=== PATIENT | female | born 1930 | race Caucasian/White ===

== ENCOUNTER 2017-10-23 11:25 | Observation (INO) ==
[2017-10-23] MEDS ORDERED: Aspirin 81 MG TAB.CHEW PO ONE (11:34)
--- NOTE | 2017-10-23 11:48 | Emergency Department Note ---
Disposition Clinical Impression: SOB (shortness of breath) Chest pain Qualifiers: Chest pain type: unspecified Qualified Code(s): R07.9 - Chest pain, unspecified Disposition: Admitted As Inpatient Time of Disposition: 13:41 General Adult HPI - General Chief complaint: ED Chest Pain Stated complaint: chest pain Time Seen by Provider: 10/23/17 11:34 Source: patient, family, EMS Mode of arrival: EMS Limitations: no limitations Nursing Notes Reviewed: Yes Vital Signs Reviewed: Yes - History of Present Illness HPI Narrative: 87-year-old female presenting to the emergency department with chief complaint of left flank pain. According to daughter at bedside patient woke up this morning and had some increasing shortness of breath. She normally does not wear oxygen at home. She needs to wear oxygen to catch her breath. She started stating that her left side under her ribs hurt. The pain did not radiate anywhere. Patient took 3 nitroglycerin home. She stated the first 2 did not help but the third completely relieved her pain. Patient also has a significant past history of atrial fibrillation currently on Coumadin. She also has a history of CHF. Patient did have open-heart surgery in the late 80s. She does follow with cardiology here. They attended to complete a catheterization recently but stated they were unable to because of issues when they hold the Coumadin. Last catheterization she had a stroke. Patient denies any fever, cough or chest pain at this time. Patient is also currently being treated for a urinary tract infection with Bactrim. They started this on Monday. They believe it is a 10 day course. Pain Scale: 0 - Related Data Home Medications Medication Instructions Recorded Confirmed Calcium-Vit D3-Vit K Soft Chew 01/26/17 Citalopram 01/26/17 Coumadin 01/26/17 Ferrous Sulfate 01/26/17 Glimepiride 01/26/17 HYDROcodone/Acet 7.5/325 mg 01/26/17 Losartan Potassium 01/26/17 Metoprolol 01/26/17 Nitroglycerin 01/26/17 Omeprazole 01/26/17 Proair Hfa 01/26/17 Simvastatin 01/26/17 Sucralfate 01/26/17 Vitamin D3 01/26/17 Xanax 0.5 MG Tablet 01/26/17 Zetia 01/26/17 Previous Rx's Medication Instructions Recorded methylPREDNISolone [Medrol] 4 - 24 mg PO DAILY #21 tablet 01/26/17 Ondansetron ODT [Zofran ODT] 4 mg SL Q6HR #10 tab.rapdis 02/07/17 Allergies Allergy/AdvReac Type Severity Reaction Status Date / Time Penicillins AdvReac Anaphylaxis Verified 01/26/17 16:43 All systems ED: reviewed and negative except as stated. Constitutional: Denies: fever, chills Eyes: Reports: as per HPI ENT ED: Reports: as per HPI Cardiovascular: Reports: as per HPI Respiratory: Reports: dyspnea. Denies: cough, wheezes Gastrointestinal: Denies: abdominal pain, nausea, vomiting Past Medical History - Past Medical History Attestation: Yes The following information was validated with the patient. Medical history: Reports: arthritis, asthma, atrial fibrillation, CHF, coronary artery disease, CVA, diabetes, GERD, hyperlipidemia, hypertension, myocardial infarction, TIA, other Surgical history: Reports: coronary bypass (CABG), hysterectomy Psychiatric history: Reports: no psych history MANAGER UNDERWRITING history: Reports: non-contributory - Social History Smoking Status: Never smoker Smokeless Tobacco Status: No Alcohol use: Reports: none Drug use: Reports: none Physical Exam - General Limitations: no limitations General appearance: alert, in no apparent distress - Head Head exam: atraumatic, normocephalic, normal inspection - Eye Eye exam: Present: normal appearance. Absent: scleral icterus, conjunctival injection - Chest Chest inspection: Present: normal inspection, symmetric chest wall rise. Absent : tenderness, rash - Respiratory Respiratory exam: Present: other (Decreased breath sounds bilaterally) - Cardiovascular Cardiovascular exam: Present: regular rate, irregular rhythm - Abdominal Exam Abdominal exam: Present: soft, Non-Tender, normal bowel sounds. Absent: distention, guarding, rebound, rigidity, Song's sign, Rovsing's sign, tenderness at McBurney's Point - Extremities Exam Extremities exam: Present: normal inspection, full ROM - Back Exam Back exam: Present: normal inspection. Absent: CVA tenderness (R), CVA tenderness (L) - Neurological Exam Neurological exam: Present: alert, oriented X3 - Psychiatric Psychiatric exam: Present: normal affect, normal mood - Skin Skin exam: Present: warm, intact Course Course Narrative: 87-year-old female presenting to the emergency Department chief complaint of left flank pain and shortness of breath. Patient does have significant cardiac history and currently being treated for UTI. We will obtain a chest pain workup including a urinalysis. Patient has no CVA tenderness. She is pain- free at this time. Vital signs are stable. She is alert and oriented 3 in the room. Disposition most likely admission but pending results. - Reevaluation(s) Reevaluation #1: Patient had an episode of chest pain while in the emergency department. Any EKG was repeated and was unchanged. The pain went away before nitroglycerin was able to be given. Patient has not had no other symptoms during her stay. She is alert and oriented 3 with stable vital signs. Lab work shows an elevated troponin I 0.05 but this seems to be chronic for the patient. Radiographs of the chest shows increased venous congestion. We will provide the patient with 40 of IV Lasix. At this time we will admit the patient for further workup for her CHF exacerbation and chest pain. Dr. Umana was the accepting physician. He asked to add a BNP which has been completed. Time: 13:41 Vital Signs Temperature 98.2 F 10/23/17 11:27 Pulse Rate 86 10/23/17 11:27 Respiratory Rate 18 10/23/17 11:27 Blood Pressure 132/81 10/23/17 11:27 O2 Sat by Pulse Oximetry 96 10/23/17 11:27 Temperature 98.2 F 10/23/17 11:27 Pulse Rate 82 10/23/17 12:44 Respiratory Rate 18 10/23/17 12:44 Blood Pressure 132/98 10/23/17 12:44 O2 Sat by Pulse Oximetry 96 10/23/17 12:44 Oxygen Delivery Oxygen Delivery Nasal Cannula Medical Decision Making - Lab Data Result diagrams: 10/23/17 12:16 10/23/17 12:16 Lab Results 10/23/17 10/23/17 10/23/17 Range/Units 11:54 12:16 12:16 WBC 9.7 (4.3-11.1) K/mcL RBC 3.87 (3.82-4.97) M/mcL Hgb 11.7 (11.5-15.4) g/dL Hct 36.3 (35.3-44.9) % MCV 93.8 (83.0-100.0) fL MCH 30.2 (28.0-33.3) pg MCHC 32.2 (31.6-35.5) g/dL RDW 13.4 (11.5-14.5) % Plt Count 182 (140-400) K/mcL MPV 9.4 (9.4-12.4) fL Immature Gran % 0.5 (0-4) % Seg Neutrophils % 83.7 % Lymphocytes % 7.8 % Monocytes % 7.2 % Eosinophils % 0.4 % Basophils % 0.4 % Neutrophils # 8.2 (1.6-8.9) K/mcL Lymphocytes # 0.8 (0.6-4.6) K/mcL Monocytes # 0.7 (0.0-1.3) K/mcL Eosinophils # 0.0 (0.0-0.6) K/mcL Basophils # 0.0 (0.0-0.2) K/mcL PT 39.0 H (9.4-12.1) Seconds INR 3.5 APTT 41.0 H (26.0-36.0) Seconds Sodium (136-145) mEq/L Potassium (3.5-4.5) mEq/L Chloride (98-109) mEq/L Carbon Dioxide (19-29) mEq/L BUN (7-20) mg/dL Creatinine (0.57-1.11) mg/dL Est GFR ( Amer) (> 60) Est GFR (Non-Af Amer) (> 60) BUN/Creatinine Ratio (6-26) Glucose (70-99) mg/dL Calculated Osmolality (280-300) Calcium (8.6-10.8) mg/dL Troponin I (0-0.03) ng/mL Urine Color Yellow (Yellow) Urine Clarity Clear (Clear) Urine pH 7.0 (5.0-8.0) pH Units Ur Specific [place] 1.023 (1.010-1.025) Urine Protein Negative (Neg-Trace) mg/dL Urine Glucose (UA) Normal (Normal) mg/dL Urine Ketones Negative (Negative) mg/dL Urine Blood Negative (Negative) Urine Nitrite Negative (Negative) Urine Bilirubin Small H (Negative) Urine Urobilinogen Normal (Normal) mg/dL Ur Leukocyte Esterase Small H (Negative) Urine Microscopic RBC 5-15 H (0-3) per hpf Urine Microscopic WBC 3-5 H (0-3) per hpf Ur Squamous Epith Cells Many H (None-Few) per lpf Urine Bacteria None Seen (None-Few) per hpf Hyaline Casts None Seen (None-Few) per lpf Ur Culture Indicated? NO (NO) 10/23/17 10/23/17 Range/Units 12:16 12:16 WBC (4.3-11.1) K/mcL RBC (3.82-4.97) M/mcL Hgb (11.5-15.4) g/dL Hct (35.3-44.9) % MCV (83.0-100.0) fL MCH (28.0-33.3) pg MCHC (31.6-35.5) g/dL RDW (11.5-14.5) % Plt Count (140-400) K/mcL MPV (9.4-12.4) fL Immature Gran % (0-4) % Seg Neutrophils % % Lymphocytes % % Monocytes % % Eosinophils % % Basophils % % Neutrophils # (1.6-8.9) K/mcL Lymphocytes # (0.6-4.6) K/mcL Monocytes # (0.0-1.3) K/mcL Eosinophils # (0.0-0.6) K/mcL Basophils # (0.0-0.2) K/mcL PT (9.4-12.1) Seconds INR APTT (26.0-36.0) Seconds Sodium 140 (136-145) mEq/L Potassium 5.1 H (3.5-4.5) mEq/L Chloride 104 (98-109) mEq/L Carbon Dioxide 27 (19-29) mEq/L BUN 19 (7-20) mg/dL Creatinine 1.03 (0.57-1.11) mg/dL Est GFR ( Amer) > 60 (> 60) Est GFR (Non-Af Amer) 51 L (> 60) BUN/Creatinine Ratio 18 (6-26) Glucose 159 H (70-99) mg/dL Calculated Osmolality 296 (280-300) Calcium 8.8 (8.6-10.8) mg/dL Troponin I 0.05 H* (0-0.03) ng/mL Urine Color (Yellow) Urine Clarity (Clear) Urine pH (5.0-8.0) pH Units Ur Specific [place] (1.010-1.025) Urine Protein (Neg-Trace) mg/dL Urine Glucose (UA) (Normal) mg/dL Urine Ketones (Negative) mg/dL Urine Blood (Negative) Urine Nitrite (Negative) Urine Bilirubin (Negative) Urine Urobilinogen (Normal) mg/dL Ur Leukocyte Esterase (Negative) Urine Microscopic RBC (0-3) per hpf Urine Microscopic WBC (0-3) per hpf Ur Squamous Epith Cells (None-Few) per lpf Urine Bacteria (None-Few) per hpf Hyaline Casts (None-Few) per lpf Ur Culture Indicated? (NO) - EKG Data EKG #1 EKG attestation: Yes I reviewed and interpreted this EKG. EKG results narrative: Atrial fibrillation. Rate control a 73 minute. QRS 102, QTC 406. Poor R-wave progression. No signs of acute ST segment elevation or ischemia. When compared to previous EKG completed on 03/13/2017 no significant changes noted. EKG #2 EKG attestation: Yes I reviewed and interpreted this EKG. EKG results narrative: Atrial fibrillation. A 7 bpm. Poor R-wave progression. QRS 100, QTC 438. Compared to previous EKG completed earlier today at 11:31. No significant changes noted.
--- NOTE | 2017-10-23 12:06 | Emergency Department Note ---
START Narrative - START START: I examined this patient and my medical decision-making was reviewed with the PRESSURE SEALER AND TESTER/PA/Advanced Practice Nurse/Resident Physician. I agree with the documented findings, disposition and treatment plan as described except to the extent set forth below. ED attending: Patient's emergency medicine resident Dr. Sherley Draper. Please see copy of this note for H&P evaluation and management and ED disposition. We both had independent [id number] time in contact with this patient. Briefly: A 7-year-old female who presents with chest discomfort and shortness of breath history of CAD and bypass surgery years ago. Patient's daughter provides most the history. EKG shows nonspecific ST-T changes. Patient will get ED workup and admission. Provided 30 minutes critical care services to this patient. Disposition pending
[2017-10-23 12:12] LABS: Bilirubin,Urine Small (Negative); Blood,Urine Negative (Negative); Clarity,Urine Clear (Clear); Color,Urine Yellow (Yellow); Glucose,Urine (UA) Normal (Normal); Ketones,Urine Negative (Negative); Leukocyte Esterase,Urine Small (Negative); Nitrite,Urine Negative (Negative); Protein,Urine Negative (Neg-Trace); Specific Gravity,Urine 1.023 (1.010-1.025); Urobilinogen,Urine Normal (Normal)
[2017-10-23 12:14] LABS: Bacteria,Urine None Seen per hpf (None-Few); Hyaline Casts,Urine None Seen per lpf (None-Few); Squamous Epithelial Cell,Urine Many per lpf (None-Few)
[2017-10-23] MEDS ORDERED: Nitroglycerin 0.4 MG TAB.SUBL SL PRN ×2 (12:23→18:13)
[2017-10-23 12:25] LABS: Basophils % 0.4 %; Eosinophils % 0.4 %; Hematocrit 36.3 % (35.3-44.9); Hemoglobin 11.7 g/dL (11.5-15.4); Immature Granulocytes % 0.5 % (0-4); Lymphocytes # 0.8 K/mcL (0.6-4.6); Lymphocytes % 7.8 %; Mean Corpuscular HGB Conc 32.2 g/dL (31.6-35.5); Mean Corpuscular Hemoglobin 30.2 pg (28.0-33.3); Mean Corpuscular Volume 93.8 fL (83.0-100.0); Mean Platelet Volume 9.4 fL (9.4-12.4); Monocytes # 0.7 K/mcL (0.0-1.3); Monocytes % 7.2 %; Neutrophils # 8.2 K/mcL (1.6-8.9); Platelet Count 182 K/mcL (140-400); Red Blood Count 3.87 M/mcL (3.82-4.97); Red Cell Distribution Width 13.4 % (11.5-14.5); Segmented Neutrophils % 83.7 %
[2017-10-23 12:31] LABS: INR 3.5
[2017-10-23 12:40] LABS: BUN/Creatinine Ratio 18 (6-26); Blood Urea Nitrogen 19 mg/dL (7-20); Calcium 8.8 mg/dL (8.6-10.8); Carbon Dioxide 27 mEq/L (19-29); Chloride 104 mEq/L (98-109); Glucose 159 mg/dL (70-99); Osmolality,Calculated 296 (280-300); Potassium 5.1 mEq/L (3.5-4.5); Sodium 140 mEq/L (136-145); eGFR For African Americans > 60 (> 60); eGFR For Non-African Americans 51 (> 60)
[2017-10-23] MEDS ORDERED: Furosemide 40 MG/4 ML VIAL IVP ONE (13:29)
--- NOTE | 2017-10-23 16:00 | Electrocardiograph Report ---
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
[2017-10-23] MEDS ORDERED: Naloxone 0.4 MG/ML INJ IVP PRN (18:07)
[2017-10-23] MEDS ORDERED: Ondansetron 4 MG/2 ML VIAL IVP PRN (18:07)
[2017-10-23] MEDS ORDERED: Acetaminophen 325 MG TABLET PO PRN (18:07)
[2017-10-23] MEDS ORDERED: *HR* HYDROcodone/Acet 7.5/325 mg TABLET PO PRN (18:13)
[2017-10-23] MEDS ORDERED: Dextrose Gel 15 GM PO PRN ×2 (18:17)
[2017-10-23] MEDS ORDERED: *HR* Dextrose 50 % in Water (Syg) 50 ML SYRINGE IVP PRN (18:17)
[2017-10-23] MEDS ORDERED: D5% in Water 1,000 ML IVC PRN (18:17)
--- NOTE | 2017-10-23 20:34 | Internal Med History&Physical ---
<Portillo Harrell - Last Filed: 10/23/17 22:16> Date of Encounter: 10/23/17 Time of Encounter: 18:30 Assessment and Plan (1) Acute exacerbation of CHF (congestive heart failure) Current visit: Yes Status: Acute Acute exacerbation of CHF w/BNP of 148. Pt. reports she did not take her PO lasix for three days and her abdominal girth increased in same three days along w/SOB and dyspnea. Hx of CHF and COPD. Bilateral pedal edema. 1-View CXR today shows CHF with mild pulmonary edema. Lasix 40 mg IVP BID ordered. 1.5L daily fluid restriction. Monitor I&O and daily weight. Continuous cardiac telemetry. Supplemental O2 and SpO2 monitoring. Monitor pt. and f/u labs. Pt. discussed w/ Dr. Garvey who agrees w/plan of care. Pt. is high risk for respiratory failure and further morbidity d/t infection, current sx, hx, and risk factors. Observation. Qualifiers: Congestive heart failure type: unspecified congestive heart failure type Qualified Code(s): I50.9 - Heart failure, unspecified (2) SOB (shortness of breath) Current visit: Yes Status: Acute Acute SOB d/t acute exacerbation of CHF. Supplemental O2 and SpO2 monitoring. Falls/safety precautions. (3) Hyperkalemia Current visit: Yes Status: Acute Acute hyperkalemia with potassium level of 5.1 on admission. Monitor f/u labs for potassium status. Continuous cardiac telemetry. (4) Atypical chest pain Current visit: Yes Status: Acute Pt. reports acute chest pressure that began this morning and she describes as sharp, stabbing pain in the left chest w/radiation to her back which is most likely d/t demand ischemia r/t current acute exacerbation of CHF. Pt. also reports she did not take her PO lasix for 3 days and her abdominal girth increased substantially with SOB/dyspnea. Initial troponin 0.05. Second troponin 0.06. Will trend x1. Continuous cardiac telemetry. Echocardiogram on shows LVEF 50-55%, normal LV chamber size and function, mild concentric left ventricular hypertrophy, and atypical septal motion consistent with post- operative status. Pt. had previously elevated troponin in January and March 2017. Nitroglycerin PRN. Pt. to be monitored closely. (5) UTI (urinary tract infection) Current visit: Yes Status: Acute Pt. reports dx of UTI last Monday by PCP and was placed on PO Bactrim for infection coverage. Reports sx are improving. Hold pts. PO Bactrim d/t current hyperkalemia and administer Macrodantin 100 mg BID. Monitor f/u labs. Qualifiers: Urinary tract infection type: site unspecified Hematuria presence: without hematuria Qualified Code(s): N39.0 - Urinary tract infection, site not specified (6) Atrial fibrillation Current visit: Yes Status: Chronic Hx of chronic atrial fibrillation. Pt. reports she does not take medication for rate control. EKG today shows atrial fibrillation with low QRS voltage in the extremity leads and possible anterior myocardial infarction of indeterminate age. Continuous cardiac telemetry. Continue pts. Coumadin w/pharmacy dosing. Qualifiers: Atrial fibrillation type: chronic Qualified Code(s): I48.2 - Chronic atrial fibrillation (7) CAD (coronary artery disease) Current visit: Yes Status: Chronic Hx of chronic CAD and coronary bypass surgery. Continue pts. aspirin therapy, Cozaar, Lopressor, Zocor, and potassium. Continuous cardiac telemetry Qualifiers: Coronary Disease-Associated Artery/Lesion type: eek artery [place] vs. transplanted heart: eek heart Associated angina: angina presence unspecified Qualified Code(s): I25.10 - Atherosclerotic heart disease of eek coronary artery without angina pectoris (8) GERD (gastroesophageal reflux disease) Current visit: Yes Status: Chronic Hx of chronic GERD. IVP Zofran 4 mg Q6 PRN. Continue pts. Prilosec. Qualifiers: Esophagitis presence: esophagitis presence not specified Qualified Code(s) : K21.9 - Gastro-esophageal reflux disease without esophagitis (9) HTN (hypertension) Current visit: Yes Status: Chronic Hx of chronic HTN. Monitor pt. and VS. Continue pts. Cozaar and Lopressor. Qualifiers: Hypertension type: essential hypertension Qualified Code(s): I10 - Essential (primary) hypertension (10) HLD (hyperlipidemia) Current visit: Yes Status: Chronic Hx of chronic HLD. Lipid panel in a.m. labs. Continue patient's Zocor. Qualifiers: Hyperlipidemia type: pure hypercholesterolemia Qualified Code(s): E78.00 - Pure hypercholesterolemia, unspecified; E78.0 - Pure hypercholesterolemia (11) DVT prophylaxis Current visit: Yes Status: Acute Continue pts Coumadin w/pharmacy dosing for DVT prophylaxis. Monitor pt. for signs of bleeding. Internal Medicine - H&P: HPI Chief complaint: SOB/Dyspnea/Chest pressure Admitted From: Emergency Dept Plans for Post Hospital Care: Home History of present illness: Ms. 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 while she was laying in bed and she describes as sharp and stabbing pain in her left chest w/ radiation to her back. States it happened yesterday briefly and she took 1 SL nitro. Reports she took three SL nitro today which helped w/pain. Pt. also states she was dx w/UTI last week and placed on PO Bactrim. Daughter states pt. has not taken her lasix in three days. Pt. states her abdominal girth has increased in the past several days causing her SOB to become worse. Pt. denies nausea, vomiting, fever, chills, abdominal pain, diarrhea, constipation, changes in vision, headache, cough, unusual bleeding, numbness, tingling, palpitations, dizziness, lightheadedness, pre-syncope, or syncope. Past Med Surg Social Fam HX - Past Medical History Source: patient, old records reviewed, obtained from family Medical history: arthritis, asthma, atrial fibrillation, CHF, coronary artery disease, CVA, diabetes, GERD, hyperlipidemia, hypertension, myocardial infarction, TIA, other Psychiatric history: no psych history - Past Surgical History Surgical History: coronary bypass (CABG), hysterectomy (Partial) - Social History Smoking Status: Never smoker Smokeless Tobacco Status: No Alcohol use: none Drug use: none Current living situation: Home Activity Level: Uses cane/walker Recent Out of Country Travel Within the Last 8 Weeks: No Exposure or Possible Exposure to Illness During Travel: No - Family History Father Race: Family Member Ethnicity: Non- Living Status: Age at : 53 Cause of : Lung cancer Hx Family Cancer: Yes (Lung) Mother Race: Family Member Ethnicity: Non- Living Status: Age at : 75 Cause of : Stroke Hx Family Cardiac Disorders: Yes (Stroke, atherosclerosis) Brother Race: Family Member Ethnicity: Non- Living Status: Age at : 63 Cause of : Stroke Hx Family Cardiac Disorders: Yes (Stroke) Sister Race: Family Member Ethnicity: Non- Living Status: Age at : 86 Cause of : Alzheimer's disease Hx Family Neurologic Disorders: Yes (Alzheimer's disease) Internal Medicine - H&P: Meds Citalopram [CeleXA] 20 mg PO DAILY 10/23/17 [History] Ferrous Sulfate [Iron] 325 mg PO BID 10/23/17 [History] Furosemide [Lasix] 40 mg PO DAILY 10/23/17 [History] Gabapentin [Neurontin] 100 mg PO BID 10/23/17 [History] Glimepiride [Amaryl] 2 mg PO DAILY 10/23/17 [History] HYDROcodone/Acet 7.5/325 mg [[place] 7.5-325 mg] 1 tab PO TID PRN 10/23/17 [ History] Losartan [Cozaar] 25 mg PO DAILY 10/23/17 [History] Metoprolol [Lopressor] 25 mg PO DAILY 10/23/17 [History] Nitroglycerin [Nitrostat] 0.4 mg SL Q5M PRN 10/23/17 [History] Omeprazole [PriLOSEC] 40 mg PO DAILY 10/23/17 [History] Potassium Chloride [K-Tab ER] 20 meq PO DAILY 10/23/17 [History] Simvastatin [Zocor] 20 mg PO DAILY 10/23/17 [History] Sulfamethoxazole/Trimeth DS [Bactrim DS] 1 each PO BID 10/23/17 [History] Warfarin [Coumadin] 2.5 mg PO SUMOWETHFRSA 10/23/17 [History] Warfarin [Coumadin] 5 mg PO TU 10/23/17 [History] 3 Allergy/AdvReac Type Severity Reaction Status Date / Time Penicillins AdvReac Anaphylaxis Verified 01/26/17 16:43 All Systems PM: A 10-system review of systems was performed and is negative for pertinent findings except as documented above in the HPI. - Constitutional Constitutional: no chills, no fever(s), no night sweats - EENT Eyes: no change in vision, no discharge, no pain, no photophobia Ears: no ear discharge, no ear pain, no tinnitus Nose, mouth and throat: no dysphagia, no nasal discharge, no neck pain, no sore throat - Breasts Breasts: as per HPI - Cardiovascular Cardiovascular ROS IM: as per HPI, chest pain (Left-sided chest pressure w/ radiation to left shoulder blade), dyspnea, dyspnea on exertion, no diaphoresis , no lightheadedness, no palpitations, no syncope - Respiratory Respiratory: as per HPI, dyspnea, dyspnea on exertion, no cough, no wheezing, no excessive phlegm production - Gastrointestinal Gastrointestinal: no abdominal pain, no diarrhea, no hematemesis, no hematochezia, no melena, no nausea, no vomiting - Genitourinary Genitourinary: urinary frequency, urinary urgency, no change in urinary stream, no dysuria, no flank pain, no hematuria Menstruation: as per HPI - Musculoskeletal Musculoskeletal ROS IM: no numbness, no tingling - Integumentary Integumentary IM: no rash, no unusual bruising - Neurological Neurological ROS: no confusion, no convulsions, no focal weakness, no numbness, no tingling, no tremor(s) - Psychiatric Psychiatric: as per HPI - Endocrine Endocrine IM: as per HPI - Hematologic/Lymphatic Hematologic/Lymphatic: no easy bruising - Allergic/Immunologic Allergic/Immunologic: as per HPI - Constitutional Vitals: Temp Pulse Resp BP Pulse Ox 97.6 F 90 14 133/58 98 10/23/17 19:16 10/23/17 19:16 10/23/17 19:16 10/23/17 19:16 10/23/17 19:16 General appearance: Present: cooperative, A&O X 3, pleasant, no acute distress, obese, answers questions appropriately - Head Head exam: Present: atraumatic, normal inspection, normocephalic - Eye Eye exam: Present: PERRL, conjuntiva pink, sclera anicteric Pupils: Present: PERRL - ENT ENT exam: Present: normal exam, normal external ear exam - Neck Neck exam general surgery: Present: normal inspection, supple, trachea midline. Absent: lymphadenopathy - Respiratory Respiratory exam: Present: accessory muscle use, decreased breath sounds, wheezes - Cardiovascular Cardiovascular exam: Present: irregular rhythm - GI/Abdominal GI/Abdominal exam: Present: normal bowel sounds, soft, no peritoneal signs. Absent: distended, tenderness - Rectal Rectal exam: Present: deferred - Additional comments: exam deferred. - Extremities Exam Extremities exam: Present: pedal edema, warm, radial pulses palpable and symmetrical. Absent: calf tenderness, cyanotic - Back Exam Back exam: Present: normal inspection - Neurological Exam Neurological exam: Present: CN II-XII intact, oriented X3, no focal deficits. Absent: pronater drift, facial droop, speech deficit - Psychiatric Psychiatric exam: Present: normal affect, normal mood - Skin Skin exam: Present: dry, intact Internal Med - H&P Results - Labs CBC & Chem 7: 10/23/17 12:16 10/23/17 12:16 Labs: Cardiac Enzymes 10/23/17 Range/Units 18:40 Troponin I 0.06 H* (0-0.03) ng/mL - EKG Data Prior EKG available for review: yes When compared to previous EKG: there is no significant change Interpretation IM: suggestive of ischemia EKG comments: 10/23/17 21:03 EKG dated 10/23/17 11:31 shows atrial fibrillation, low QRS voltage in the extremity leads, possible anterior myocardial infarction of indeterminate age. EKG dated 10/23/17 12:29 shows atrial fibrillation, low QRS voltage in the extremity leads, possible anterior myocardial infarction of indeterminate age. - Diagnostic Studies Chest x-ray Additional comments: Impressions Chest X-Ray 10/23/17 11:34 IMPRESSION: CHF with mild pulmonary edema. D/ / Angel Srivastava MD / Angel Srivastava MD Interpreting Provider: Angel Srivastava MD <Rigoberto Garvey - Last Filed: 10/24/17 05:12> Date of Encounter: 10/23/17 Internal Medicine - H&P: HPI History of present illness: Ms. Diaz is a 87 year old female All Systems PM: A 10-system review of systems was performed and is negative for pertinent findings except as documented above in the HPI. - Constitutional Vitals: Temp Pulse Resp BP Pulse Ox 98.3 F 57 15 140/65 94 10/24/17 03:32 10/24/17 03:32 10/24/17 03:32 10/24/17 03:32 10/24/17 03:32 Internal Med - H&P Results - Labs CBC & Chem 7: 10/24/17 00:34 10/24/17 00:34 Labs: Short CBC 10/24/17 Range/Units 00:34 WBC 8.5 (4.3-11.1) K/mcL Hgb 11.9 (11.5-15.4) g/dL Hct 37.3 (35.3-44.9) % Plt Count 190 (140-400) K/mcL Neutrophils # 6.1 (1.6-8.9) K/mcL BMP 10/24/17 00:34 Sodium 138 Potassium 4.0 D Chloride 99 Carbon Dioxide 31 H BUN 18 Creatinine 1.35 H Glucose 139 H Calcium 9.3 Cardiac Enzymes 10/23/17 10/24/17 Range/Units 18:40 00:34 Troponin I 0.06 H* 0.07 H* (0-0.03) ng/mL Liver Function 10/24/17 Range/Units 00:34 Total Bilirubin 0.6 (0.2-1.2) mg/dL AST 22 (5-34) Units/L ALT 20 (0-55) Units/L Alkaline Phosphatase 86 (38-126) Units/L Albumin 3.2 L (3.5-5.0) g/dL - Attending Attestation I have personally seen and examined the patient and reviewed H&P and discuss treatment plan with advancepractitioner. Patient came in with shortness of breath as she missed a couple of doses of her Lasix. She has been given IV Lasix and feels better. Her troponin is slightly elevated but perhaps secondary to demand ischemia due to CHF. They will be watched closely. Family has refused aggressive targeted interventions in the past. Her chest is clear now heart S1 and S2 irregular rhythm abdomen soft nontender no organomegaly. 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 Apparently she has been treated as an outpatient for UTI but since her INR is 3.5 to switch her to Rocephin.
[2017-10-23] MEDS: Insulin LISPRO 300 UNITS/3 ML VIAL SQ SCH (20:57)
[2017-10-23] MEDS: Lactobacillus 1 EACH CAP.SPRINK PO SCH (20:57)
[2017-10-23] MEDS: Furosemide 40 MG/4 ML VIAL IVP SCH (20:57)
[2017-10-23] MEDS: Gabapentin 100 MG CAPSULE PO SCH (20:57)
[2017-10-23] MEDS ORDERED: Sulfamethoxazole/Trimeth DS 1 EACH TABLET PO SCH (21:00)
[2017-10-24 01:02] LABS: Basophils % 0.4 %; Eosinophils # 0.1 K/mcL (0.0-0.6); Eosinophils % 0.8 %; Hematocrit 37.3 % (35.3-44.9); Hemoglobin 11.9 g/dL (11.5-15.4); Immature Granulocytes % 0.4 % (0-4); Lymphocytes # 1.5 K/mcL (0.6-4.6); Lymphocytes % 17.8 %; Mean Corpuscular HGB Conc 31.9 g/dL (31.6-35.5); Mean Corpuscular Hemoglobin 29.7 pg (28.0-33.3); Mean Platelet Volume 9.4 fL (9.4-12.4); Monocytes # 0.7 K/mcL (0.0-1.3); Monocytes % 8.6 %; Neutrophils # 6.1 K/mcL (1.6-8.9); Platelet Count 190 K/mcL (140-400); Red Blood Count 4.01 M/mcL (3.82-4.97); Red Cell Distribution Width 13.5 % (11.5-14.5)
[2017-10-24 01:22] LABS: Albumin 3.2 g/dL (3.5-5.0); Bilirubin,Total 0.6 mg/dL (0.2-1.2); Calcium 9.3 mg/dL (8.6-10.8); Chol/HDL Ratio 2.9 (0-4.9); Globulin 3.3 g/dL (2.4-3.5); Magnesium 2.2 mg/dL (1.6-2.6); Total Protein 6.5 g/dL (6.0-8.3)
[2017-10-24] MEDS ORDERED: Sulfamethoxazole/Trimeth DS 1 EACH TABLET PO SCH ×2 (05:00→09:00)
[2017-10-24] MEDS: Gabapentin 100 MG CAPSULE PO SCH ×2 (08:04→21:37)
[2017-10-24] MEDS: Insulin LISPRO 300 UNITS/3 ML VIAL SQ SCH ×4 (08:04→21:37)
[2017-10-24] MEDS: Lactobacillus 1 EACH CAP.SPRINK PO SCH ×2 (08:05→21:36)
[2017-10-24] MEDS: Furosemide 40 MG/4 ML VIAL IVP SCH ×2 (08:06→17:20)
[2017-10-24] MEDS: Aspirin Enteric Coated 81 MG Tablet PO SCH (08:06)
[2017-10-24 09:39] LABS: INR 2.9; Prothrombin Time 31.9 Seconds (9.4-12.1)
--- NOTE | 2017-10-24 13:05 | Cardiology Consult Note ---
Date of Encounter: 10/24/17 Time of Encounter: 10:00 Assessment and Plan (1) Acute exacerbation of CHF (congestive heart failure) Current Visit: Yes Status: Acute Per cardiology: -Known history of CHF. -presented with increased shortness of breath. -Patient reports has noticed increased abdominal girth and increased weights. -Reports missed lasix doses. -CHest x-ray with CHF and mild pulmonary edema. -On lasix 40mg IV BID. -Net negative 2083ml. -CHF education reinforced with patient. Patient states she has not been weighing herself daily and has missed lasix. -Strict i/os, daily weights, fluid restriction. -Will continue to monitor. Qualifiers: Congestive heart failure type: unspecified congestive heart failure type Qualified Code(s): I50.9 - Heart failure, unspecified (2) Chest pain Current Visit: Yes Status: Acute Per cardiology: -Had one episode of chest pain a rest. -States pain was worse with deep inspiration. -Denies exertional symptoms. -Denies current chest pain. -Will check limited TTE. (3) Atrial fibrillation Current Visit: Yes Status: Chronic Per cardiology: -Known atrial fibrillation. 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 -Rate controlled on beta blcoker. -Will continue to monitor. Qualifiers: Atrial fibrillation type: chronic Qualified Code(s): I48.2 - Chronic atrial fibrillation (4) CAD (coronary artery disease) Current Visit: Yes Status: Chronic Per cardiology: -Know CAD with CABG 1992. -Denies current chest pain, had episode of chest pain prior to arrival. -Nuc stress 2012 with small sized reversible perfusion defect, moderate in severity in the mid-anterior segment wall. Also mixed perfusion defect in the anterolateral wall suggestive of ischemia in addition to probable breast attenuation artifact. -Nuc stress 11/2016 with medium sized, moderate intensity , predominately reversible perfusion defect in the mid-apical anterior wall and apex. -TTE 07/2017 with LVEF 50-55%. -On asa, statin, beta blokcer, ARB. -Will check limited TTE. Qualifiers: Coronary Disease-Associated Artery/Lesion type: unspecified vessel or lesion type [place] vs. transplanted heart: [place] heart Associated angina: angina presence unspecified Qualified Code(s): I25.10 - Atherosclerotic heart disease of [place] coronary artery without angina pectoris (5) TASH (acute kidney injury) Current Visit: Yes Status: Acute Per cardiology: -Creatinine today 1.35. -Baseline 0.7-0.8. -Management per primary service. (6) Elevated troponin Current Visit: Yes Status: Acute Per cardiology: -Troponin 0.5, 0.06, 0.07 in the setting of CHF, TASH. -Denies current chest pain, however had chest pain prior to arrival. -ECG with no acute ischemic changes. -TTE pending. -DO not suspect NSTEMI, suspect demand ischemia related to above. NO cardiac rehab warranted at this time. -Further recommendations pending TTE. Discussion w patient/family: The assessment and plan as outlined above was discussed with the patient and/or family members who expressed understanding and agreement. All questions were answered. Thank you for involving us in the care of your patient. Please call with any questions. Discussed and reviewed with . History of Present Illness Consult date: 10/24/17 Requesting physician: Fani Reyes Consult reason: elevated trop, chest pain Chief complaint: shortness of breath History of present illness: Ms. Diaz is a 87 year old female with a relevant past medical history of CAD s/ p CABG 1992, PAF, CVA, HTN, DM, anemia, VT, CHF. Patient presented to [facility] with complaints of increased shortness of breath, fatigue, and chest pain. Patient states that she had missed 2-3 doses of her lasix at home, on accident. Patient states she noticed increased abdominal girth and increased weight, however she attributed symptoms to eating [employer] cookies. Patient states for the past few days has also noticed increased shortness of breath with exertion. Pateint states yesterday, while at rest noticed some chest pressure. Denies exertional chest pain/pressure. Of note, daughter reports until this episode of chest pressure, has not had pain/pressure in a "long time." Past Med Surg Social Fam HX - Past Medical History Attestation: Yes The following information was validated with the patient. Source: patient, old records reviewed, obtained from family Medical history: arthritis, asthma, atrial fibrillation, CHF, coronary artery disease, CVA, diabetes, GERD, hyperlipidemia, hypertension, myocardial infarction, TIA, other Psychiatric history: no psych history - Past Surgical History Surgical History: coronary bypass (CABG), hysterectomy (Partial) - Social History Smoking Status: Never smoker Smokeless Tobacco Status: No Alcohol use: none Drug use: none - Family History Father Race: Family Member Ethnicity: Non- Living Status: Age at : 53 Cause of : Lung cancer Hx Family Cancer: Yes (Lung) Mother Race: Family Member Ethnicity: Non- Living Status: Age at : 75 Cause of : Stroke Hx Family Cardiac Disorders: Yes (Stroke, atherosclerosis) Brother Race: Family Member Ethnicity: Non- Living Status: Age at : 63 Cause of : Stroke Hx Family Cardiac Disorders: Yes (Stroke) Sister Race: Family Member Ethnicity: Non- Living Status: Age at : 86 Cause of : Alzheimer's disease Hx Family Neurologic Disorders: Yes (Alzheimer's disease) Medications and Allergies Citalopram [CeleXA] 20 mg PO DAILY 10/23/17 [History] Ferrous Sulfate [Iron] 325 mg PO BID 10/23/17 [History] Furosemide [Lasix] 40 mg PO DAILY 10/23/17 [History] Gabapentin [Neurontin] 100 mg PO BID 10/23/17 [History] Glimepiride [Amaryl] 2 mg PO DAILY 10/23/17 [History] HYDROcodone/Acet 7.5/325 mg [Leslie 7.5-325 mg] 1 tab PO TID PRN 10/23/17 [ History] Losartan [Cozaar] 25 mg PO DAILY 10/23/17 [History] Metoprolol [Lopressor] 25 mg PO DAILY 10/23/17 [History] Nitroglycerin [Nitrostat] 0.4 mg SL Q5M PRN 10/23/17 [History] Omeprazole [PriLOSEC] 40 mg PO DAILY 10/23/17 [History] Potassium Chloride [K-Tab ER] 20 meq PO DAILY 10/23/17 [History] Simvastatin [Zocor] 20 mg PO DAILY 10/23/17 [History] Sulfamethoxazole/Trimeth DS [Bactrim DS] 1 each PO BID 10/23/17 [History] Warfarin [Coumadin] 2.5 mg PO SUMOWETHFRSA 10/23/17 [History] Warfarin [Coumadin] 5 mg PO TU 10/23/17 [History] 3 Allergy/AdvReac Type Severity Reaction Status Date / Time Penicillins AdvReac Anaphylaxis Verified 01/26/17 16:43 All Systems Review: A 10-system review of systems was performed and is negative for pertinent findings except as documented above in the HPI. - Constitutional Constitutional: fatigue - Cardiovascular Cardiovascular: as per HPI, chest pain at rest, dyspnea on exertion Physical Examination Vital Signs Temperature 98.2 F 10/23/17 11:27 Pulse Rate 86 10/23/17 11:27 Respiratory Rate 18 10/23/17 11:27 Blood Pressure 132/81 10/23/17 11:27 O2 Sat by Pulse Oximetry 96 10/23/17 11:27 Temperature 97.9 F 10/24/17 07:26 Pulse Rate 80 10/24/17 07:26 Respiratory Rate 16 10/24/17 07:26 Blood Pressure 98/63 10/24/17 07:26 O2 Sat by Pulse Oximetry 99 10/24/17 07:26 Oxygen Delivery Oxygen Delivery Nasal Cannula General: Conversant, No Apparent Distress HEENT: Atraumatic, Normocephaly, Mucus Membranes Moist Neck: No JVD, Normal carotid pulses Cardiac: Normal S1 and S2, No Murmur, Other (Irregularly irregular) Lungs: Normal Breath Sounds, No Wheeze, Rales, Rhonchi Neuro: Alert and responsive, No focal deficits noted Abdomen: Soft, Non-Tender Skin: No rashes noted on visualized skin Musculoskeletal: No Chest Wall Tenderness Extremities: No Clubbing, No Cyanosis, No Edema, Normal Pulses Results 10/24/17 00:34 10/24/17 00:34 Lab Results Active Medications Acetaminophen (Tylenol) 650 mg PO Q6HR PRN PRN Reason: Mild Pain (1-3) Stop: 04/24/18 18:08 Hydrocodone Bitart/Acetaminophen (Leslie 7.5-325 Mg) 1 tab PO TID PRN PRN Reason: Moderate Pain Stop: 04/24/18 18:14 Aspirin (Aspirin Ec) 81 mg PO DAILY [facility] Stop: 04/25/18 09:01 Last Admin: 10/24/17 08:06 Dose: 81 mg Citalopram Hydrobromide (Celexa) 20 mg PO DAILY [facility] Stop: 04/25/18 09:01 Last Admin: 10/24/17 08:04 Dose: 20 mg Dextrose/Water (Dextrose 50% (Syg)) 25 ml IVP AD PRN PRN Reason: Hypoglycemia Stop: 04/24/18 18:18 Ferrous Sulfate (Ferrous Sulfate) 325 mg PO BIDWM RADHA Stop: 04/24/18 21:01 Last Admin: 10/24/17 08:05 Dose: 325 mg Furosemide (Lasix) 40 mg IVP BIDDIURETIC RADHA Stop: 04/24/18 21:01 Last Admin: 10/24/17 08:06 Dose: 40 mg Gabapentin (Neurontin) 100 mg PO BID [facility] Stop: 04/24/18 21:01 Last Admin: 10/24/17 08:04 Dose: 100 mg Glucagon (Glucagen) 1 mg IM ONCE PRN PRN Reason: Hypoglycemia Stop: 04/24/18 18:18 Glucose (Gluctose) 15 gm PO ONCE PRN PRN Reason: Hypoglycemia Stop: 04/24/18 18:18 Glucose (Gluctose) 30 gm PO ONCE PRN PRN Reason: Hypoglycemia Stop: 04/24/18 18:18 Dextrose (Dextrose 5%) 1,000 mls @ 100 mls/hr IVC .Q10H PRN PRN Reason: HYPOGLYCEMIA Stop: 04/24/18 18:18 Insulin Human Lispro (Humalog) 0 units SQ TIDAC RADHA PRN Reason: Protocol Stop: 04/25/18 07:31 Last Admin: 10/24/17 11:40 Dose: 300 units Insulin Human Lispro (Humalog) 0 units SQ HS RADHA PRN Reason: Protocol Stop: 04/24/18 21:01 Last Admin: 10/23/17 20:57 Dose: Not Given Lactobacillus Acidophilus/Rhamnosus (Culturelle) 1 each PO BID [facility] Stop: 04/24/18 21:01 Last Admin: 10/24/17 08:05 Dose: 1 each Losartan Potassium (Cozaar) 25 mg PO DAILY RADHA PRN Reason: Protocol Stop: 04/25/18 09:01 Last Admin: 10/24/17 08:05 Dose: 25 mg Metoprolol Tartrate (Lopressor) 25 mg PO DAILY [facility] Stop: 04/25/18 09:01 Last Admin: 10/24/17 08:05 Dose: 25 mg Naloxone HCl (Narcan) 0.4 mg IVP Q2MIN PRN PRN Reason: Opioid Reversal Stop: 04/24/18 18:08 Nitrofurantoin Macrocrystals (Macrodantin) 100 mg PO BID [facility] Stop: 04/24/18 22:16 Last Admin: 10/24/17 11:40 Dose: 100 mg Nitroglycerin (Nitroglycerin) 0.4 mg SL Q5MIN PRN PRN Reason: Chest Pain Stop: 04/24/18 12:24 Omeprazole (Prilosec) 40 mg PO DAILY [facility] Stop: 04/25/18 09:01 Last Admin: 10/24/17 08:05 Dose: 40 mg Ondansetron HCl (Zofran) 4 mg IVP Q8HR PRN PRN Reason: Nausea And Vomiting Stop: 04/24/18 18:08 Potassium Chloride (Potassium Chloride) 20 meq PO DAILY [facility] Stop: 04/25/18 09:01 Last Admin: 10/24/17 08:05 Dose: 20 meq Simvastatin (Zocor) 20 mg PO HS RADHA PRN Reason: Protocol Stop: 04/25/18 21:01 Trimethoprim/Sulfamethoxazole (Bactrim Ds) 1 each PO BID [facility] Stop: 04/25/18 09:01 Last Admin: 10/24/17 11:45 Dose: Not Given Warfarin Sodium (Coumadin Perpt) 1 each PO DAILY@1800 PRN PRN Reason: SEE COMMENTS Stop: 04/25/18 18:01 Warfarin Sodium (Coumadin) 2 mg PO 1800 ONE Stop: 10/24/17 18:01 Laboratory Tests 10/23/17 10/23/17 10/23/17 12:16 12:16 12:16 Hgb INR Creatinine 1.03 Troponin I 0.05 H* B-Natriuretic Peptide 148 H 10/23/17 10/24/17 10/24/17 18:40 00:34 00:34 Hgb 11.9 INR Creatinine Troponin I 0.06 H* 0.07 H* B-Natriuretic Peptide 10/24/17 10/24/17 00:34 09:07 Hgb INR 2.9 Creatinine 1.35 H Troponin I B-Natriuretic Peptide - Imaging and Cardiology Chest Xray: report reviewed Stress Test: report reviewed Echo: report reviewed - EKG Interpretation EKG results cardiology: personally reviewed (ECG with atrial fibrillation, HR 87.), other (Telemetry reviewed with average HR previous 12 hours noted to be 79 , atrial fibrillation. PVCs noted.) Consult Discharge Plan - Plan Referrals: Virginia Diaz, FLOORING INSTALLER [Primary Care Provider] -
--- NOTE | 2017-10-24 13:24 | Internal Med Progress Note ---
Date of Encounter: 10/24/17 Time of Encounter: 13:22 - Assessment and plan (1) Acute exacerbation of CHF (congestive heart failure) Current Visit: Yes Status: Acute Assessment and plan: Acute exacerbation of CHF w/BNP of 148. Pt. reports she did not take her PO lasix for three days and her abdominal girth increased in same three days along w/SOB and dyspnea. Bilateral pedal edema. 1-View CXR today shows CHF with mild pulmonary edema. 10/24/17 TTE EF 50%. Cont IV Lasix. 1.5L daily fluid restriction. Monitor I&O and daily weight. Continuous cardiac telemetry. Cardiology following Qualifiers: Congestive heart failure type: unspecified congestive heart failure type Qualified Code(s): I50.9 - Heart failure, unspecified (2) Atrial fibrillation Current Visit: Yes Status: Chronic Assessment and plan: per hx. Rate controlled. Cont home BB. Coumadin per pharmacy. INR 3.5 on 10/24 ( likley secondary to outpatient Bactrim). Qualifiers: Atrial fibrillation type: chronic Qualified Code(s): I48.2 - Chronic atrial fibrillation (3) UTI (urinary tract infection) Current Visit: Yes Status: Acute Assessment and plan: dx per PCP and was started on Bactrim. ATB changed to Cipro due to worsening function. Qualifiers: Urinary tract infection type: site unspecified Hematuria presence: without hematuria Qualified Code(s): N39.0 - Urinary tract infection, site not specified (4) CAD (coronary artery disease) Current Visit: Yes Status: Chronic Assessment and plan: per hx. With intermittent chest pain. Had positive 11/2016 outpatient stress test ; declined [facility] at that time. Serial troponin peaked at 0.07. TTE with EF 50%, no WMA. Cont home ASA, BB, statin. Cardiology following Qualifiers: Coronary Disease-Associated Artery/Lesion type: unspecified vessel or lesion type [place] vs. transplanted heart: [place] heart Associated angina: angina presence unspecified Qualified Code(s): I25.10 - Atherosclerotic heart disease of [place] coronary artery without angina pectoris (5) HTN (hypertension) Current Visit: Yes Status: Chronic Assessment and plan: per hx. BP controlled. Cont home BP medication regimen. Monitor BP and titrate PRN Qualifiers: Hypertension type: essential hypertension Qualified Code(s): I10 - Essential (primary) hypertension (6) Diabetes Current Visit: Yes Status: Acute Assessment and plan: per hx. Holding home oral hypoglycemics. SSI. Monitor blood sugar and titrate PRN Qualifiers: Diabetes mellitus type: type 2 Diabetes mellitus complication status: with unspecified complications Diabetes mellitus longterm insulin use: without manager long term care use Qualified Code(s): E11.8 - Type 2 diabetes mellitus with unspecified complications (7) TASH (acute kidney injury) Current Visit: Yes Status: Acute Assessment and plan: Cr peaked at 1.3; baseline normal. Secondary to IV lasix. Monitor repeat renal function (8) DVT prophylaxis Current Visit: Yes Status: Acute Assessment and plan: coumadin - Time Spent With Patient 25 - 35 minutes - Subjective Interval history: Seen and examined at bedside. Patient is new to me. Information obtained from chart review and patient report. Patient says she feels overall better, still with some shortness of breath that is worse with exertion. She is having intermittent chest pain as well. Discussed with daughter and patient at bedside and both are agreeable to cardiology consultation and left heart catheter as well as recommended. - Constitutional Vitals: Temp Pulse Resp BP Pulse Ox 97.9 F 80 16 98/63 99 10/24/17 07:26 10/24/17 07:26 10/24/17 07:26 10/24/17 07:26 10/24/17 07:26 General appearance: Present: cooperative, morbidly obese, pleasant, no acute distress, obese, answers questions appropriately - Head Head exam: Present: atraumatic, normocephalic - Eye Eye exam: Present: PERRL, conjuntiva pink, sclera anicteric Pupils: Present: PERRL - Neck Neck exam general surgery: Present: supple, trachea midline. Absent: lymphadenopathy - Respiratory Respiratory exam: Present: CTAB. Absent: accessory muscle use, rales, rhonchi, wheezes - Cardiovascular Cardiovascular exam: Present: RRR, +S1, +S2. Absent: diastolic murmur, gallop, rubs, systolic murmur - GI/Abdominal GI/Abdominal exam: Present: normal bowel sounds, soft, no peritoneal signs. Absent: distended, tenderness Additional comments: Obese - Extremities Exam Extremities exam: Present: warm, radial pulses palpable and symmetrical. Absent : calf tenderness, cyanotic, pedal edema - Neurological Exam Neurological exam: Present: CN II-XII intact, oriented X3, no focal deficits. Absent: pronater drift, facial droop, speech deficit Additional comments: Alert and oriented but forgetful. - Skin Skin exam: Present: dry, intact Internal Medicine: Result - Labs CBC & Chem 7: 10/24/17 00:34 10/24/17 00:34 - ABG Interpretation ABG results: PT/INR, D-dimer PT 31.9 Seconds (9.4-12.1) H 10/24/17 09:07 Consult Discharge Plan - Plan Referrals: Virginia Diaz, STEAM TABLE ATTENDANT [Primary Care Provider] -
--- NOTE | 2017-10-24 14:12 | Electrocardiograph Report ---
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
--- NOTE | 2017-10-24 14:15 | Electrocardiograph Report ---
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
[2017-10-24] MEDS ORDERED: Warfarin perPT PO PRN (18:00)
[2017-10-24] MEDS ORDERED: *HR* Warfarin 2 MG TABLET PO ONE (18:00)
[2017-10-25 05:06] LABS: Basophils % 0.5 %; Eosinophils # 0.1 K/mcL (0.0-0.6); Eosinophils % 1.6 %; Hematocrit 36.9 % (35.3-44.9); Hemoglobin 11.8 g/dL (11.5-15.4); Immature Granulocytes % 0.7 % (0-4); Lymphocytes % 25.9 %; Mean Corpuscular Hemoglobin 29.8 pg (28.0-33.3); Mean Corpuscular Volume 93.2 fL (83.0-100.0); Mean Platelet Volume 9.6 fL (9.4-12.4); Monocytes # 0.8 K/mcL (0.0-1.3); Monocytes % 9.9 %; Neutrophils # 4.7 K/mcL (1.6-8.9); Platelet Count 183 K/mcL (140-400); Red Blood Count 3.96 M/mcL (3.82-4.97); Red Cell Distribution Width 13.1 % (11.5-14.5); Segmented Neutrophils % 61.4 %
[2017-10-25 05:14] LABS: INR 2.3; Prothrombin Time 24.7 Seconds (9.4-12.1)
[2017-10-25 05:19] LABS: Albumin/Globulin Ratio 0.9 (1.1-2.2); Bilirubin,Total 0.8 mg/dL (0.2-1.2); Calcium 8.5 mg/dL (8.6-10.8); Globulin 3.2 g/dL (2.4-3.5); Potassium 3.8 mEq/L (3.5-4.5); Total Protein 6.2 g/dL (6.0-8.3)
[2017-10-25] MEDS: Aspirin Enteric Coated 81 MG Tablet PO SCH (08:32)
[2017-10-25] MEDS: Lactobacillus 1 EACH CAP.SPRINK PO SCH (08:33)
[2017-10-25] MEDS: Furosemide 40 MG/4 ML VIAL IVP SCH (08:33)
[2017-10-25] MEDS: Gabapentin 100 MG CAPSULE PO SCH (08:33)
[2017-10-25] MEDS: Insulin LISPRO 300 UNITS/3 ML VIAL SQ SCH (08:47)
--- NOTE | 2017-10-25 10:00 | Cardiology Progress Note ---
Date of Encounter: 10/25/17 Time of Encounter: 08:30 Assessment and Plan (1) Acute exacerbation of CHF (congestive heart failure) Current Visit: Yes Status: Acute Per cardiology: -Known history of CHF. -presented with increased shortness of breath. -Patient reports has noticed increased abdominal girth and increased weights. -Reports missed lasix doses. -CHest x-ray with CHF and mild pulmonary edema. -On lasix 40mg IV BID. -Net negative 3000ml. -States feels much better today. -CHF education reinforced with patient. Patient states she has not been weighing herself daily and has missed lasix. -Strict i/os, daily weights, fluid restriction. -will switch lasix back to po. -Anticipate cardiology sign off. Qualifiers: Congestive heart failure type: unspecified congestive heart failure type Qualified Code(s): I50.9 - Heart failure, unspecified (2) Chest pain Current Visit: Yes Status: Acute Per cardiology: -Had one episode of chest pain a rest. -States pain was worse with deep inspiration. -Denies exertional symptoms. -Denies current chest pain. -TTE with LEVF 50%, no segmental wall motion abnormalities. Previous TTE with LVEF 50-55%. (3) Atrial fibrillation Current Visit: Yes Status: Chronic Per cardiology: -Known atrial fibrillation. 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 -Rate controlled on beta blcoker. -Will continue to monitor in outpatient setting. Qualifiers: Atrial fibrillation type: chronic Qualified Code(s): I48.2 - Chronic atrial fibrillation (4) CAD (coronary artery disease) Current Visit: Yes Status: Chronic Per cardiology: -Know CAD with CABG 1992. -Denies current chest pain, had episode of chest pain prior to arrival. -Nuc stress 2012 with small sized reversible perfusion defect, moderate in severity in the mid-anterior segment wall. Also mixed perfusion defect in the anterolateral wall suggestive of ischemia in addition to probable breast attenuation artifact. -Nuc stress 11/2016 with medium sized, moderate intensity , predominately reversible perfusion defect in the mid-apical anterior wall and apex. -TTE 07/2017 with LVEF 50-55%. -TTE this admission with LVEF 50%, no segmental wall motion abnormalities. -On asa, statin, beta blokcer, ARB. -Of note, patient states she does not take ASA at home due to increased bruising with her coumadin. Will stop ASA. -Disucussed testing results with patient and family. At this time, patient and family wish to follow up with in outpatient setting to further discuss if she would like to proceed with [facility]. Qualifiers: Coronary Disease-Associated Artery/Lesion type: unspecified vessel or lesion type [place] vs. transplanted heart: [place] heart Associated angina: angina presence unspecified Qualified Code(s): I25.10 - Atherosclerotic heart disease of [place] coronary artery without angina pectoris (5) TASH (acute kidney injury) Current Visit: Yes Status: Acute Per cardiology: -Creatinine today 1.17, improved from 1.35. -Baseline 0.7-0.8. -Management per primary service. (6) Elevated troponin Current Visit: Yes Status: Acute Per cardiology: -Troponin 0.5, 0.06, 0.07 in the setting of CHF, TASH. -Denies current chest pain, however had chest pain prior to arrival. -ECG with no acute ischemic changes. -TTE with LVEF 50%, no segmental wall motion abnormalities. -DO not suspect NSTEMI, suspect demand ischemia related to above. NO cardiac rehab warranted at this time. Discussion w patient/family: The assessment and plan as outlined above was discussed with the patient and/or family members who expressed understanding and agreement. All questions were answered. Thank you for involving us in the care of your patient. Please call with any questions. Discussed and reviewed with . Subjective Principal diagnosis: CHF Interval history: Patient states she feels better today. Denies chest pain. States breathing improved. Daughter states patient walked to the bathroom without O2 and tolerated well. Objective Vital Signs, Last 4 Hours Temp Pulse Resp BP Pulse Ox 10/25/17 07:10 98.7 F 71 17 140/79 98 General: Conversant, No Apparent Distress HEENT: Atraumatic, Normocephaly, Mucus Membranes Moist Neck: No JVD, Normal carotid pulses Cardiac: Normal S1 and S2, No Murmur, Other (Irregularly irregular) Lungs: Normal Breath Sounds, No Wheeze, Rales, Rhonchi Neuro: Alert and responsive, No focal deficits noted Abdomen: Soft, Non-Tender Skin: No rashes noted on visualized skin Musculoskeletal: No Chest Wall Tenderness Extremities: No Clubbing, No Cyanosis, No Edema, Normal Pulses Results 10/25/17 04:17 10/25/17 04:17 Lab Results Impressions Echocardiogram Limited Views 10/24/17 10:25 Impressions: LVEF 50%. Mild concentric left ventricular hypertrophy. Normal right ventricular structure with low normal function. Left Ventricular Wall Motion: Rest Echo Findings All wall segments showed normal motion. Findings: Study Quality * Technically adequate exam. ECG Findings * Normal sinus rhythm. Left Ventricle * LVEF 50%. * Mild concentric left ventricular hypertrophy. Right Ventricle * Normal right ventricular structure with low normal function. Aorta * Not well visualized. IVC * The IVC is not dilated. Active Medications Acetaminophen (Tylenol) 650 mg PO Q6HR PRN PRN Reason: Mild Pain (1-3) Stop: 04/24/18 18:08 Hydrocodone Bitart/Acetaminophen ([place] 7.5-325 Mg) 1 tab PO TID PRN PRN Reason: Moderate Pain Stop: 04/24/18 18:14 Last Admin: 10/24/17 22:32 Dose: 1 tab Aspirin (Aspirin Ec) 81 mg PO DAILY RADHA Stop: 04/25/18 09:01 Last Admin: 10/25/17 08:32 Dose: Not Given Ciprofloxacin HCl (Cipro) 500 mg PO BID RADHA Stop: 04/25/18 21:01 Last Admin: 10/25/17 08:32 Dose: 500 mg Citalopram Hydrobromide (Celexa) 20 mg PO DAILY RADHA Stop: 04/25/18 09:01 Last Admin: 10/25/17 08:32 Dose: 20 mg Dextrose/Water (Dextrose 50% (Syg)) 25 ml IVP AD PRN PRN Reason: Hypoglycemia Stop: 04/24/18 18:18 Ferrous Sulfate (Ferrous Sulfate) 325 mg PO BIDWM RADHA Stop: 04/24/18 21:01 Last Admin: 10/25/17 08:32 Dose: 325 mg Furosemide (Lasix) 40 mg IVP BIDDIURETIC RADHA Stop: 04/24/18 21:01 Last Admin: 10/25/17 08:33 Dose: 40 mg Gabapentin (Neurontin) 100 mg PO BID RADHA Stop: 04/24/18 21:01 Last Admin: 10/25/17 08:33 Dose: 100 mg Glucagon (Glucagen) 1 mg IM ONCE PRN PRN Reason: Hypoglycemia Stop: 04/24/18 18:18 Glucose (Gluctose) 15 gm PO ONCE PRN PRN Reason: Hypoglycemia Stop: 04/24/18 18:18 Glucose (Gluctose) 30 gm PO ONCE PRN PRN Reason: Hypoglycemia Stop: 04/24/18 18:18 Dextrose (Dextrose 5%) 1,000 mls @ 100 mls/hr IVC .Q10H PRN PRN Reason: HYPOGLYCEMIA Stop: 04/24/18 18:18 Insulin Human Lispro (Humalog) 0 units SQ TIDAC RADHA PRN Reason: Protocol Stop: 04/25/18 07:31 Last Admin: 10/25/17 08:47 Dose: Not Given Insulin Human Lispro (Humalog) 0 units SQ HS [facility] PRN Reason: Protocol Stop: 04/24/18 21:01 Last Admin: 10/24/17 21:37 Dose: Not Given Lactobacillus Acidophilus/Rhamnosus (Culturelle) 1 each PO BID [facility] Stop: 04/24/18 21:01 Last Admin: 10/25/17 08:33 Dose: 1 each Losartan Potassium (Cozaar) 25 mg PO DAILY RADHA PRN Reason: Protocol Stop: 04/25/18 09:01 Last Admin: 10/24/17 08:05 Dose: 25 mg Metoprolol Tartrate (Lopressor) 25 mg PO DAILY [facility] Stop: 04/25/18 09:01 Last Admin: 10/25/17 08:33 Dose: 25 mg Naloxone HCl (Narcan) 0.4 mg IVP Q2MIN PRN PRN Reason: Opioid Reversal Stop: 04/24/18 18:08 Nitroglycerin (Nitroglycerin) 0.4 mg SL Q5MIN PRN PRN Reason: Chest Pain Stop: 04/24/18 12:24 Omeprazole (Prilosec) 40 mg PO DAILY [facility] Stop: 04/25/18 09:01 Last Admin: 10/25/17 08:32 Dose: 40 mg Ondansetron HCl (Zofran) 4 mg IVP Q8HR PRN PRN Reason: Nausea And Vomiting Stop: 04/24/18 18:08 Potassium Chloride (Potassium Chloride) 20 meq PO DAILY [facility] Stop: 04/25/18 09:01 Last Admin: 10/24/17 08:05 Dose: 20 meq Simvastatin (Zocor) 20 mg PO HS [facility] PRN Reason: Protocol Stop: 04/25/18 21:01 Last Admin: 10/24/17 21:36 Dose: 20 mg Warfarin Sodium (Coumadin Perpt) 1 each PO DAILY@1800 PRN PRN Reason: SEE COMMENTS Stop: 04/25/18 18:01 Warfarin Sodium (Coumadin) 2.5 mg PO 1800 ONE Stop: 10/25/17 18:01 Laboratory Tests 10/23/17 10/24/17 10/25/17 12:16 00:34 04:17 Hgb 11.8 INR Creatinine 1.03 1.35 H 10/25/17 10/25/17 04:17 04:17 Hgb INR 2.3 Creatinine 1.17 H - Imaging and Cardiology Chest Xray: report reviewed Stress Test: report reviewed Echo: report reviewed - EKG Interpretation EKG results cardiology: other (Telemetry reviewed with average HR previous 12 hours noted to be 70, atrial fibrillation. PVCs noted.) Consult Discharge Plan - Plan Referrals: Virginia Diaz, STRAIGHTENING PRESS OPERATOR [Primary Care Provider] - 11/02/17 11:00 am
[2017-10-25 11:15] VITALS: BP 131/83
--- NOTE | 2017-10-25 11:22 | Discharge Summary ---
Date of Encounter: 10/25/17 Time of Encounter: 11:13 - Discharge Diagnosis (1) Acute exacerbation of CHF (congestive heart failure) Priority: Primary Status: Acute Comments: Acute on chronic diastolic CHF exacerbation. Known hx CHF, on lasix at home. Symptomatic with crackles and lower extremity edema. BNP of 148. CXR with CHF and mild pulmonary edema. 10/24/17 TTE EF 50%, mild diastolic dysfunction. Likely secondary to medication compliance (patient missed 3 days lasix). Sx's improved with IV lasix; net negative 3000ml. Evaluated by Cardiology who recommended continuing home lasix. CHF education reinforced with patient. Follow -up with primary Solar Mechanical Engineer Qualifiers: Congestive heart failure type: diastolic Qualified Code(s): I50.33 - Acute on chronic diastolic (congestive) heart failure (2) Atrial fibrillation Priority: Primary Status: Chronic Comments: per hx. Rate controlled. INR 3.5 on arrival; likely secondary to outpatient Bactrim. INR 2.3 on day of discharge. Cont home coumadin, BB. Resume INR checks per [facility] as previously scheduled Qualifiers: Atrial fibrillation type: chronic Qualified Code(s): I48.2 - Chronic atrial fibrillation (3) UTI (urinary tract infection) Priority: Primary Status: Acute Comments: treated with bactrim for UTI per PCP. ATB switched to Cipro due to renal function and coumadin interaction. Completed 7 days of ATB Qualifiers: Urinary tract infection type: site unspecified Hematuria presence: without hematuria Qualified Code(s): N39.0 - Urinary tract infection, site not specified (4) CAD (coronary artery disease) Priority: Primary Status: Chronic Comments: per hx. 11/2016 outpatient stress test with medium size, moderate intensity reversible defect; declined LHC at that time. Now with intermittent chest pain. Serial troponin peaked at 0.07. TTE with EF 50%, no WMA. LHC versus medical management and patient/daughter would likle to cont medical management at this time, will address abnormal stress with primary Solar Mechanical Engineer outpatient. Cont home ASA, BB, statin. Qualifiers: Coronary Disease-Associated Artery/Lesion type: unspecified vessel or lesion type [place] vs. transplanted heart: [place] heart Associated angina: angina presence unspecified Qualified Code(s): I25.10 - Atherosclerotic heart disease of [place] coronary artery without angina pectoris (5) HTN (hypertension) Priority: Primary Status: Chronic Comments: per hx. BP controlled. Cont home BP medication regimen. Qualifiers: Hypertension type: essential hypertension Qualified Code(s): I10 - Essential (primary) hypertension (6) Diabetes Priority: Primary Status: Acute Comments: per hx. Cont home diabetes regimen. Qualifiers: Diabetes mellitus type: type 2 Diabetes mellitus complication status: with unspecified complications Diabetes mellitus technical solutions director insulin use: without technical solutions director use Qualified Code(s): E11.8 - Type 2 diabetes mellitus with unspecified complications (7) TASH (acute kidney injury) Priority: Primary Status: Acute Comments: Cr peaked at 1.3; baseline normal. Secondary to IV lasix. Repeat Cr 1.17. Recommend repeat CMP with PCP within 5-7 days - Discharge Medications Home Medications: Citalopram [CeleXA] 20 mg PO DAILY 10/23/17 [History] Ferrous Sulfate [Iron] 325 mg PO BID 10/23/17 [History] Furosemide [Lasix] 40 mg PO DAILY 10/23/17 [History] Gabapentin [Neurontin] 100 mg PO BID 10/23/17 [History] Glimepiride [Amaryl] 2 mg PO DAILY 10/23/17 [History] HYDROcodone/Acet 7.5/325 mg [[place] 7.5-325 mg] 1 tab PO TID PRN 10/23/17 [ History] Losartan [Cozaar] 25 mg PO DAILY 10/23/17 [History] Metoprolol [Lopressor] 25 mg PO DAILY 10/23/17 [History] Nitroglycerin [Nitrostat] 0.4 mg SL Q5M PRN 10/23/17 [History] Omeprazole [PriLOSEC] 40 mg PO DAILY 10/23/17 [History] Potassium Chloride [K-Tab ER] 20 meq PO DAILY 10/23/17 [History] Simvastatin [Zocor] 20 mg PO DAILY 10/23/17 [History] Warfarin [Coumadin] 2.5 mg PO DAILY #0 10/25/17 [Rx] Allergies/Adverse Reactions: 3 Allergy/AdvReac Type Severity Reaction Status Date / Time Penicillins AdvReac Anaphylaxis Verified 01/26/17 16:43 Procedures/tests Complete & Pending: Procedures Performed prior 72 hours Category Date Time Status EV limited echocardiogram Routine Y 12/12/17 10:25 Completed Date of admission: 10/24/17 05:12 Primary care physician: Virginia Diaz CNP Consults: 10/24/17 08:29 Consult to Cardiology [CONS] Routine Comment: Consulting Provider: Cardiology Jenna Reason for Consult: elevated troponin, chest pain Call Completed: Yes Discharging clinician: Fani Reyes Anticipated date of discharge: 10/25/17 - Patient Status Disposition: Home Health Service Condition: Good Functional capacity at discharge: uses cane/walker Overall status at discharge: patient is back to baseline - Discharge Instructions Instructions: Furosemide (By mouth), Heart Failure (DC), Coronary Artery Disease (DC) Follow Up With: Virginia Diaz CNP [Primary Care Provider] - 11/02/17 11:00 am - Diet and Activity Activity: ambulate only with your walker, increase activity as tolerated, resume usual activities as tolerated Diet: diabetic diet, low fat, low cholesterol Hospital course: See assessment and plan for hospital course - Time Spent with Patient Total time spent providing and/or coordinating discharge services: - Constitutional Vitals: Temp Pulse Resp BP Pulse Ox 98.7 F 71 17 140/79 98 10/25/17 07:10 10/25/17 07:10 10/25/17 07:10 10/25/17 07:10 10/25/17 07:10 General appearance: Present: cooperative, morbidly obese, pleasant, no acute distress, obese, answers questions appropriately
--- NOTE | 2017-10-25 15:14 | Physician Discharge Referral ---
Home Health/Hosp Referral Info Transfer to: Home Health Attending Provider: Fani Reyes CNP Provider in Charge Post Discharge: PCP - Diagnosis (1) Acute exacerbation of CHF (congestive heart failure) Status: Acute (2) Atrial fibrillation Status: Chronic (3) UTI (urinary tract infection) Status: Acute (4) CAD (coronary artery disease) Status: Chronic (5) HTN (hypertension) Status: Chronic (6) Diabetes Status: Acute (7) TASH (acute kidney injury) Status: Acute - Respiratory Orders Oxygen / L per min (2) Smoking Cessation: Smoking cessation has been advised. For more information, call the [place] Tobacco Quit Line at 9-214-TYFG-NOW. - Diet/Nutrition Diet/Nutrition Orders: Cardiac, No Concentrated Sweets - Activity Activity Orders: Walker - Services Needed Following services are medically necessary services: Nursing, Home Health Aide, Physical Therapy, Occupational Therapy - Transfer Medications Home Medications: Citalopram [CeleXA] 20 mg PO DAILY 10/23/17 [History] Ferrous Sulfate [Iron] 325 mg PO BID 10/23/17 [History] Furosemide [Lasix] 40 mg PO DAILY 10/23/17 [History] Gabapentin [Neurontin] 100 mg PO BID 10/23/17 [History] Glimepiride [Amaryl] 2 mg PO DAILY 10/23/17 [History] HYDROcodone/Acet 7.5/325 mg [[place] 7.5-325 mg] 1 tab PO TID PRN 10/23/17 [ History] Losartan [Cozaar] 25 mg PO DAILY 10/23/17 [History] Metoprolol [Lopressor] 25 mg PO DAILY 10/23/17 [History] Nitroglycerin [Nitrostat] 0.4 mg SL Q5M PRN 10/23/17 [History] Omeprazole [PriLOSEC] 40 mg PO DAILY 10/23/17 [History] Potassium Chloride [K-Tab ER] 20 meq PO DAILY 10/23/17 [History] Simvastatin [Zocor] 20 mg PO DAILY 10/23/17 [History] Warfarin [Coumadin] 2.5 mg PO DAILY #0 10/25/17 [Rx] Allergies/Adverse Reactions: 3 Allergy/AdvReac Type Severity Reaction Status Date / Time Penicillins AdvReac Anaphylaxis Verified 01/26/17 16:43 Certification: Further, I certify that my clinical findings support that this patient is homebound (i.e. absences from home require considerable and taxing effort and are for medical reasons or christian services or infrequently or short duration when for other reasons) because: Homebound Reason: Patient requires assistance of a person or device to safely leave home Attestation: My signature below is to certify that this patient is under my care and that I, or nurse practitioner, or a physician's lens assistant working with me, has a face-to -face encounter with this patient.
[2017-10-25] MEDS ORDERED: *HR* Warfarin 2.5 MG TABLET PO ONE (18:00)
[2017-10-26] MEDS ORDERED: Furosemide 40 MG TABLET PO SCH (09:00)
== END 2017-10-25 15:11 | disposition home health service (06) ==
LOC: 3BNU 11:25 → EMEROO 11:25 → 3BNU 15:33
PROVIDERS: ADMIT Hospitalist; ATTEND Registered Nurse

== ENCOUNTER 2018-01-29 13:38 | Observation (INO) ==
[2018-01-29] MEDS ORDERED: Furosemide 40 MG/4 ML VIAL IVP ONE (13:58)
--- NOTE | 2018-01-29 14:00 | Emergency Department Note ---
Disposition Clinical Impression: Acute exacerbation of CHF (congestive heart failure) Disposition: Admitted As Inpatient Condition: Fair General Adult HPI - General Chief complaint: ED Shortness of Breath/Dyspnea Stated complaint: JOHN/COPD weight gain Time Seen by Provider: 01/29/18 13:43 Source: EMS Limitations: no limitations - History of Present Illness Pain Scale: 0 - Related Data Home Medications Medication Instructions Recorded Confirmed Ferrous Sulfate [Iron] 325 mg PO BID 10/23/17 01/29/18 Furosemide [Lasix] 40 mg PO DAILY 10/23/17 01/29/18 Gabapentin [Neurontin] 100 mg PO BID 10/23/17 01/29/18 Glimepiride [Amaryl] 2 mg PO DAILY 10/23/17 01/29/18 HYDROcodone/Acet 7.5/325 mg [[place] 0.5 tab PO TID PRN 10/23/17 01/29/18 7.5-325 mg] Losartan [Cozaar] 25 mg PO DAILY 10/23/17 01/29/18 Metoprolol [Lopressor] 25 mg PO DAILY 10/23/17 01/29/18 Nitroglycerin [Nitrostat] 0.4 mg SL Q5M PRN 10/23/17 01/29/18 Omeprazole [PriLOSEC] 40 mg PO DAILY 10/23/17 01/29/18 Potassium Chloride [K-Tab ER] 20 meq PO DAILY 10/23/17 01/29/18 Simvastatin [Zocor] 20 mg PO HS 10/23/17 01/29/18 ALPRAZolam [Xanax 0.5 MG Tablet] 0.5 mg PO TID PRN 01/29/18 01/29/18 Albuterol Neb [Proventil Neb] 2.5 mg IH TID PRN 01/29/18 01/29/18 Albuterol Sulfate [Proair Hfa] 2 puff IH Q4H PRN 01/29/18 01/29/18 Calcium Carbonate [Calcium] 500 mg PO BID 01/29/18 01/29/18 Cholecalciferol (D-3) [Vitamin D] 2,000 unit PO DAILY 01/29/18 01/29/18 Citalopram Hydrobromide 40 mg PO DAILY 01/29/18 01/29/18 [Citalopram HBr] Multivitamin [One Daily 1 each PO DAILY 01/29/18 01/29/18 Multivitamin] Oxybutynin Chloride [Ditropan Xl] 10 mg PO DAILY 01/29/18 01/29/18 Oxygen 2 l NS HS 01/29/18 01/29/18 Warfarin [Coumadin] 2.5 mg PO [id number] 01/29/18 01/29/18 Warfarin [Coumadin] 5 mg PO MO 01/29/18 01/29/18 Allergies Allergy/AdvReac Type Severity Reaction Status Date / Time Penicillins AdvReac Anaphylaxis Verified 01/26/17 16:43 Past Medical History - Past Medical History Medical history: Reports: arthritis, asthma, atrial fibrillation, CHF, coronary artery disease, CVA, diabetes, GERD, hyperlipidemia, hypertension, myocardial infarction, TIA, other Surgical history: Reports: coronary bypass (CABG), hysterectomy (Partial) Psychiatric history: Reports: no psych history 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 - Social History Smoking Status: Never smoker Smokeless Tobacco Status: No Alcohol use: Reports: none Drug use: Reports: none Physical Exam - General Limitations: no limitations General appearance: alert Course Vital Signs Temperature 98.4 F 01/29/18 13:40 Pulse Rate 61 01/29/18 13:40 Respiratory Rate 14 01/29/18 13:40 Blood Pressure 107/49 01/29/18 13:40 O2 Sat by Pulse Oximetry 97 01/29/18 13:40 Temperature 98.6 F 01/31/18 11:29 Pulse Rate 70 01/31/18 11:29 Respiratory Rate 16 01/31/18 11:29 Blood Pressure 118/79 01/31/18 11:29 O2 Sat by Pulse Oximetry 98 01/31/18 11:29 Oxygen Delivery Oxygen Delivery Room Air Medical Decision Making - Lab Data Result diagrams: 01/31/18 04:26 01/31/18 04:26 Lab Results 01/29/18 01/29/18 01/29/18 Range/Units 14:27 14:27 14:27 WBC 7.4 (4.3-11.1) K/mcL RBC 4.06 (3.82-4.97) M/mcL Hgb 11.9 (11.5-15.4) g/dL Hct 37.4 (35.3-44.9) % MCV 92.1 (83.0-100.0) fL MCH 29.3 (28.0-33.3) pg MCHC 31.8 (31.6-35.5) g/dL RDW 13.2 (11.5-14.5) % Plt Count 175 (140-400) K/mcL MPV 9.7 (9.4-12.4) fL Immature Gran % 0.5 (0-4) % Seg Neutrophils % 74.1 % Lymphocytes % 16.0 % Monocytes % 8.1 % Eosinophils % 0.9 % Basophils % 0.4 % Neutrophils # 5.5 (1.6-8.9) K/mcL Lymphocytes # 1.2 (0.6-4.6) K/mcL Monocytes # 0.6 (0.0-1.3) K/mcL Eosinophils # 0.1 (0.0-0.6) K/mcL Basophils # 0.0 (0.0-0.2) K/mcL Nucleated RBCs/100 WBC 0.3 H (0) /100 WBC PT 23.7 H (9.4-12.1) Seconds INR 2.2 Sodium 138 (136-145) mEq/L Potassium 4.0 (3.5-5.1) mEq/L Chloride 103 (98-107) mEq/L Carbon Dioxide 29 (23-29) mEq/L BUN 14 (8-23) mg/dL Creatinine 0.75 (0.60-1.20) mg/dL Est GFR ( Amer) > 60 (> 60) Est GFR (Non-Af Amer) > 60 (> 60) BUN/Creatinine Ratio 19 (6-26) Glucose 194 H (70-105) mg/dL Calculated Osmolality 292 (280-300) Lactic Acid (0.5-2.2) mmol/L Calcium 8.8 (8.6-10.3) mg/dL Total Bilirubin 0.6 (0.3-1.0) mg/dL Direct Bilirubin 0.1 (0.0-0.2) mg/dL Indirect Bilirubin 0.5 (0.0-1.2) mg/dL AST 15 (13-39) Units/L ALT 15 (7-52) Units/L Alkaline Phosphatase 73 (34-104) Units/L Troponin I < 0.03 (< 0.04) ng/mL B-Natriuretic Peptide (Less than 100) pg/mL Serum Total Protein 5.8 L (6.4-8.9) g/dL Albumin 3.6 (3.5-5.7) g/dL Globulin 2.2 L (2.4-3.5) g/dL Albumin/Globulin Ratio 1.6 (1.1-2.2) 01/29/18 01/29/18 Range/Units 14:27 14:27 WBC (4.3-11.1) K/mcL RBC (3.82-4.97) M/mcL Hgb (11.5-15.4) g/dL Hct (35.3-44.9) % MCV (83.0-100.0) fL MCH (28.0-33.3) pg MCHC (31.6-35.5) g/dL RDW (11.5-14.5) % Plt Count (140-400) K/mcL MPV (9.4-12.4) fL Immature Gran % (0-4) % Seg Neutrophils % % Lymphocytes % % Monocytes % % Eosinophils % % Basophils % % Neutrophils # (1.6-8.9) K/mcL Lymphocytes # (0.6-4.6) K/mcL Monocytes # (0.0-1.3) K/mcL Eosinophils # (0.0-0.6) K/mcL Basophils # (0.0-0.2) K/mcL Nucleated RBCs/100 WBC (0) /100 WBC PT (9.4-12.1) Seconds INR Sodium (136-145) mEq/L Potassium (3.5-5.1) mEq/L Chloride (98-107) mEq/L Carbon Dioxide (23-29) mEq/L BUN (8-23) mg/dL Creatinine (0.60-1.20) mg/dL Est GFR ( Amer) (> 60) Est GFR (Non-Af Amer) (> 60) BUN/Creatinine Ratio (6-26) Glucose (70-105) mg/dL Calculated Osmolality (280-300) Lactic Acid 1.4 (0.5-2.2) mmol/L Calcium (8.6-10.3) mg/dL Total Bilirubin (0.3-1.0) mg/dL Direct Bilirubin (0.0-0.2) mg/dL Indirect Bilirubin (0.0-1.2) mg/dL AST (13-39) Units/L ALT (7-52) Units/L Alkaline Phosphatase (34-104) Units/L Troponin I (< 0.04) ng/mL B-Natriuretic Peptide 166 H (Less than 100) pg/mL Serum Total Protein (6.4-8.9) g/dL Albumin (3.5-5.7) g/dL Globulin (2.4-3.5) g/dL Albumin/Globulin Ratio (1.1-2.2) Attestation Statement - Attestation Attestation: I examined this patient and my medical decision-making was reviewed with the Resident Physician. I agree with the documented findings, disposition and treatment plan as described except to the extent set forth below. [id number] time provided Patient arrives complaining of dyspnea and water weight gain. She has a known history of CHF. She appears in no acute distress on exam. Patient seen in conjunction with resident physician
[2018-01-29 14:43] LABS: Basophils % 0.4 %; Eosinophils # 0.1 K/mcL (0.0-0.6); Eosinophils % 0.9 %; Hematocrit 37.4 % (35.3-44.9); Hemoglobin 11.9 g/dL (11.5-15.4); Immature Granulocytes % 0.5 % (0-4); Lymphocytes # 1.2 K/mcL (0.6-4.6); Mean Corpuscular HGB Conc 31.8 g/dL (31.6-35.5); Mean Corpuscular Hemoglobin 29.3 pg (28.0-33.3); Mean Corpuscular Volume 92.1 fL (83.0-100.0); Mean Platelet Volume 9.7 fL (9.4-12.4); Monocytes # 0.6 K/mcL (0.0-1.3); Monocytes % 8.1 %; Neutrophils # 5.5 K/mcL (1.6-8.9); Nucleated Red Blood Cells 0.3 /100 WBC (0); Platelet Count 175 K/mcL (140-400); Red Blood Count 4.06 M/mcL (3.82-4.97); Red Cell Distribution Width 13.2 % (11.5-14.5); Segmented Neutrophils % 74.1 %
[2018-01-29 14:48] LABS: INR 2.2; Prothrombin Time 23.7 Seconds (9.4-12.1)
[2018-01-29 15:06] LABS: Troponin I < 0.03 ng/mL (< 0.04)
[2018-01-29 15:07] LABS: Alanine Aminotransferase 15 Units/L (7-52); Albumin 3.6 g/dL (3.5-5.7); Albumin/Globulin Ratio 1.6 (1.1-2.2); Alkaline Phosphatase 73 Units/L (34-104); Aspartate Amino Transferase 15 Units/L (13-39); BUN/Creatinine Ratio 19 (6-26); Bilirubin,Direct 0.1 mg/dL (0.0-0.2); Bilirubin,Indirect 0.5 mg/dL (0.0-1.2); Bilirubin,Total 0.6 mg/dL (0.3-1.0); Blood Urea Nitrogen 14 mg/dL (8-23); Calcium 8.8 mg/dL (8.6-10.3); Carbon Dioxide 29 mEq/L (23-29); Chloride 103 mEq/L (98-107); Globulin 2.2 g/dL (2.4-3.5); Glucose 194 mg/dL (70-105); Osmolality,Calculated 292 (280-300); Sodium 138 mEq/L (136-145); Total Protein 5.8 g/dL (6.4-8.9); eGFR For African Americans > 60 (> 60); eGFR For Non-African Americans > 60 (> 60)
--- NOTE | 2018-01-29 15:13 | Emergency Department Note ---
Disposition Clinical Impression: Acute exacerbation of CHF (congestive heart failure) Qualifiers: Heart failure type: unspecified Qualified Code(s): I50.9 - Heart failure, unspecified Disposition: Admitted As Inpatient Condition: Fair Referrals: Virginia Diaz CNP [Primary Care Provider] - Forms: ED Satisfaction Letter Time of Disposition: 15:39 SOB HPI - General Chief Complaint: ED Shortness of Breath/Dyspnea Stated Complaint: JOHN/COPD weight gain Time Seen by Provider: 01/29/18 13:43 Source: EMS Limitations: no limitations Vital Signs Reviewed: Yes - History of Present Illness Leticia Diaz is an 87 year old female with history of CHF and COPD presenting with shortness of breath on minimal exertion. She has had a weight gain of approximately 15 lbs in the last 3 days, and she notes increased abdominal distention in that time as well. Home pulse ox has been approximately 90 at rest. She had an echo in October during her last exacerbation which showed an EF of 50% She is prescribed home O2 at night. She denies chest pain, palpitations, diaphoresis, nausea, vomiting, headache, fever, and chills. - Related Data Home Medications Medication Instructions Recorded Confirmed Ferrous Sulfate [Iron] 325 mg PO BID 10/23/17 10/23/17 Furosemide [Lasix] 40 mg PO DAILY 10/23/17 10/23/17 Gabapentin [Neurontin] 100 mg PO BID 10/23/17 10/23/17 Glimepiride [Amaryl] 2 mg PO DAILY 10/23/17 10/23/17 HYDROcodone/Acet 7.5/325 mg [[place] 1 tab PO TID PRN 10/23/17 10/23/17 7.5-325 mg] Losartan [Cozaar] 25 mg PO DAILY 10/23/17 10/23/17 Metoprolol [Lopressor] 25 mg PO DAILY 10/23/17 10/23/17 Nitroglycerin [Nitrostat] 0.4 mg SL Q5M PRN 10/23/17 10/23/17 Omeprazole [PriLOSEC] 40 mg PO DAILY 10/23/17 10/23/17 Potassium Chloride [K-Tab ER] 20 meq PO DAILY 10/23/17 10/23/17 Simvastatin [Zocor] 20 mg PO DAILY 10/23/17 10/23/17 ALPRAZolam [Xanax 0.5 MG Tablet] 0.5 mg PO TID PRN 01/29/18 01/29/18 Albuterol Neb [Proventil Neb] 2.5 mg IH TID PRN 01/29/18 01/29/18 Albuterol Sulfate [Proair Hfa] 2 puff IH Q4H PRN 01/29/18 01/29/18 Calcium Carbonate [Calcium] 500 mg PO BID 01/29/18 01/29/18 Cholecalciferol (D-3) [Vitamin D] 2,000 unit PO DAILY 01/29/18 01/29/18 Citalopram Hydrobromide 40 mg PO DAILY 01/29/18 01/29/18 [Citalopram HBr] Multivitamin [One Daily 1 each PO DAILY 01/29/18 01/29/18 Multivitamin] Oxybutynin Chloride [Ditropan Xl] 10 mg PO DAILY 01/29/18 01/29/18 Oxygen 2 l NS HS 01/29/18 01/29/18 Warfarin [Coumadin] 2.5 mg PO SUTUWETHFRSA 01/29/18 01/29/18 Allergies Allergy/AdvReac Type Severity Reaction Status Date / Time Penicillins AdvReac Anaphylaxis Verified 01/26/17 16:43 Constitutional: Reports: weight change (increase 15 lbs in 3 days). Denies: fever, chills, weakness Cardiovascular: Reports: dyspnea on exertion. Denies: chest pain, palpitations Respiratory: Reports: cough, dyspnea Gastrointestinal: Denies: abdominal pain, nausea, vomiting Neurological: Denies: headache Past Medical History - Past Medical History Medical history: Reports: arthritis, asthma, atrial fibrillation, CHF, coronary artery disease, CVA, diabetes, GERD, hyperlipidemia, hypertension, myocardial infarction, TIA, other Surgical history: Reports: coronary bypass (CABG), hysterectomy (Partial) Psychiatric history: Reports: no psych history FIELD OBSERVER history: Reports: non-contributory - Social History Smoking Status: Never smoker Smokeless Tobacco Status: No Alcohol use: Reports: none Drug use: Reports: none Physical Exam - General Limitations: no limitations General appearance: alert, in no apparent distress - Head Head exam: atraumatic, normocephalic - Respiratory Respiratory exam: Present: normal lung sounds bilaterally. Absent: respiratory distress, accessory muscle use - Cardiovascular Cardiovascular exam: Present: regular rate, normal rhythm, +S1, +S2 - Abdominal Exam Abdominal exam: Present: soft, Non-Tender, distention - Extremities Exam Extremities exam: Present: pedal edema (minimal) - Neurological Exam Neurological exam: Present: alert, oriented X3 - Psychiatric Psychiatric exam: Present: normal affect, normal mood - Skin Skin exam: Present: warm, dry Course Course Narrative: Patient is an 87 year old female presenting with shortness of breath and 15 lb weight gain over the last three days. Patient has history of CHF and lasix dose recently increased to 80 mg. Last echo in October showed EF of 50%. CBC, CMP, and PT/INR within normal limits. BNP mildly elevated at 166. CXR showed mild pulmonary vascular congestion and small pleural effusions. Administered 40 mg IV lasix. Patient's family did not feel comfortable managing this patient at home. Patient to be admitted. Case discussed with Dr. Maya who is admitting for the medicine service. Vital Signs Temperature 98.4 F 01/29/18 13:40 Pulse Rate 61 01/29/18 13:40 Respiratory Rate 14 01/29/18 13:40 Blood Pressure 107/49 01/29/18 13:40 O2 Sat by Pulse Oximetry 97 01/29/18 13:40 Temperature 98.4 F 01/29/18 13:40 Pulse Rate 64 01/29/18 15:25 Respiratory Rate 16 01/29/18 15:25 Blood Pressure 144/87 01/29/18 15:25 O2 Sat by Pulse Oximetry 95 01/29/18 15:25 Oxygen Delivery Oxygen Delivery Room Air Shortness of Breath/Dyspnea - Medical Records Medical records reviewed: Yes I reviewed the patient's medical records. - Lab Data Lab results reviewed: Yes I reviewed the patient's lab results. Result diagrams: 01/29/18 14:27 01/29/18 14:27 Lab Results 01/29/18 01/29/18 01/29/18 Range/Units 14:27 14:27 14:27 WBC 7.4 (4.3-11.1) K/mcL RBC 4.06 (3.82-4.97) M/mcL Hgb 11.9 (11.5-15.4) g/dL Hct 37.4 (35.3-44.9) % MCV 92.1 (83.0-100.0) fL MCH 29.3 (28.0-33.3) pg MCHC 31.8 (31.6-35.5) g/dL RDW 13.2 (11.5-14.5) % Plt Count 175 (140-400) K/mcL MPV 9.7 (9.4-12.4) fL Immature Gran % 0.5 (0-4) % Seg Neutrophils % 74.1 % Lymphocytes % 16.0 % Monocytes % 8.1 % Eosinophils % 0.9 % Basophils % 0.4 % Neutrophils # 5.5 (1.6-8.9) K/mcL Lymphocytes # 1.2 (0.6-4.6) K/mcL Monocytes # 0.6 (0.0-1.3) K/mcL Eosinophils # 0.1 (0.0-0.6) K/mcL Basophils # 0.0 (0.0-0.2) K/mcL Nucleated RBCs/100 WBC 0.3 H (0) /100 WBC PT 23.7 H (9.4-12.1) Seconds INR 2.2 Sodium 138 (136-145) mEq/L Potassium 4.0 (3.5-5.1) mEq/L Chloride 103 (98-107) mEq/L Carbon Dioxide 29 (23-29) mEq/L BUN 14 (8-23) mg/dL Creatinine 0.75 (0.60-1.20) mg/dL Est GFR ( Amer) > 60 (> 60) Est GFR (Non-Af Amer) > 60 (> 60) BUN/Creatinine Ratio 19 (6-26) Glucose 194 H (70-105) mg/dL Calculated Osmolality 292 (280-300) Lactic Acid (0.5-2.2) mmol/L Calcium 8.8 (8.6-10.3) mg/dL Total Bilirubin 0.6 (0.3-1.0) mg/dL Direct Bilirubin 0.1 (0.0-0.2) mg/dL Indirect Bilirubin 0.5 (0.0-1.2) mg/dL AST 15 (13-39) Units/L ALT 15 (7-52) Units/L Alkaline Phosphatase 73 (34-104) Units/L Troponin I < 0.03 (< 0.04) ng/mL B-Natriuretic Peptide (Less than 100) pg/mL Serum Total Protein 5.8 L (6.4-8.9) g/dL Albumin 3.6 (3.5-5.7) g/dL Globulin 2.2 L (2.4-3.5) g/dL Albumin/Globulin Ratio 1.6 (1.1-2.2) 01/29/18 01/29/18 Range/Units 14:27 14:27 WBC (4.3-11.1) K/mcL RBC (3.82-4.97) M/mcL Hgb (11.5-15.4) g/dL Hct (35.3-44.9) % MCV (83.0-100.0) fL MCH (28.0-33.3) pg MCHC (31.6-35.5) g/dL RDW (11.5-14.5) % Plt Count (140-400) K/mcL MPV (9.4-12.4) fL Immature Gran % (0-4) % Seg Neutrophils % % Lymphocytes % % Monocytes % % Eosinophils % % Basophils % % Neutrophils # (1.6-8.9) K/mcL Lymphocytes # (0.6-4.6) K/mcL Monocytes # (0.0-1.3) K/mcL Eosinophils # (0.0-0.6) K/mcL Basophils # (0.0-0.2) K/mcL Nucleated RBCs/100 WBC (0) /100 WBC PT (9.4-12.1) Seconds INR Sodium (136-145) mEq/L Potassium (3.5-5.1) mEq/L Chloride (98-107) mEq/L Carbon Dioxide (23-29) mEq/L BUN (8-23) mg/dL Creatinine (0.60-1.20) mg/dL Est GFR ( Amer) (> 60) Est GFR (Non-Af Amer) (> 60) BUN/Creatinine Ratio (6-26) Glucose (70-105) mg/dL Calculated Osmolality (280-300) Lactic Acid 1.4 (0.5-2.2) mmol/L Calcium (8.6-10.3) mg/dL Total Bilirubin (0.3-1.0) mg/dL Direct Bilirubin (0.0-0.2) mg/dL Indirect Bilirubin (0.0-1.2) mg/dL AST (13-39) Units/L ALT (7-52) Units/L Alkaline Phosphatase (34-104) Units/L Troponin I (< 0.04) ng/mL B-Natriuretic Peptide 166 H (Less than 100) pg/mL Serum Total Protein (6.4-8.9) g/dL Albumin (3.5-5.7) g/dL Globulin (2.4-3.5) g/dL Albumin/Globulin Ratio (1.1-2.2) - Radiology Data Radiology results reviewed: Yes I reviewed the patient's radiology results. Chest X-Ray 01/29/18 13:58 IMPRESSION: Mild pulmonary vascular congestion without overt pulmonary edema. Small bilateral pleural effusions along with mild likely bibasilar atelectasis. Stable cardiomegaly. D/ / 01/29/2018 14:14:09 Burak Calix MD / aurea Interpreting Provider: Burak Calix MD stela - Delfina Situation: Demographics Background: Presenting Complaint Assessment: Vital Signs, Course and respsone to treatment, Exam Concerns, Patient/Family Expectation, Pertinant Lab Results S.B.Shama Report Given to: Dr. Zulma Mathis Repor Time: 14:30
[2018-01-29] MEDS ORDERED: ALPRAZolam 0.5 MG TABLET PO PRN (16:20)
[2018-01-29] MEDS ORDERED: Nitroglycerin 0.4 MG TAB.SUBL SL PRN (16:20)
[2018-01-29] MEDS ORDERED: Albuterol 2.5 MG/3 ML NEBULIZER IH PRN (16:20)
--- NOTE | 2018-01-29 16:53 | Internal Med History&Physical ---
Date of Encounter: 01/29/18 Time of Encounter: 16:32 Assessment and Plan (1) Acute exacerbation of CHF (congestive heart failure) Current visit: Yes Status: Acute Admit to telemetry bed PO fluid restriction 1L /day Increase Lasix to 40 mgIVP BID Monitor fluid balance Echo ordered Trend Troponins First Troponin wnl No acute ischemic changes on ECG and no chest pain Recheck Mag and K+ Qualifiers: Heart failure type: unspecified Qualified Code(s): I50.9 - Heart failure, unspecified (2) CAD (coronary artery disease) Current visit: No Status: Chronic Telemetry No chest pain No new ECG changes Trend troponins Consider cardiology consult if troponins elevated Planned C within next few weeks per daughter Qualifiers: Coronary Disease-Associated Artery/Lesion type: unspecified vessel or lesion type [place] vs. 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 Qualifiers: Hypertension type: essential hypertension Qualified Code(s): I10 - Essential (primary) hypertension Internal Medicine - H&P: HPI Chief complaint: SOB and weight gain History of present illness: 87 yr old woman with history of CHF and CAD s/p prior [place] and CABG with upcoming cardiac cath planned in early February who has gained approximately 15 Lbs in 3 days and has become increasingly SOB with exertion. She has not had fever, chills, N/V and denies chest pain. Her daughter provides most of the history and states that she wears O2 at home primarily but has needed it more today and was found to be mildly hypoxic at home. Her initial troponin is wnl and her ECG showed A-Fib without new ST changes. Her additional comorbid conditions include A-Fib on Coumadin, HTN, DM-2, chronic hip and spine pain and obesity. Her CXR shoed stable cardiomegaly, mild pulmonary vascular congestion and small bilateral pleural effusions. She is currently afebrile with a normal WBC and no signs of infection. Past Med Surg Social Fam HX - Past Medical History Medical history: arthritis, asthma, atrial fibrillation, CHF, coronary artery disease, CVA, diabetes, GERD, hyperlipidemia, hypertension, myocardial infarction, TIA, other Psychiatric history: no psych history - Past Surgical History Surgical History: coronary bypass (CABG), hysterectomy (Partial) - Social History Smoking Status: Never smoker Smokeless Tobacco Status: No Alcohol use: none Drug use: none - Family History Father Family Member Ethnicity: Non- Living Status: Hx Family Cancer: Yes (Lung) Mother Family Member Ethnicity: Non- Living Status: Hx Family Cardiac Disorders: Yes (Stroke, atherosclerosis) Brother Family Member Ethnicity: Non- Living Status: Hx Family Cardiac Disorders: Yes (Stroke) Sister Family Member Ethnicity: Non- Living Status: Hx Family Neurologic Disorders: Yes (Alzheimer's disease) Internal Medicine - H&P: Meds Ferrous Sulfate [Iron] 325 mg PO BID 10/23/17 [History] Furosemide [Lasix] 40 mg PO DAILY 10/23/17 [History] Gabapentin [Neurontin] 100 mg PO BID 10/23/17 [History] Glimepiride [Amaryl] 2 mg PO DAILY 10/23/17 [History] HYDROcodone/Acet 7.5/325 mg [[place] 7.5-325 mg] 0.5 tab PO TID PRN 10/23/17 [ History] Losartan [Cozaar] 25 mg PO DAILY 10/23/17 [History] Metoprolol [Lopressor] 25 mg PO DAILY 10/23/17 [History] Nitroglycerin [Nitrostat] 0.4 mg SL Q5M PRN 10/23/17 [History] Omeprazole [PriLOSEC] 40 mg PO DAILY 10/23/17 [History] Potassium Chloride [K-Tab ER] 20 meq PO DAILY 10/23/17 [History] Simvastatin [Zocor] 20 mg PO HS 10/23/17 [History] ALPRAZolam [Xanax 0.5 MG Tablet] 0.5 mg PO TID PRN 01/29/18 [History] Albuterol Neb [Proventil Neb] 2.5 mg IH TID PRN 01/29/18 [History] Albuterol Sulfate [Proair Hfa] 2 puff IH Q4H PRN 01/29/18 [History] Calcium Carbonate [Calcium] 500 mg PO BID 01/29/18 [History] Cholecalciferol (D-3) [Vitamin D] 2,000 unit PO DAILY 01/29/18 [History] Citalopram Hydrobromide [Citalopram HBr] 40 mg PO DAILY 01/29/18 [History] Multivitamin [One Daily Multivitamin] 1 each PO DAILY 01/29/18 [History] Oxybutynin Chloride [Ditropan Xl] 10 mg PO DAILY 01/29/18 [History] Oxygen 2 l NS HS 01/29/18 [History] Warfarin [Coumadin] 2.5 mg PO SUTUWETHFRSA 01/29/18 [History] Warfarin [Coumadin] 5 mg PO MO 01/29/18 [History] 3 Allergy/AdvReac Type Severity Reaction Status Date / Time Penicillins AdvReac Anaphylaxis Verified 01/26/17 16:43 All Systems PM: A 10-system review of systems was performed and is negative for pertinent findings except as documented above in the HPI. - Constitutional Constitutional: weight gain, no chills, no fever(s), no night sweats - EENT Eyes: no change in vision, no discharge, no pain, no photophobia Ears: no ear discharge, no ear pain, no tinnitus Nose, mouth and throat: no dysphagia, no nasal discharge, no neck pain, no sore throat - Cardiovascular Cardiovascular ROS IM: no chest pain, no diaphoresis, no dyspnea, no lightheadedness, no palpitations, no syncope - Respiratory Respiratory: dyspnea, dyspnea on exertion, wheezing, no cough, no hemoptysis, no stridor, no pain on inspiration, no excessive phlegm production, no pain with cough - Gastrointestinal Gastrointestinal: no abdominal pain, no diarrhea, no hematemesis, no hematochezia, no melena, no nausea, no vomiting - Genitourinary Genitourinary: no change in urinary stream, no dysuria, no flank pain, no hematuria - Musculoskeletal Musculoskeletal ROS IM: arthralgias, no numbness, no tingling - Integumentary Integumentary IM: no rash, no unusual bruising - Neurological Neurological ROS: no confusion, no convulsions, no disequilibrium, no dizziness , no focal weakness, no numbness, no tingling, no tremor(s) - Psychiatric Psychiatric: no anxiety, no auditory hallucinations, no behavioral changes - Hematologic/Lymphatic Hematologic/Lymphatic: no easy bruising - Allergic/Immunologic Allergic/Immunologic: no tongue swelling - Constitutional Vitals: Temp Pulse Resp BP Pulse Ox 98.4 F 62 16 129/97 97 01/29/18 13:40 01/29/18 16:22 01/29/18 16:22 01/29/18 16:22 01/29/18 16:22 General appearance: Present: mild distress, A&O X 3, obese, answers questions appropriately - Head Head exam: Present: atraumatic, normocephalic - Eye Eye exam: Present: PERRL, conjuntiva pink, sclera anicteric. Absent: conjunctival injection, scleral icterus Pupils: Present: PERRL - Neck Neck exam general surgery: Present: normal inspection, supple, trachea midline. Absent: tenderness, nuchal rigidity, thyromegaly - Respiratory Respiratory exam: Present: rales. Absent: chest wall tenderness, CTAB, respiratory distress, rhonchi, stridor, tachypnea - Cardiovascular Cardiovascular exam: Present: irregular rhythm. Absent: bradycardia, diastolic murmur, JVD - GI/Abdominal GI/Abdominal exam: Present: distended, normal bowel sounds. Absent: diminished bowel sounds, guarding, rebound, rigid, tenderness - Extremities Exam Extremities exam: Present: pedal edema, warm - Neurological Exam Neurological exam: Present: alert, CN II-XII intact, oriented X3, no focal deficits. Absent: altered, reflexes normal, facial droop, speech deficit Internal Med - H&P Results - Labs CBC & Chem 7: 01/29/18 14:27 01/29/18 14:27
[2018-01-29] MEDS ORDERED: Warfarin perPT PO PRN (18:00)
[2018-01-29] MEDS ORDERED: *HR* Warfarin 2.5 MG TABLET PO ONE (18:00)
[2018-01-29] MEDS: Furosemide 40 MG/4 ML VIAL IVP SCH (18:05)
[2018-01-29] MEDS: Gabapentin 100 MG CAPSULE PO SCH (20:12)
[2018-01-29] MEDS: *HR* HYDROcodone/Acet 7.5/325 mg TABLET PO PRN (20:21)
[2018-01-29] MEDS ORDERED: NON-FORMULARY MEDICATION 1 EACH EACH (Oxygen [Oxygen] 2 L) NS SCH (21:00)
[2018-01-30 05:02] LABS: Mean Corpuscular HGB Conc 32.4 g/dL (31.6-35.5); Mean Corpuscular Hemoglobin 29.6 pg (28.0-33.3); Mean Corpuscular Volume 91.4 fL (83.0-100.0); Mean Platelet Volume 9.8 fL (9.4-12.4); Platelet Count 175 K/mcL (140-400); Red Blood Count 4.05 M/mcL (3.82-4.97); Red Cell Distribution Width 13.2 % (11.5-14.5)
[2018-01-30 05:15] LABS: Prothrombin Time 22.4 Seconds (9.4-12.1)
[2018-01-30 05:23] LABS: Alanine Aminotransferase 13 Units/L (7-52); Albumin 3.4 g/dL (3.5-5.7); Albumin/Globulin Ratio 1.4 (1.1-2.2); Alkaline Phosphatase 73 Units/L (34-104); Aspartate Amino Transferase 14 Units/L (13-39); BUN/Creatinine Ratio 20 (6-26); Bilirubin,Total 0.5 mg/dL (0.3-1.0); Blood Urea Nitrogen 15 mg/dL (8-23); Calcium 9.2 mg/dL (8.6-10.3); Carbon Dioxide 32 mEq/L (23-29); Chloride 102 mEq/L (98-107); Globulin 2.5 g/dL (2.4-3.5); Glucose 109 mg/dL (70-105); Osmolality,Calculated 295 (280-300); Potassium 3.7 mEq/L (3.5-5.1); Sodium 142 mEq/L (136-145); Total Protein 5.9 g/dL (6.4-8.9); eGFR For African Americans > 60 (> 60); eGFR For Non-African Americans > 60 (> 60)
--- NOTE | 2018-01-30 08:04 | Electrocardiograph Report ---
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
[2018-01-30] MEDS ORDERED: Furosemide 40 MG TABLET PO SCH (09:00)
[2018-01-30] MEDS: Furosemide 40 MG/4 ML VIAL IVP SCH ×2 (09:03→16:45)
[2018-01-30] MEDS: Multivit/Ca/Min/Fe/FA 1 TAB TABLET PO SCH (09:05)
[2018-01-30] MEDS: Cholecalciferol (D-3) 1,000 UNIT TABLET PO SCH (09:05)
[2018-01-30] MEDS: Gabapentin 100 MG CAPSULE PO SCH ×2 (09:05→20:17)
[2018-01-30] MEDS: *HR* Glimepiride 2 MG TABLET PO SCH (09:05)
--- NOTE | 2018-01-30 15:52 | Internal Med Progress Note ---
Date of Encounter: 01/30/18 Time of Encounter: 15:52 - Assessment and plan (1) Acute exacerbation of CHF (congestive heart failure) Current Visit: Yes Status: Acute Qualifiers: Heart failure type: unspecified Qualified Code(s): I50.9 - Heart failure, unspecified (2) CAD (coronary artery disease) Current Visit: No Status: Chronic Qualifiers: Coronary Disease-Associated Artery/Lesion type: unspecified vessel or lesion type [place] vs. transplanted heart: [place] heart Associated angina: angina presence unspecified Qualified Code(s): I25.10 - Atherosclerotic heart disease of [place] coronary artery without angina pectoris (3) Diabetes Current Visit: No Status: Acute Qualifiers: Diabetes mellitus type: type 2 Diabetes mellitus half-way insulin use: without half-way use Diabetes mellitus complication status: with unspecified complications Qualified Code(s): E11.8 - Type 2 diabetes mellitus with unspecified complications (4) Atrial fibrillation Current Visit: No Status: Chronic Qualifiers: Atrial fibrillation type: chronic Qualified Code(s): I48.2 - Chronic atrial fibrillation (5) HTN (hypertension) Current Visit: No Status: Chronic Qualifiers: Hypertension type: essential hypertension Qualified Code(s): I10 - Essential (primary) hypertension - Subjective Interval history: History of present illness: 87 yr old woman with history of CHF and CAD s/p prior [place] and CABG with upcoming cardiac cath planned in early February who has gained approximately 15 Lbs in 3 days and has become increasingly SOB with exertion. She has not had fever, chills, N/V and denies chest pain. Her daughter provides most of the history and states that she wears O2 at home primarily but has needed it more today and was found to be mildly hypoxic at home. Her initial troponin is wnl and her ECG showed A-Fib without new ST changes. Her additional comorbid conditions include A-Fib on Coumadin, HTN, DM-2, chronic hip and spine pain and obesity. Her CXR shoed stable cardiomegaly, mild pulmonary vascular congestion and small bilateral pleural effusions. She is currently afebrile with a normal WBC and no signs of infection. Interval changes: Breathing more comfortably Less supplemental O2 required Excellent diuressis Very weak Assessment and Plan (1) Acute exacerbation of CHF (congestive heart failure) Current visit: Yes Status: Acute Breathing more comfortably Continue PO fluid restriction 1L /day Continue increase Lasix to 40 mgI TRANSPORT AIDE BID Negative luid balance Check Mag and K+ (2) CAD (coronary artery disease) Current visit: No Status: Chronic Troponins negative x 3 No acute ischemic changes on ECG and no chest pain Telemetry No chest pain Planned LHC within next few weeks per daughter (3) Diabetes Continue oral antihyperglycemic agents unless Troponins increase If troponins increase change to [facility] Humalog qACHS AccuChecks qACHS (4) Atrial fibrillation Rate controlled on home BB On Coumadin with therapeutic INR RPh to dose Coumadin (5) HTN (hypertension) Continue ARB and BB BP controlled at this time. (6) Weakness: PT/OT recomment rehab Placement needed Check with DORMITORY SUPERVISOR if facility available - Constitutional Vitals: Temp Pulse Resp BP Pulse Ox 98.5 F 73 16 126/70 97 01/30/18 11:39 01/30/18 11:39 01/30/18 11:39 01/30/18 11:39 01/30/18 11:39 General appearance: Present: A&O X 3, morbidly obese, answers questions appropriately - Head Head exam: Present: atraumatic, normocephalic - Eye Eye exam: Present: PERRL, conjuntiva pink, sclera anicteric Pupils: Present: PERRL - Neck Neck exam general surgery: Present: supple, trachea midline. Absent: lymphadenopathy, tenderness, thyromegaly - Respiratory Respiratory exam: Present: CTAB. Absent: accessory muscle use, rales, rhonchi, wheezes - Cardiovascular Cardiovascular exam: Present: irregular rhythm, +S1, +S2. Absent: diastolic murmur, gallop, rubs, systolic murmur - GI/Abdominal GI/Abdominal exam: Present: normal bowel sounds, soft, no peritoneal signs. Absent: distended, tenderness - Extremities Exam Extremities exam: Present: warm. Absent: calf tenderness, cyanotic, full ROM, joint swelling, pedal edema - Neurological Exam Neurological exam: Present: CN II-XII intact, oriented X3, no focal deficits. Absent: pronater drift, facial droop, speech deficit - Psychiatric Psychiatric exam: Present: normal affect, normal mood - Skin Skin exam: Present: dry, intact Internal Medicine: Result - Labs CBC & Chem 7: 01/30/18 03:29 01/30/18 03:29 Labs: Short CBC 01/30/18 Range/Units 03:29 WBC 7.0 (4.3-11.1) K/mcL Hgb 12.0 (11.5-15.4) g/dL Hct 37.0 (35.3-44.9) % Plt Count 175 (140-400) K/mcL BMP 01/30/18 03:29 Sodium 142 Potassium 3.7 Chloride 102 Carbon Dioxide 32 H BUN 15 Creatinine 0.76 Glucose 109 H Calcium 9.2 Cardiac Enzymes 01/29/18 01/30/18 01/30/18 Range/Units 17:44 00:21 03:29 Troponin I < 0.03 < 0.03 < 0.03 (< 0.04) ng/mL Liver Function 01/30/18 Range/Units 03:29 Total Bilirubin 0.5 (0.3-1.0) mg/dL AST 14 (13-39) Units/L ALT 13 (7-52) Units/L Alkaline Phosphatase 73 (34-104) Units/L Albumin 3.4 L (3.5-5.7) g/dL - ABG Interpretation ABG results: PT/INR, D-dimer PT 22.4 Seconds (9.4-12.1) H 01/30/18 03:29 Consult Discharge Plan - Plan Referrals: Virginia Diaz, [facility] MAN [Primary Care Provider] -
[2018-01-30] MEDS ORDERED: *HR* Warfarin 2.5 MG TABLET PO ONE (18:00)
[2018-01-30] MEDS: *HR* HYDROcodone/Acet 7.5/325 mg TABLET PO PRN (20:18)
[2018-01-31 05:25] LABS: Basophils % 0.6 %; Eosinophils # 0.1 K/mcL (0.0-0.6); Eosinophils % 1.9 %; Hematocrit 40.5 % (35.3-44.9); Hemoglobin 12.6 g/dL (11.5-15.4); Immature Granulocytes % 0.6 % (0-4); Lymphocytes # 1.7 K/mcL (0.6-4.6); Lymphocytes % 25.2 %; Mean Corpuscular HGB Conc 31.1 g/dL (31.6-35.5); Mean Corpuscular Hemoglobin 28.9 pg (28.0-33.3); Mean Corpuscular Volume 92.9 fL (83.0-100.0); Monocytes # 0.7 K/mcL (0.0-1.3); Monocytes % 10.1 %; Neutrophils # 4.3 K/mcL (1.6-8.9); Platelet Count 195 K/mcL (140-400); Red Blood Count 4.36 M/mcL (3.82-4.97); Red Cell Distribution Width 13.1 % (11.5-14.5); Segmented Neutrophils % 61.6 %
[2018-01-31 05:28] LABS: INR 2.3; Prothrombin Time 25.5 Seconds (9.4-12.1)
[2018-01-31 05:42] LABS: BUN/Creatinine Ratio 21 (6-26); Blood Urea Nitrogen 19 mg/dL (8-23); Calcium 8.7 mg/dL (8.6-10.3); Carbon Dioxide 30 mEq/L (23-29); Chloride 102 mEq/L (98-107); Glucose 110 mg/dL (70-105); Osmolality,Calculated 291 (280-300); Potassium 3.9 mEq/L (3.5-5.1); Sodium 139 mEq/L (136-145); eGFR For African Americans > 60 (> 60); eGFR For Non-African Americans 59 (> 60)
[2018-01-31] MEDS: Furosemide 40 MG/4 ML VIAL IVP SCH ×2 (08:50→17:30)
[2018-01-31] MEDS: Multivit/Ca/Min/Fe/FA 1 TAB TABLET PO SCH (08:50)
[2018-01-31] MEDS: Cholecalciferol (D-3) 1,000 UNIT TABLET PO SCH (08:51)
[2018-01-31] MEDS: *HR* Glimepiride 2 MG TABLET PO SCH (08:51)
[2018-01-31] MEDS: Gabapentin 100 MG CAPSULE PO SCH ×2 (08:51→19:44)
[2018-01-31] MEDS: *HR* HYDROcodone/Acet 7.5/325 mg TABLET PO PRN ×2 (15:46→19:44)
--- NOTE | 2018-01-31 17:04 | Internal Med Progress Note ---
Date of Encounter: 01/31/18 Time of Encounter: 17:04 - Assessment and plan (1) Acute exacerbation of CHF (congestive heart failure) Current Visit: Yes Status: Acute Qualifiers: Heart failure type: unspecified Qualified Code(s): I50.9 - Heart failure, unspecified (2) CAD (coronary artery disease) Current Visit: No Status: Chronic Qualifiers: Coronary Disease-Associated Artery/Lesion type: unspecified vessel or lesion type [place] vs. transplanted heart: [place] heart Associated angina: angina presence unspecified Qualified Code(s): I25.10 - Atherosclerotic heart disease of [place] coronary artery without angina pectoris (3) Diabetes Current Visit: No Status: Acute Qualifiers: Diabetes mellitus type: type 2 Diabetes mellitus usp insulin use: without usp use Diabetes mellitus complication status: with unspecified complications Qualified Code(s): E11.8 - Type 2 diabetes mellitus with unspecified complications (4) Atrial fibrillation Current Visit: No Status: Chronic Qualifiers: Atrial fibrillation type: chronic Qualified Code(s): I48.2 - Chronic atrial fibrillation (5) HTN (hypertension) Current Visit: No Status: Chronic Qualifiers: Hypertension type: essential hypertension Qualified Code(s): I10 - Essential (primary) hypertension - Subjective Interval history: History of present illness: 87 yr old woman with history of CHF and CAD s/p prior NE and CABG with upcoming cardiac cath planned in early February who has gained approximately 15 Lbs in 3 days and has become increasingly SOB with exertion. She has not had fever, chills, N/V and denies chest pain. Her daughter provides most of the history and states that she wears O2 at home primarily but has needed it more today and was found to be mildly hypoxic at home. Her initial troponin is wnl and her ECG showed A-Fib without new ST changes. Her additional comorbid conditions include A-Fib on Coumadin, HTN, DM-2, chronic hip and spine pain and obesity. Her CXR shoed stable cardiomegaly, mild pulmonary vascular congestion and small bilateral pleural effusions. She is currently afebrile with a normal WBC and no signs of infection. Interval changes: 01/30/2018: Breathing more comfortably Less supplemental O2 required Excellent diuresis Very weak 01/31/2018: Breathing comfortably on 2 L/NC No Cp or pressure Net neg fluid balance Still awaiting placement Assessment and Plan (1) Acute exacerbation of CHF (congestive heart failure) Breathing more comfortably Continue PO fluid restriction 1L /day Continue increase Lasix to 40 mgI MANAGER DAIRY BID Cr creeping upward. Watch renal function closely with increased diuresis Negative luid balance Check Mag and K+ (2) CAD (coronary artery disease) Troponins negative x 3 No acute ischemic changes on ECG and no chest pain Telemetry No chest pain Planned LHC within next few weeks per daughter (3) Diabetes Continue oral antihyperglycemic agents unless Troponins increase If troponins increase change to SSI Humalog qACHS AccuChecks qACHS (4) Atrial fibrillation Rate controlled on home BB On Coumadin with therapeutic INR RPh to dose Coumadin (5) HTN (hypertension) Continue ARB and BB BP controlled at this time. (6) Weakness: PT/OT recomment rehab Placement needed Check with [facility] PRINTER HELPER if facility available - Constitutional Vitals: Temp Pulse Resp BP Pulse Ox 97.7 F 70 16 131/71 98 01/31/18 15:40 01/31/18 15:40 01/31/18 15:40 01/31/18 15:40 01/31/18 15:40 General appearance: Present: A&O X 3, morbidly obese, answers questions appropriately - Head Head exam: Present: atraumatic, normocephalic - Eye Eye exam: Present: PERRL, conjuntiva pink, sclera anicteric Pupils: Present: PERRL - Neck Neck exam general surgery: Present: supple, trachea midline. Absent: lymphadenopathy - Respiratory Respiratory exam: Present: CTAB. Absent: accessory muscle use, rales, rhonchi, wheezes - Cardiovascular Cardiovascular exam: Present: RRR, +S1, +S2. Absent: diastolic murmur, gallop, rubs, systolic murmur - GI/Abdominal GI/Abdominal exam: Present: normal bowel sounds, soft, no peritoneal signs. Absent: distended, tenderness - Extremities Exam Extremities exam: Present: warm, radial pulses palpable and symmetrical. Absent : cyanotic, pedal edema - Neurological Exam Neurological exam: Present: CN II-XII intact, oriented X3, no focal deficits. Absent: pronater drift, facial droop, speech deficit - Psychiatric Psychiatric exam: Present: normal affect, normal mood - Skin Skin exam: Present: dry, intact Internal Medicine: Result - Labs CBC & Chem 7: 01/31/18 04:26 01/31/18 04:26 Labs: Short CBC 01/31/18 Range/Units 04:26 WBC 6.9 (4.3-11.1) K/mcL Hgb 12.6 (11.5-15.4) g/dL Hct 40.5 (35.3-44.9) % Plt Count 195 (140-400) K/mcL Neutrophils # 4.3 (1.6-8.9) K/mcL BMP 01/31/18 04:26 Sodium 139 Potassium 3.9 Chloride 102 Carbon Dioxide 30 H BUN 19 Creatinine 0.91 Glucose 110 H Calcium 8.7 - ABG Interpretation ABG results: PT/INR, D-dimer PT 25.5 Seconds (9.4-12.1) H 01/31/18 04:26 Consult Discharge Plan - Plan Referrals: Virginia Diaz, STILL PU[employer] OPERATOR [Primary Care Provider] -
[2018-01-31] MEDS ORDERED: *HR* Warfarin 2.5 MG TABLET PO ONE (18:00)
[2018-02-01 06:49] LABS: Basophils % 0.4 %; Eosinophils # 0.1 K/mcL (0.0-0.6); Eosinophils % 1.6 %; Hemoglobin 12.5 g/dL (11.5-15.4); Immature Granulocytes % 0.5 % (0-4); Lymphocytes # 1.7 K/mcL (0.6-4.6); Lymphocytes % 23.4 %; Mean Corpuscular HGB Conc 32.1 g/dL (31.6-35.5); Mean Corpuscular Hemoglobin 29.1 pg (28.0-33.3); Mean Corpuscular Volume 90.9 fL (83.0-100.0); Mean Platelet Volume 9.4 fL (9.4-12.4); Monocytes # 0.7 K/mcL (0.0-1.3); Monocytes % 9.9 %; Neutrophils # 4.7 K/mcL (1.6-8.9); Platelet Count 180 K/mcL (140-400); Red Blood Count 4.29 M/mcL (3.82-4.97); Segmented Neutrophils % 64.2 %
[2018-02-01 07:08] LABS: INR 2.2; Prothrombin Time 24.5 Seconds (9.4-12.1)
[2018-02-01 07:18] LABS: BUN/Creatinine Ratio 24 (6-26); Blood Urea Nitrogen 22 mg/dL (8-23); Calcium 8.8 mg/dL (8.6-10.3); Carbon Dioxide 34 mEq/L (23-29); Chloride 100 mEq/L (98-107); Glucose 127 mg/dL (70-105); Osmolality,Calculated 293 (280-300); Potassium 3.6 mEq/L (3.5-5.1); Sodium 139 mEq/L (136-145); eGFR For African Americans > 60 (> 60); eGFR For Non-African Americans 58 (> 60)
[2018-02-01] MEDS: Furosemide 40 MG/4 ML VIAL IVP SCH ×2 (09:03→17:45)
[2018-02-01] MEDS: Gabapentin 100 MG CAPSULE PO SCH (09:03)
[2018-02-01] MEDS: *HR* Glimepiride 2 MG TABLET PO SCH (09:03)
[2018-02-01] MEDS: Cholecalciferol (D-3) 1,000 UNIT TABLET PO SCH (09:03)
[2018-02-01] MEDS: Multivit/Ca/Min/Fe/FA 1 TAB TABLET PO SCH (09:04)
[2018-02-01 14:58] VITALS: BP 109/59
--- NOTE | 2018-02-01 17:15 | Discharge Summary ---
Date of Encounter: 02/01/18 Time of Encounter: 17:08 - Discharge Diagnosis (1) Acute exacerbation of CHF (congestive heart failure) Priority: Primary Status: Acute Qualifiers: Heart failure type: unspecified Qualified Code(s): I50.9 - Heart failure, unspecified (2) CAD (coronary artery disease) Priority: Secondary Status: Chronic Qualifiers: Coronary Disease-Associated Artery/Lesion type: unspecified vessel or lesion type [place] vs. transplanted heart: [place] heart Associated angina: angina presence unspecified Qualified Code(s): I25.10 - Atherosclerotic heart disease of [place] coronary artery without angina pectoris (3) Diabetes Priority: Secondary Status: Chronic Qualifiers: Diabetes mellitus type: type 2 Diabetes mellitus terminal worker insulin use: without terminal worker use Diabetes mellitus complication status: with unspecified complications Qualified Code(s): E11.8 - Type 2 diabetes mellitus with unspecified complications (4) Atrial fibrillation Priority: Secondary Status: Chronic Qualifiers: Atrial fibrillation type: chronic Qualified Code(s): I48.2 - Chronic atrial fibrillation (5) HTN (hypertension) Priority: Secondary Status: Chronic Qualifiers: Hypertension type: essential hypertension Qualified Code(s): I10 - Essential (primary) hypertension Hospital course: 87 yr old woman with history of CHF and CAD s/p prior [place] and CABG with upcoming cardiac cath planned in early February who has gained approximately 15 Lbs in 3 days and has become increasingly SOB with exertion. She has not had fever, chills, N/V and denies chest pain. Her daughter provides most of the history and states that she wears O2 at home primarily but has needed it more today and was found to be mildly hypoxic at home. Her initial troponin is wnl and her ECG showed A-Fib without new ST changes. Her additional comorbid conditions include A-Fib on Coumadin, HTN, DM-2, chronic hip and spine pain and obesity. Her CXR shoed stable cardiomegaly, mild pulmonary vascular congestion and small bilateral pleural effusions. She is currently afebrile with a normal WBC and no signs of infection. Her diuresis was increase and she immediately began breathing better. She was very week and unable to return home with rehab. She was evaluated by both PT and OT and they recommended in patient rehab. Her creatinine mildly increased with increased diuresis so at the time of discharge her initial dose Lasix was restarted. Her CHF exacerbation had resolved by the time she was discharged. Discharge discussed with: patient, family, nurse Time spent discussing smoking cessation with patient: more than 10 minutes - Time Spent with Patient Total time spent providing and/or coordinating discharge services: Greater than 30 minutes - Discharge Medications Prescriptions: HYDROcodone/Acet 7.5/325 mg [[place] 7.5-325 mg] 0.5 tab PO TID PRN 5 Days #15 tablet PRN Reason: Pain Home Medications: Ferrous Sulfate [Iron] 325 mg PO BID 10/23/17 [History] Furosemide [Lasix] 40 mg PO DAILY 10/23/17 [History] Gabapentin [Neurontin] 100 mg PO BID 10/23/17 [History] Glimepiride [Amaryl] 2 mg PO DAILY 10/23/17 [History] Losartan [Cozaar] 25 mg PO DAILY 10/23/17 [History] Metoprolol [Lopressor] 25 mg PO DAILY 10/23/17 [History] Nitroglycerin [Nitrostat] 0.4 mg SL Q5M PRN 10/23/17 [History] Omeprazole [PriLOSEC] 40 mg PO DAILY 10/23/17 [History] Potassium Chloride [K-Tab ER] 20 meq PO DAILY 10/23/17 [History] Simvastatin [Zocor] 20 mg PO HS 10/23/17 [History] ALPRAZolam [Xanax 0.5 MG Tablet] 0.5 mg PO TID PRN 01/29/18 [History] Albuterol Neb [Proventil Neb] 2.5 mg IH TID PRN 01/29/18 [History] Albuterol Sulfate [Proair Hfa] 2 puff IH Q4H PRN 01/29/18 [History] Calcium Carbonate [Calcium] 500 mg PO BID 01/29/18 [History] Cholecalciferol (D-3) [Vitamin D] 2,000 unit PO DAILY 01/29/18 [History] Citalopram Hydrobromide [Citalopram HBr] 40 mg PO DAILY 01/29/18 [History] Multivitamin [One Daily Multivitamin] 1 each PO DAILY 01/29/18 [History] Oxybutynin Chloride [Ditropan Xl] 10 mg PO DAILY 01/29/18 [History] Oxygen 2 l NS HS 01/29/18 [History] Warfarin [Coumadin] 2.5 mg PO SUTUWETHFRSA 01/29/18 [History] Warfarin [Coumadin] 5 mg PO MO 01/29/18 [History] HYDROcodone/Acet 7.5/325 mg [[place] 7.5-325 mg] 0.5 tab PO TID PRN 5 Days #15 tablet 02/01/18 [Rx] Allergies/Adverse Reactions: 3 Allergy/AdvReac Type Severity Reaction Status Date / Time Penicillins AdvReac Anaphylaxis Verified 01/26/17 16:43 Date of admission: 01/29/18 17:19 Primary care physician: Virginia Diaz CNP Consults: 01/30/18 15:46 Consult to Physical Therapy [CONS] Routine Comment: Evaluate, develop and implement POC Reason for Consult: weakness Does patient have active BEDREST order?: No Is patient medically & hemodynamically stable?: Yes Patient assessed for mobility or mobilized this visit?: No 01/30/18 15:48 Consult to Occupational Therapy [CONS] Routine Comment: Evaluate, develop and implement POC Reason for Consult: weakness eval for placement Does patient have active BEDREST order?: No Is patient medically & hemodynamically stable?: Yes Patient assessed for mobility or mobilized this visit?: No - Constitutional Vitals: Temp Pulse Resp BP Pulse Ox 97.4 F L 71 18 109/59 97 02/01/18 14:56 02/01/18 14:56 02/01/18 14:56 02/01/18 14:56 02/01/18 14:56 General appearance: Present: A&O X 3, morbidly obese, answers questions appropriately - Head Head exam: Present: atraumatic, normocephalic - Eye Eye exam: Present: PERRL, conjuntiva pink, sclera anicteric Pupils: Present: PERRL - Neck Neck exam general surgery: Present: supple, trachea midline. Absent: lymphadenopathy - Respiratory Respiratory exam: Present: CTAB. Absent: accessory muscle use, rales, rhonchi, wheezes - Cardiovascular Cardiovascular exam: Present: RRR, +S1, +S2. Absent: diastolic murmur, gallop, rubs, systolic murmur - GI/Abdominal GI/Abdominal exam: Present: normal bowel sounds, soft, no peritoneal signs. Absent: distended, tenderness - Extremities Exam Extremities exam: Present: warm, radial pulses palpable and symmetrical. Absent : calf tenderness, cyanotic, pedal edema - Neurological Exam Neurological exam: Present: CN II-XII intact, oriented X3, no focal deficits. Absent: pronater drift, facial droop, speech deficit - Skin Skin exam: Present: dry, intact - Patient Status Disposition: Transfer SNF Condition: Fair - Discharge Instructions Follow Up With: Virginia Diaz DIRECTOR OF INTEGRATED MARKETING [Primary Care Provider] -
--- NOTE | 2018-02-01 17:17 | Physician Discharge Referral ---
ExtendedCare Referral Info Transfer To: On License Of [facility] Provider in Charge: Anoop Provider in Charge after Transfer: PCP Institutional Level of Care: Skilled - Diagnosis (1) Acute exacerbation of CHF (congestive heart failure) Priority: Primary Status: Acute (2) CAD (coronary artery disease) Priority: Secondary Status: Chronic (3) Diabetes Priority: Secondary Status: Chronic (4) Atrial fibrillation Priority: Secondary Status: Chronic (5) HTN (hypertension) Priority: Secondary Status: Chronic - Transfer Medications Prescriptions: HYDROcodone/Acet 7.5/325 mg [[place] 7.5-325 mg] 0.5 tab PO TID PRN 5 Days #15 tablet PRN Reason: Pain Home Medications: Ferrous Sulfate [Iron] 325 mg PO BID 10/23/17 [History] Furosemide [Lasix] 40 mg PO DAILY 10/23/17 [History] Gabapentin [Neurontin] 100 mg PO BID 10/23/17 [History] Glimepiride [Amaryl] 2 mg PO DAILY 10/23/17 [History] Losartan [Cozaar] 25 mg PO DAILY 10/23/17 [History] Metoprolol [Lopressor] 25 mg PO DAILY 10/23/17 [History] Nitroglycerin [Nitrostat] 0.4 mg SL Q5M PRN 10/23/17 [History] Omeprazole [PriLOSEC] 40 mg PO DAILY 10/23/17 [History] Potassium Chloride [K-Tab ER] 20 meq PO DAILY 10/23/17 [History] Simvastatin [Zocor] 20 mg PO HS 10/23/17 [History] ALPRAZolam [Xanax 0.5 MG Tablet] 0.5 mg PO TID PRN 01/29/18 [History] Albuterol Neb [Proventil Neb] 2.5 mg IH TID PRN 01/29/18 [History] Albuterol Sulfate [Proair Hfa] 2 puff IH Q4H PRN 01/29/18 [History] Calcium Carbonate [Calcium] 500 mg PO BID 01/29/18 [History] Cholecalciferol (D-3) [Vitamin D] 2,000 unit PO DAILY 01/29/18 [History] Citalopram Hydrobromide [Citalopram HBr] 40 mg PO DAILY 01/29/18 [History] Multivitamin [One Daily Multivitamin] 1 each PO DAILY 01/29/18 [History] Oxybutynin Chloride [Ditropan Xl] 10 mg PO DAILY 01/29/18 [History] Oxygen 2 l NS HS 01/29/18 [History] Warfarin [Coumadin] 2.5 mg PO SUTUWETHFRSA 01/29/18 [History] Warfarin [Coumadin] 5 mg PO MO 01/29/18 [History] HYDROcodone/Acet 7.5/325 mg [[place] 7.5-325 mg] 0.5 tab PO TID PRN 5 Days #15 tablet 02/01/18 [Rx] Allergies/Adverse Reactions: 3 Allergy/AdvReac Type Severity Reaction Status Date / Time Penicillins AdvReac Anaphylaxis Verified 01/26/17 16:43 - Respiratory Orders Smoking Cessation: Smoking cessation has been advised. For more information, call the [place] Tobacco Quit Line at 8-223-VETXNOW. CERTIFICATION: I certify that the transfer of the above named patient to an Extended Care Facility is necessary for the continuing treatment of the diagnosis listed. The above information is true and accurate reflection of patient's current condition. Confidential - Redisclosure prohibited without a patient's written consent.
[2018-02-01] MEDS ORDERED: *HR* Warfarin 2.5 MG TABLET PO ONE (18:00)
== END 2018-02-01 18:55 | DRG 293 ==
LOC: 3BNU 13:38 → EMEROO 13:38 → 3BNU 17:17
PROVIDERS: ADMIT Internal Medicine; ATTEND Registered Nurse

== ENCOUNTER 2019-05-07 07:42 | Inpatient (IN) ==
[2019-05-07 08:25] LABS: Basophils # 0.1 K/mcL (0.0-0.2); Basophils % 0.6 %; Eosinophils # 0.1 K/mcL (0.0-0.6); Eosinophils % 1.1 %; Hematocrit 38.9 % (35.3-44.9); Hemoglobin 12.3 g/dL (11.5-15.4); Immature Granulocytes % 0.4 % (0-4); Lymphocytes # 1.4 K/mcL (0.6-4.6); Mean Corpuscular HGB Conc 31.6 g/dL (31.6-35.5); Mean Corpuscular Hemoglobin 29.1 pg (28.0-33.3); Mean Corpuscular Volume 92.2 fL (83.0-100.0); Mean Platelet Volume 9.6 fL (9.4-12.4); Monocytes # 0.9 K/mcL (0.0-1.3); Platelet Count 219 K/mcL (140-400); Red Blood Count 4.22 M/mcL (3.82-4.97); Red Cell Distribution Width 13.1 % (11.5-14.5); Segmented Neutrophils % 70.9 %; White Blood Count 8.5 K/mcL (4.3-11.1)
[2019-05-07 08:36] LABS: INR 3.7; Prothrombin Time 42.5 Seconds (9.4-12.1)
[2019-05-07 08:52] LABS: Alanine Aminotransferase 10 Units/L (7-52); Albumin 3.8 g/dL (3.5-5.7); Albumin/Globulin Ratio 1.5 (1.1-2.2); Alkaline Phosphatase 84 Units/L (34-104); Aspartate Amino Transferase 16 Units/L (13-39); BUN/Creatinine Ratio 21 (6-26); Bilirubin,Direct 0.1 mg/dL (0.0-0.2); Bilirubin,Indirect 0.6 mg/dL (0.0-1.2); Bilirubin,Total 0.7 mg/dL (0.3-1.0); Blood Urea Nitrogen 14 mg/dL (8-23); Calcium 9.4 mg/dL (8.6-10.3); Carbon Dioxide 30 mEq/L (23-29); Chloride 101 mEq/L (98-107); Globulin 2.6 g/dL (2.4-3.5); Glucose 172 mg/dL (70-105); Lipase < 3 Units/L (11-82); Osmolality,Calculated 301 (280-300); Potassium 3.4 mEq/L (3.5-5.1); Sodium 143 mEq/L (136-145); Total Protein 6.4 g/dL (6.4-8.9); Troponin I < 0.03 ng/mL (< 0.04); eGFR For African Americans > 60 (> 60); eGFR For Non-African Americans > 60 (> 60)
[2019-05-07 09:00] LABS: Bilirubin,Urine Negative (Negative); Blood,Urine Moderate (Negative); Clarity,Urine Turbid (Clear); Glucose,Urine (UA) Normal (Normal); Ketones,Urine Negative (Negative); Leukocyte Esterase,Urine Large (Negative); Nitrite,Urine Positive (Negative); Protein,Urine Trace mg/dL (Neg-Trace); Urobilinogen,Urine Normal (Normal)
[2019-05-07 09:01] LABS: Color,Urine Yellow (Yellow)
[2019-05-07 09:08] LABS: Bacteria,Urine Many per hpf (None-Few); Hyaline Casts,Urine None Seen per lpf (None-Few); Squamous Epithelial Cell,Urine Many per lpf (None-Few); WBC,Urine TNTC per hpf (0-3)
--- NOTE | 2019-05-07 09:30 | Emergency Department Note ---
Disposition Clinical Impression: Chest pain Qualifiers: Chest pain type: unspecified Qualified Code(s): R07.9 - Chest pain, unspecified UTI (urinary tract infection) Qualifiers: Urinary tract infection type: site unspecified Hematuria presence: with hematuria Qualified Code(s): N39.0 - Urinary tract infection, site not specified Disposition: Admitted As Inpatient Condition: Fair Time of Disposition: 10:00 Chest Pain HPI - General Chief Complaint: ED Chest Pain Stated Complaint: chest pain Time Seen by Provider: 05/07/19 07:44 Source: patient, EMS Mode of arrival: EMS Limitations: no limitations Vital Signs Reviewed: Yes Nursing Notes Reviewed: Yes - History of Present Illness Pt complaint: chest pain Onset (ago): hour(s) Duration: constant, now resolved Onset: during rest, awoke with symptoms Pain Location: left chest Severity: moderate, severe, now resolved Severity scale (1-10): 0 Quality: aching, dull Pain Radiation: other (left flank) Improves with: nitroglycerin (took 3 at home prior to EMS arrival) Worsens with: nothing Context: other (Hx of CAD) Associated symptoms: Denies: nausea, vomiting, diaphoresis, dyspnea, sense of impending doom, syncope, palpitations, fever, cough, leg swelling Treatments prior to arrival chest pain: nitroglycerin (x3) - Related Data On Oral Contraceptives: No Home Medications Medication Instructions Recorded Confirmed Ferrous Sulfate [Iron] 325 mg PO DAILY 10/23/17 05/07/19 Furosemide [Lasix] 40 mg PO BID 10/23/17 05/07/19 Glimepiride [Amaryl] 2 mg PO DAILY 10/23/17 05/07/19 Metoprolol [Lopressor] 25 mg PO DAILY 10/23/17 05/07/19 Nitroglycerin [Nitrostat] 0.4 mg SL Q5M PRN 10/23/17 05/07/19 Omeprazole [PriLOSEC] 40 mg PO DAILY 10/23/17 05/07/19 Potassium Chloride [K-Tab ER] 20 meq PO DAILY 10/23/17 05/07/19 Simvastatin [Zocor] 20 mg PO HS 10/23/17 05/07/19 ALPRAZolam [Xanax 0.5 MG Tablet] 0.5 mg PO TID PRN 01/29/18 05/07/19 Albuterol Neb [Proventil Neb] 2.5 mg IH TID PRN 01/29/18 05/07/19 Albuterol Sulfate [Proair Hfa] 2 puff IH Q4H PRN 01/29/18 05/07/19 Citalopram Hydrobromide 40 mg PO DAILY 01/29/18 05/07/19 [Citalopram HBr] Multivitamin [One Daily 1 each PO DAILY 01/29/18 05/07/19 Multivitamin] Oxybutynin Chloride [Ditropan Xl] 10 mg PO DAILY 01/29/18 05/07/19 Oxygen 2 l NS HS 01/29/18 05/07/19 Fluticasone Propionate Nasal 1 spray IN PRN PRN 05/07/19 05/07/19 [Flonase] Ranitidine HCl mg PO BID 05/07/19 Warfarin [Coumadin] 2 mg PO DAILY 05/07/19 05/07/19 Previous Rx's Medication Instructions Recorded HYDROcodone/Acet 7.5/325 mg [[place] 0.5 tab PO TID PRN 5 Days #15 02/01/18 7.5-325 mg] tablet Allergies Allergy/AdvReac Type Severity Reaction Status Date / Time Penicillins AdvReac Anaphylaxis Verified 05/07/19 07:50 All systems ED: reviewed and negative except as stated. Review of Systems: As Per HPI Constitutional: Denies: fever, chills, weakness Eyes: Denies: vision change ENT ED: Denies: throat pain, dental pain, congestion, dysphagia Cardiovascular: Reports: as per HPI, chest pain. Denies: palpitations, dyspnea on exertion, orthopnea, edema, syncope Respiratory: Denies: cough, dyspnea, wheezes Gastrointestinal: Denies: abdominal pain, nausea, vomiting, diarrhea Genitourinary: Denies: urgency, dysuria, frequency, hematuria Musculoskeletal: Reports: as per HPI, back pain (left flank). 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 Absent: scleral icterus, conjunctival injection, periorbital swelling - ENT ENT exam: mucous membranes dry - Neck Neck exam: Present: normal inspection, full ROM, trachea midline. Absent: meningismus - Chest Chest inspection: Present: normal inspection. Absent: tenderness - Respiratory Respiratory exam: Present: normal lung sounds bilaterally. Absent: respiratory distress, wheezes, stridor - Cardiovascular Cardiovascular exam: Present: regular rate, irregular rhythm. Absent: systolic murmur, diastolic murmur - Abdominal Exam Abdominal exam: Present: soft, Non-Tender. Absent: distention, guarding, rebound, rigidity, ascites, mass, pulsatile mass - Extremities Exam Extremities exam: Present: normal inspection, normal capillary refill. Absent: pedal edema - Back Exam Back exam: Present: normal inspection. Absent: tenderness, CVA tenderness (R), CVA tenderness (L), muscle spasm, paraspinal tenderness, vertebral tenderness, rashes, sciatic notch tenderness (R), sciatic notch tenderness (L) - Neurological Exam Neurological exam: Present: alert, oriented X3, CN II-XII intact - Psychiatric Psychiatric exam: Present: normal affect, normal mood - Skin Skin exam: Present: warm, dry, intact, normal color Course Course Narrative: Patient with history of dementia, A. fib on Coumadin, CHF, coronary artery disease and TIAs presents from home by squad for evaluation of chest pain. It. It woke her up. She took three nitroglycerin and the pain in the chest is gone. She mentions pain in the left flank as well. This is still present and is dull, not reproducible with movement or palpation. Vitals are normal. We will check labs, chest x-ray. Case discussed with Dr.N Prescott. She has had [id number] time with patient and agrees with the assessment, plan. Patient's labs show a UTI. Troponin is normal. Her EKG shows A. fib rate of 97, no ST elevation or depression noted, anterior infarct which is old. Chest Xray read by rad as small bilat pleural effusions and cardiomegally. The Short impression states CHF. Patient has no peripheral edema, rales, cough, dyspnea/JOHN and appears dry. Do not suspect acute CHF exacerbation. HEART score is 5 and she has a significant UTI. Will admit. - Consultations Consultation #1: Discussed ABX options with Pharmacist as patient has a reported allergy to PCN. She is also on Coumadin and citalopram which makes fluoroquinolones an unsafe option. Will monitor patient closely Time: 09:33 Vital Signs Temperature 98.3 F 05/07/19 07:46 Pulse Rate 99 05/07/19 07:46 Respiratory Rate 18 05/07/19 07:46 Blood Pressure 125/63 05/07/19 07:46 O2 Sat by Pulse Oximetry 96 05/07/19 07:46 Temperature 98.0 F 05/07/19 16:43 Pulse Rate 94 05/07/19 16:43 Respiratory Rate 18 05/07/19 16:43 Blood Pressure 126/65 05/07/19 16:43 O2 Sat by Pulse Oximetry 94 05/07/19 16:43 Oxygen Delivery Oxygen Delivery Room Air Chest Pain - Lab Data Result diagrams: 05/07/19 07:55 05/07/19 07:55 Lab Results 05/07/19 05/07/19 05/07/19 Range/Units 07:55 07:55 07:55 WBC 8.5 (4.3-11.1) K/mcL RBC 4.22 (3.82-4.97) M/mcL Hgb 12.3 (11.5-15.4) g/dL Hct 38.9 (35.3-44.9) % MCV 92.2 (83.0-100.0) fL MCH 29.1 (28.0-33.3) pg MCHC 31.6 (31.6-35.5) g/dL RDW 13.1 (11.5-14.5) % Plt Count 219 (140-400) K/mcL MPV 9.6 (9.4-12.4) fL Immature Gran % 0.4 (0-4) % Seg Neutrophils % 70.9 % Lymphocytes % 17.0 % Monocytes % 10.0 % Eosinophils % 1.1 % Basophils % 0.6 % Neutrophils # 6.0 (1.6-8.9) K/mcL Lymphocytes # 1.4 (0.6-4.6) K/mcL Monocytes # 0.9 (0.0-1.3) K/mcL Eosinophils # 0.1 (0.0-0.6) K/mcL Basophils # 0.1 (0.0-0.2) K/mcL PT 42.5 H (9.4-12.1) Seconds INR 3.7 APTT 48.0 H (26.0-36.0) Seconds Sodium (136-145) mEq/L Potassium (3.5-5.1) mEq/L Chloride (98-107) mEq/L Carbon Dioxide (23-29) mEq/L BUN (8-23) mg/dL Creatinine (0.60-1.20) mg/dL Est GFR ( Amer) (> 60) Est GFR (Non-Af Amer) (> 60) BUN/Creatinine Ratio (6-26) Glucose (70-105) mg/dL Calculated Osmolality (280-300) Lactic Acid (0.5-2.2) mmol/L Calcium (8.6-10.3) mg/dL Total Bilirubin (0.3-1.0) mg/dL Direct Bilirubin (0.0-0.2) mg/dL Indirect Bilirubin (0.0-1.2) mg/dL AST (13-39) Units/L ALT (7-52) Units/L Alkaline Phosphatase (34-104) Units/L Troponin I (< 0.04) ng/mL B-Natriuretic Peptide 146 H (Less than 100) pg/mL Serum Total Protein (6.4-8.9) g/dL Albumin (3.5-5.7) g/dL Globulin (2.4-3.5) g/dL Albumin/Globulin Ratio (1.1-2.2) Lipase (11-82) Units/L Ur Specimen Adequacy Urine Color (Yellow) Urine Clarity (Clear) Urine pH (5.0-8.0) pH Units Ur Specific [place] (1.010-1.025) Urine Protein (Neg-Trace) mg/dL Urine Glucose (UA) (Normal) mg/dL Urine Ketones (Negative) mg/dL Urine Blood (Negative) Urine Nitrite (Negative) Urine Bilirubin (Negative) Urine Urobilinogen (Normal) mg/dL Ur Leukocyte Esterase (Negative) Urine Microscopic RBC (0-3) per hpf Urine Microscopic WBC (0-3) per hpf Ur Squamous Epith Cells (None-Few) per lpf Urine Bacteria (None-Few) per hpf Hyaline Casts (None-Few) per lpf Ur Culture Indicated? (NO) 05/07/19 05/07/19 05/07/19 Range/Units 07:55 07:55 08:38 WBC (4.3-11.1) K/mcL RBC (3.82-4.97) M/mcL Hgb (11.5-15.4) g/dL Hct (35.3-44.9) % MCV (83.0-100.0) fL MCH (28.0-33.3) pg MCHC (31.6-35.5) g/dL RDW (11.5-14.5) % Plt Count (140-400) K/mcL MPV (9.4-12.4) fL Immature Gran % (0-4) % Seg Neutrophils % % Lymphocytes % % Monocytes % % Eosinophils % % Basophils % % Neutrophils # (1.6-8.9) K/mcL Lymphocytes # (0.6-4.6) K/mcL Monocytes # (0.0-1.3) K/mcL Eosinophils # (0.0-0.6) K/mcL Basophils # (0.0-0.2) K/mcL PT (9.4-12.1) Seconds INR APTT (26.0-36.0) Seconds Sodium 143 (136-145) mEq/L Potassium 3.4 L (3.5-5.1) mEq/L Chloride 101 (98-107) mEq/L Carbon Dioxide 30 H (23-29) mEq/L BUN 14 (8-23) mg/dL Creatinine 0.66 (0.60-1.20) mg/dL Est GFR ( Amer) > 60 (> 60) Est GFR (Non-Af Amer) > 60 (> 60) BUN/Creatinine Ratio 21 (6-26) Glucose 172 H (70-105) mg/dL Calculated Osmolality 301 H (280-300) Lactic Acid 1.1 (0.5-2.2) mmol/L Calcium 9.4 (8.6-10.3) mg/dL Total Bilirubin 0.7 (0.3-1.0) mg/dL Direct Bilirubin 0.1 (0.0-0.2) mg/dL Indirect Bilirubin 0.6 (0.0-1.2) mg/dL AST 16 (13-39) Units/L ALT 10 (7-52) Units/L Alkaline Phosphatase 84 (34-104) Units/L Troponin I < 0.03 (< 0.04) ng/mL B-Natriuretic Peptide (Less than 100) pg/mL Serum Total Protein 6.4 (6.4-8.9) g/dL Albumin 3.8 (3.5-5.7) g/dL Globulin 2.6 (2.4-3.5) g/dL Albumin/Globulin Ratio 1.5 (1.1-2.2) Lipase < 3 L (11-82) Units/L Ur Specimen Adequacy See below A Urine Color Yellow (Yellow) Urine Clarity Turbid A (Clear) Urine pH 6.0 (5.0-8.0) pH Units Ur Specific [place] 1.020 (1.010-1.025) Urine Protein Trace (Neg-Trace) mg/dL Urine Glucose (UA) Normal (Normal) mg/dL Urine Ketones Negative (Negative) mg/dL Urine Blood Moderate H (Negative) Urine Nitrite Positive A (Negative) Urine Bilirubin Negative (Negative) Urine Urobilinogen Normal (Normal) mg/dL Ur Leukocyte Esterase Large H (Negative) Urine Microscopic RBC 5-15 H (0-3) per hpf Urine Microscopic WBC TNTC H (0-3) per hpf Ur Squamous Epith Cells Many H (None-Few) per lpf Urine Bacteria Many H (None-Few) per hpf Hyaline Casts None Seen (None-Few) per lpf Ur Culture Indicated? YES A (NO) Heart Score - Score History: Highly Suspicious EKG: Normal Age: Greater than 65 Risk Factors: Equal/Greater than 3 risk factor or history of atherosclerotic disease Troponin: Less than normal limit HEART Score Total: 6
--- NOTE | 2019-05-07 09:44 | Emergency Department Note ---
Disposition Clinical Impression: Chest pain Qualifiers: Chest pain type: unspecified Qualified Code(s): R07.9 - Chest pain, unspecified UTI (urinary tract infection) Qualifiers: Urinary tract infection type: site unspecified Hematuria presence: with hematuria Qualified Code(s): N39.0 - Urinary tract infection, site not specified; R31.9 - Hematuria, unspecified Disposition: Admitted As Inpatient Condition: Good Forms: ED Satisfaction Letter Time of Disposition: 09:44 General Adult HPI - General Chief complaint: ED Chest Pain Stated complaint: chest pain Time Seen by Provider: 05/07/19 07:44 Source: patient, EMS Mode of arrival: EMS Limitations: no limitations - History of Present Illness Pain Scale: 0 - Related Data Home Medications Medication Instructions Recorded Confirmed Ferrous Sulfate [Iron] 325 mg PO DAILY 10/23/17 05/07/19 Furosemide [Lasix] 40 mg PO BID 10/23/17 05/07/19 Glimepiride [Amaryl] 2 mg PO DAILY 10/23/17 05/07/19 Metoprolol [Lopressor] 25 mg PO DAILY 10/23/17 05/07/19 Nitroglycerin [Nitrostat] 0.4 mg SL Q5M PRN 10/23/17 05/07/19 Omeprazole [PriLOSEC] 40 mg PO DAILY 10/23/17 05/07/19 Potassium Chloride [K-Tab ER] 20 meq PO DAILY 10/23/17 05/07/19 Simvastatin [Zocor] 20 mg PO HS 10/23/17 05/07/19 ALPRAZolam [Xanax 0.5 MG Tablet] 0.5 mg PO TID PRN 01/29/18 05/07/19 Albuterol Neb [Proventil Neb] 2.5 mg IH TID PRN 01/29/18 05/07/19 Albuterol Sulfate [Proair Hfa] 2 puff IH Q4H PRN 01/29/18 05/07/19 Citalopram Hydrobromide 40 mg PO DAILY 01/29/18 05/07/19 [Citalopram HBr] Multivitamin [One Daily 1 each PO DAILY 01/29/18 05/07/19 Multivitamin] Oxybutynin Chloride [Ditropan Xl] 10 mg PO DAILY 01/29/18 05/07/19 Oxygen 2 l NS HS 01/29/18 05/07/19 Fluticasone Propionate Nasal 1 spray IN PRN PRN 05/07/19 05/07/19 [Flonase] Ranitidine HCl mg PO BID 05/07/19 Warfarin [Coumadin] 2 mg PO DAILY 05/07/19 05/07/19 Previous Rx's Medication Instructions Recorded HYDROcodone/Acet 7.5/325 mg [[place] 0.5 tab PO TID PRN 5 Days #15 02/01/18 7.5-325 mg] tablet Allergies Allergy/AdvReac Type Severity Reaction Status Date / Time Penicillins AdvReac Anaphylaxis Verified 05/07/19 07:50 Constitutional: Denies: fever, chills, weakness Eyes: Denies: vision change ENT ED: Denies: throat pain, dental pain, congestion, dysphagia Cardiovascular: Reports: as per HPI, chest pain. Denies: palpitations, dyspnea on exertion, orthopnea, edema, syncope Respiratory: Denies: cough, dyspnea, wheezes Gastrointestinal: Denies: abdominal pain, nausea, vomiting, diarrhea Genitourinary: Denies: urgency, dysuria, frequency, hematuria Musculoskeletal: Reports: as per HPI, back pain (left flank). 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 - Social History Smoking Status: Never smoker Smokeless Tobacco Status: No Alcohol use: Reports: none Drug use: Reports: none Physical Exam - General Limitations: no limitations General appearance: alert, in no apparent distress Course Vital Signs Temperature 98.3 F 05/07/19 07:46 Pulse Rate 99 05/07/19 07:46 Respiratory Rate 18 05/07/19 07:46 Blood Pressure 125/63 05/07/19 07:46 O2 Sat by Pulse Oximetry 96 05/07/19 07:46 Temperature 98.3 F 05/07/19 07:46 Pulse Rate 89 05/07/19 08:43 Respiratory Rate 18 05/07/19 08:43 Blood Pressure 168/88 05/07/19 08:43 O2 Sat by Pulse Oximetry 96 05/07/19 08:43 Oxygen Delivery Oxygen Delivery Room Air Medical Decision Making - Lab Data Result diagrams: 05/07/19 07:55 05/07/19 07:55 Lab Results 05/07/19 05/07/19 05/07/19 Range/Units 07:55 07:55 07:55 WBC 8.5 (4.3-11.1) K/mcL RBC 4.22 (3.82-4.97) M/mcL Hgb 12.3 (11.5-15.4) g/dL Hct 38.9 (35.3-44.9) % MCV 92.2 (83.0-100.0) fL MCH 29.1 (28.0-33.3) pg MCHC 31.6 (31.6-35.5) g/dL RDW 13.1 (11.5-14.5) % Plt Count 219 (140-400) K/mcL MPV 9.6 (9.4-12.4) fL Immature Gran % 0.4 (0-4) % Seg Neutrophils % 70.9 % Lymphocytes % 17.0 % Monocytes % 10.0 % Eosinophils % 1.1 % Basophils % 0.6 % Neutrophils # 6.0 (1.6-8.9) K/mcL Lymphocytes # 1.4 (0.6-4.6) K/mcL Monocytes # 0.9 (0.0-1.3) K/mcL Eosinophils # 0.1 (0.0-0.6) K/mcL Basophils # 0.1 (0.0-0.2) K/mcL PT 42.5 H (9.4-12.1) Seconds INR 3.7 APTT 48.0 H (26.0-36.0) Seconds Sodium (136-145) mEq/L Potassium (3.5-5.1) mEq/L Chloride (98-107) mEq/L Carbon Dioxide (23-29) mEq/L BUN (8-23) mg/dL Creatinine (0.60-1.20) mg/dL Est GFR ( Amer) (> 60) Est GFR (Non-Af Amer) (> 60) BUN/Creatinine Ratio (6-26) Glucose (70-105) mg/dL Calculated Osmolality (280-300) Lactic Acid (0.5-2.2) mmol/L Calcium (8.6-10.3) mg/dL Total Bilirubin (0.3-1.0) mg/dL Direct Bilirubin (0.0-0.2) mg/dL Indirect Bilirubin (0.0-1.2) mg/dL AST (13-39) Units/L ALT (7-52) Units/L Alkaline Phosphatase (34-104) Units/L Troponin I (< 0.04) ng/mL B-Natriuretic Peptide 146 H (Less than 100) pg/mL Serum Total Protein (6.4-8.9) g/dL Albumin (3.5-5.7) g/dL Globulin (2.4-3.5) g/dL Albumin/Globulin Ratio (1.1-2.2) Lipase (11-82) Units/L Ur Specimen Adequacy Urine Color (Yellow) Urine Clarity (Clear) Urine pH (5.0-8.0) pH Units Ur Specific [place] (1.010-1.025) Urine Protein (Neg-Trace) mg/dL Urine Glucose (UA) (Normal) mg/dL Urine Ketones (Negative) mg/dL Urine Blood (Negative) Urine Nitrite (Negative) Urine Bilirubin (Negative) Urine Urobilinogen (Normal) mg/dL Ur Leukocyte Esterase (Negative) Urine Microscopic RBC (0-3) per hpf Urine Microscopic WBC (0-3) per hpf Ur Squamous Epith Cells (None-Few) per lpf Urine Bacteria (None-Few) per hpf Hyaline Casts (None-Few) per lpf Ur Culture Indicated? (NO) 05/07/19 05/07/19 05/07/19 Range/Units 07:55 07:55 08:38 WBC (4.3-11.1) K/mcL RBC (3.82-4.97) M/mcL Hgb (11.5-15.4) g/dL Hct (35.3-44.9) % MCV (83.0-100.0) fL MCH (28.0-33.3) pg MCHC (31.6-35.5) g/dL RDW (11.5-14.5) % Plt Count (140-400) K/mcL MPV (9.4-12.4) fL Immature Gran % (0-4) % Seg Neutrophils % % Lymphocytes % % Monocytes % % Eosinophils % % Basophils % % Neutrophils # (1.6-8.9) K/mcL Lymphocytes # (0.6-4.6) K/mcL Monocytes # (0.0-1.3) K/mcL Eosinophils # (0.0-0.6) K/mcL Basophils # (0.0-0.2) K/mcL PT (9.4-12.1) Seconds INR APTT (26.0-36.0) Seconds Sodium 143 (136-145) mEq/L Potassium 3.4 L (3.5-5.1) mEq/L Chloride 101 (98-107) mEq/L Carbon Dioxide 30 H (23-29) mEq/L BUN 14 (8-23) mg/dL Creatinine 0.66 (0.60-1.20) mg/dL Est GFR ( Amer) > 60 (> 60) Est GFR (Non-Af Amer) > 60 (> 60) BUN/Creatinine Ratio 21 (6-26) Glucose 172 H (70-105) mg/dL Calculated Osmolality 301 H (280-300) Lactic Acid 1.1 (0.5-2.2) mmol/L Calcium 9.4 (8.6-10.3) mg/dL Total Bilirubin 0.7 (0.3-1.0) mg/dL Direct Bilirubin 0.1 (0.0-0.2) mg/dL Indirect Bilirubin 0.6 (0.0-1.2) mg/dL AST 16 (13-39) Units/L ALT 10 (7-52) Units/L Alkaline Phosphatase 84 (34-104) Units/L Troponin I < 0.03 (< 0.04) ng/mL B-Natriuretic Peptide (Less than 100) pg/mL Serum Total Protein 6.4 (6.4-8.9) g/dL Albumin 3.8 (3.5-5.7) g/dL Globulin 2.6 (2.4-3.5) g/dL Albumin/Globulin Ratio 1.5 (1.1-2.2) Lipase < 3 L (11-82) Units/L Ur Specimen Adequacy See below A Urine Color Yellow (Yellow) Urine Clarity Turbid A (Clear) Urine pH 6.0 (5.0-8.0) pH Units Ur Specific [place] 1.020 (1.010-1.025) Urine Protein Trace (Neg-Trace) mg/dL Urine Glucose (UA) Normal (Normal) mg/dL Urine Ketones Negative (Negative) mg/dL Urine Blood Moderate H (Negative) Urine Nitrite Positive A (Negative) Urine Bilirubin Negative (Negative) Urine Urobilinogen Normal (Normal) mg/dL Ur Leukocyte Esterase Large H (Negative) Urine Microscopic RBC 5-15 H (0-3) per hpf Urine Microscopic WBC TNTC H (0-3) per hpf Ur Squamous Epith Cells Many H (None-Few) per lpf Urine Bacteria Many H (None-Few) per hpf Hyaline Casts None Seen (None-Few) per lpf Ur Culture Indicated? YES A (NO) Attestation Statement - Attestation Attestation: For this encounter, I have reviewed the DESIGN ASSISTANT or PA documentation, treatment plan, and medical decision making; and I have had face to face time with this patient. 61 year old female with history of dementia and CHF presnts to the eD with chest pain and chills. It appears that she has a UTI and the nitro had helped ith her chest pain and it is currently a 2. 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 Paitnet will be treated for UTI and admitted for CP r/o ACS.
[2019-05-07] MEDS ORDERED: Cefepime HCl 1,000 MG in Water for inj. (sterile) 10 ML IVP SCH (10:00)
--- NOTE | 2019-05-07 14:38 | Electrocardiograph Report ---
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
[2019-05-07] MEDS ORDERED: Acetaminophen 325 MG TABLET PO PRN (14:54)
[2019-05-07] MEDS ORDERED: *HR* HYDROcodone/Acet 5/325 mg TABLET PO PRN (14:54)
[2019-05-07] MEDS ORDERED: Naloxone 0.4 MG/ML INJ IVP PRN (14:54)
[2019-05-07] MEDS ORDERED: *HR* HYDROcodone/Acet 7.5/325 mg TABLET PO PRN (15:46)
[2019-05-07] MEDS ORDERED: Nitroglycerin 0.4 MG TAB.SUBL SL PRN (15:46)
[2019-05-07] MEDS ORDERED: ALPRAZolam 0.5 MG TABLET PO PRN (15:46)
--- NOTE | 2019-05-07 15:48 | Internal Med History&Physical ---
Date of Encounter: 05/07/19 Time of Encounter: 15:49 Internal Medicine - H&P: HPI Chief complaint: chest pain and weakness Admitted From: Emergency Dept Plans for Post Hospital Care: Home History of present illness: Ms. Diaz is a 88 year old female with known past medical history of Dementia, diastolic CHF chronic hypoxic respiratory failure on 2 lit oxygen at home, hypertension, hyperlipidemia, CAD status post PCI and CABG, DM2 and Chronic a fib on Coumadin for anti coag pt presented to ER with intermittent CP located sub sternally and radiating to her left side chest wall region. Her CP is sharp pain and relived with SL Nitro. She also c/o feeling weak and lethargic. She denied any SOB. She also mentioned some left flank pain. Past Med Surg Social Fam HX - Past Medical History Medical history: arthritis, asthma, atrial fibrillation, CHF, coronary artery disease, CVA, diabetes, GERD, hyperlipidemia, hypertension, myocardial infarction, TIA, other Additional medical history: bilat knee replacement, basal and squamous cell carcinoma, right shouler shoulder replacement Psychiatric history: no psych history - Past Surgical History Surgical History: coronary bypass (CABG), hysterectomy - Social History Smoking Status: Never smoker Smokeless Tobacco Status: No Alcohol use: none Drug use: none - Family History Father Family Member Ethnicity: Non- Living Status: Age at : 53 Cause of : lung cancer Hx Family Cancer: Yes (Lung) Mother Family Member Ethnicity: Non- Living Status: Age at : 75 Hx Family Cardiac Disorders: Yes Brother Family Member Ethnicity: Non- Living Status: Age at : 60 Cause of : stroke Hx Family Cardiac Disorders: Yes Sister Adopted: No Family Member Ethnicity: Non- Living Status: Age at : 86 Cause of : alzheimers Hx Family Endocrine Disorder: Yes (DM) Hx Family Neurologic Disorders: Yes (Alzheimer's disease) Internal Medicine - H&P: Meds Ferrous Sulfate [Iron] 325 mg PO DAILY 10/23/17 [History] Furosemide [Lasix] 40 mg PO BID 10/23/17 [History] Glimepiride [Amaryl] 2 mg PO DAILY 10/23/17 [History] Metoprolol [Lopressor] 25 mg PO DAILY 10/23/17 [History] Nitroglycerin [Nitrostat] 0.4 mg SL Q5M PRN 12/11/17 [History] Omeprazole [PriLOSEC] 40 mg PO DAILY 10/23/17 [History] Potassium Chloride [K-Tab ER] 20 meq PO DAILY 10/23/17 [History] Simvastatin [Zocor] 20 mg PO HS 10/23/17 [History] ALPRAZolam [Xanax 0.5 MG Tablet] 0.5 mg PO TID PRN 01/29/18 [History] Albuterol Neb [Proventil Neb] 2.5 mg IH TID PRN 01/29/18 [History] Albuterol Sulfate [Proair Hfa] 2 puff IH Q4H PRN 01/29/18 [History] Citalopram Hydrobromide [Citalopram HBr] 40 mg PO DAILY 01/29/18 [History] Multivitamin [One Daily Multivitamin] 1 each PO DAILY 01/29/18 [History] Oxybutynin Chloride [Ditropan Xl] 10 mg PO DAILY 01/29/18 [History] Oxygen 2 l NS HS 01/29/18 [History] HYDROcodone/Acet 7.5/325 mg [[place] 7.5-325 mg] 0.5 tab PO TID PRN 5 Days #15 tablet 02/01/18 [Rx] Fluticasone Propionate Nasal [Flonase] 1 spray IN PRN PRN 05/07/19 [History] Ranitidine HCl mg PO BID 05/07/19 [History] Warfarin [Coumadin] 2 mg PO DAILY 05/07/19 [History] Allergy/AdvReac Type Severity Reaction Status Date / Time Penicillins AdvReac Anaphylaxis Verified 05/07/19 07:50 All Systems PM: A 10-system review of systems was performed and is negative for pertinent fi ndings except as documented above in the HPI. Review of systems: All the systems are reviewed everything is benign except the systems and symptoms I mentioned in the history of present illness - Constitutional Vitals: Temp Pulse Resp BP Pulse Ox 98.1 F 83 18 131/84 93 05/07/19 13:08 05/07/19 13:08 05/07/19 13:08 05/07/19 13:08 05/07/19 13:08 General appearance: Present: A&O X 3, no acute distress, answers questions appropriately Exam: a - Head Head exam: Present: atraumatic, normal inspection - Neck Neck exam general surgery: Present: supple - Respiratory Respiratory exam: Present: decreased breath sounds. Absent: rales, respiratory distress, rhonchi, wheezes - Cardiovascular Cardiovascular exam: Present: RRR, +S1, +S2. Absent: tachycardia - GI/Abdominal GI/Abdominal exam: Present: normal bowel sounds, soft. Absent: rebound, rigid, tenderness - Extremities Exam Extremities exam: Present: normal inspection. Absent: calf tenderness, pedal edema, tenderness - Back Exam Back exam: Absent: CVA tenderness (L), CVA tenderness (R) - Neurological Exam Neurological exam: Present: alert, oriented X3, strengths equal and symetr thr oughout. Absent: facial droop, speech deficit - Psychiatric Psychiatric exam: Present: normal affect, normal mood Internal Med - H&P Results - Labs CBC & Chem 7: 05/07/19 07:55 05/07/19 07:55 Labs: Short CBC 05/07/19 Range/Units 07:55 WBC 8.5 (4.3-11.1) K/mcL Hgb 12.3 (11.5-15.4) g/dL Hct 38.9 (35.3-44.9) % Plt Count 219 (140-400) K/mcL Neutrophils # 6.0 (1.6-8.9) K/mcL BMP 05/07/19 07:55 Sodium 143 Potassium 3.4 L Chloride 101 Carbon Dioxide 30 H BUN 14 Creatinine 0.66 Glucose 172 H Calcium 9.4 Cardiac Enzymes 05/07/19 Range/Units 07:55 Troponin I < 0.03 (< 0.04) ng/mL Liver Function 05/07/19 Range/Units 07:55 Total Bilirubin 0.7 (0.3-1.0) mg/dL Direct Bilirubin 0.1 (0.0-0.2) mg/dL AST 16 (13-39) Units/L ALT 10 (7-52) Units/L Alkaline Phosphatase 84 (34-104) Units/L Albumin 3.8 (3.5-5.7) g/dL Urine 05/07/19 Range/Units 08:38 Urine Color Yellow (Yellow) Urine Clarity Turbid A (Clear) Urine pH 6.0 (5.0-8.0) pH Units Ur Specific [place] 1.020 (1.010-1.025) Urine Protein Trace (Neg-Trace) mg/dL Urine Glucose (UA) Normal (Normal) mg/dL - Impressions ITS Impressions Chest X-Ray 05/07/19 07:44 IMPRESSION: Congestive heart failure. D/ / Nancy Cosby MD / Nancy Cosby MD Interpreting Provider: Nancy Cosby MD - Assessment and Plan (1) Chest pain Current Visit: Yes Status: Acute Assessment and plan: Will admit the pt into Tele for observation Will place pt on diagnostic cardiac sonographer check serial troponin so far negative troponin EKG reviewed- Afib, HR @ 97, No acute ST , T changes noticed Started on ASA, Nitro PRN for pain Resumed home med Metoprolol and Statin Will check FLP in AM Will get stress test in AM since pt is high risk for ACS Pt requested for DNR / DNI code status Qualifiers: Chest pain type: unspecified Qualified Code(s): R07.9 - Chest pain, unspecified (2) UTI (urinary tract infection) Current Visit: Yes Status: Acute Assessment and plan: Her UA is abnormal concerning for UTI started on IV Rocephin Qualifiers: Urinary tract infection type: site unspecified Hematuria presence: with hematuria Qualified Code(s): N39.0 - Urinary tract infection, site not specified; R31.9 - Hematuria, unspecified (3) CAD (coronary artery disease) Current Visit: No Status: Chronic Assessment and plan: CAD s/p CABG resumed all home meds Will f/u on stress test Qualifiers: Coronary Disease-Associated Artery/Lesion type: unspecified vessel or lesion type [place] vs. transplanted heart: [place] heart Associated angina: angina presence unspecified Qualified Code(s): I25.10 - Atherosclerotic heart disease of [place] coronary artery without angina pectoris (4) Atrial fibrillation Current Visit: No Status: Chronic Assessment and plan: Chronic Afib rate controlled cont home med Metoprolol on Coumadin for anti coag Qualifiers: Atrial fibrillation type: chronic Qualified Code(s): I48.2 - Chronic atrial fibrillation (5) Diabetes Current Visit: No Status: Chronic Assessment and plan: ADA diet on ISS Qualifiers: Diabetes mellitus type: type 2 Diabetes mellitus nursing home insulin use: without termite control technician use Diabetes mellitus complication status: without complication Qualified Code(s): E11.9 - Type 2 diabetes mellitus without complications (6) GERD (gastroesophageal reflux disease) Current Visit: No Status: Chronic Assessment and plan: on PPI Qualifiers: Esophagitis presence: esophagitis presence not specified Qualified Code(s): K21.9 - Gastro-esophageal reflux disease without esophagitis (7) HLD (hyperlipidemia) Current Visit: No Status: Chronic Qualifiers: Hyperlipidemia type: pure hypercholesterolemia Qualified Code(s): E78.00 - Pure hypercholesterolemia, unspecified; E78.0 - Pure hypercholesterolemia (8) HTN (hypertension) Current Visit: No Status: Chronic Assessment and plan: Resumed all home meds stable BP for now Qualifiers: Hypertension type: essential hypertension Qualified Code(s): I10 - Essential (primary) hypertension - Time Spent With Patient Total time spent is greater than 50% in coordination of care (as documented) at patient's floor/unit and/or counseling patient:
[2019-05-07] MEDS ORDERED: Warfarin perPT PO PRN (18:00)
[2019-05-07] MEDS ORDERED: NON-FORMULARY MEDICATION 1 EACH EACH (Oxygen 2 L) NS SCH (21:00)
[2019-05-07] MEDS: Insulin LISPRO 300 UNITS/3 ML VIAL SQ SCH (21:01)
[2019-05-08 06:14] LABS: Hematocrit 38.5 % (35.3-44.9); Hemoglobin 12.3 g/dL (11.5-15.4); Mean Corpuscular HGB Conc 31.9 g/dL (31.6-35.5); Mean Corpuscular Hemoglobin 29.2 pg (28.0-33.3); Mean Corpuscular Volume 91.4 fL (83.0-100.0); Mean Platelet Volume 9.8 fL (9.4-12.4); Platelet Count 220 K/mcL (140-400); Red Blood Count 4.21 M/mcL (3.82-4.97); Red Cell Distribution Width 13.2 % (11.5-14.5); White Blood Count 7.5 K/mcL (4.3-11.1)
[2019-05-08] MEDS ORDERED: Regadenoson 0.4 MG/5 ML SYRINGE IVP ONE (06:22)
[2019-05-08 06:25] LABS: INR 2.6; Prothrombin Time 29.6 Seconds (9.4-12.1)
[2019-05-08 06:32] LABS: BUN/Creatinine Ratio 21 (6-26); Blood Urea Nitrogen 14 mg/dL (8-23); Calcium 9.2 mg/dL (8.6-10.3); Carbon Dioxide 28 mEq/L (23-29); Chloride 103 mEq/L (98-107); Chol/HDL Ratio 3.4 (0-4.9); Cholesterol 148 mg/dL (< 200); Glucose 158 mg/dL (70-105); HDL Cholesterol 44 mg/dL (40-59); LDL Cholesterol,Calculated 82 mg/dL (0-99); Osmolality,Calculated 298 (280-300); Potassium 3.5 mEq/L (3.5-5.1); Sodium 142 mEq/L (136-145); Triglycerides 112 mg/dL (< 150); eGFR For African Americans > 60 (> 60); eGFR For Non-African Americans > 60 (> 60)
[2019-05-08] MEDS ORDERED: *HR* Warfarin 2 MG TABLET PO SCH (09:00)
[2019-05-08] MEDS: Multivit/Ca/Min/Fe/FA 1 TAB TABLET PO SCH (09:20)
[2019-05-08] MEDS: Insulin LISPRO 300 UNITS/3 ML VIAL SQ SCH ×4 (09:20→20:06)
[2019-05-08] MEDS: cefTRIAXone 1,000 MG in Water for inj. (sterile) 10 ML IVP SCH (09:21)
[2019-05-08] MEDS: Ondansetron 4 MG/2 ML VIAL IVP PRN (13:59)
--- NOTE | 2019-05-08 15:04 | Internal Med Progress Note ---
Hospitalist Progress Note - Encounter Date of Encounter: 05/08/19 Time of Encounter: 14:56 - Subjective Interval History: Pt's daughter at bedside. She states she is on the hospital board. Pt states she is SOB but pulse oximetry reading 97% on room air. Daughter state when she does this at home she puts her on oxygen and she is fine after that. Daughter states pt is on home oxygen at 2L [place] night time only. Daughter initially hesitant about pt getting medication for anxiety but then states okay to give small dose of ativan if pt gets anxious. Daughter states pt has xanax at home but they avoid giving it to her so she does not become drowsy. - Exam Vitals: Temp Pulse Resp BP Pulse Ox 97.5 F L 94 16 124/81 98 05/08/19 10:18 05/08/19 10:18 05/08/19 10:18 05/08/19 10:18 05/08/19 10:18 Exam: General appearance: Present: A&O X 3, no acute distress, answers questions appropriately Exam: Head exam: Present: atraumatic, normal inspection Neck exam general surgery: Present: supple Respiratory exam: Present: decreased breath sounds. Absent: rales, respiratory distress, rhonchi, wheezes Cardiovascular exam: Present: RRR, +S1, +S2. Absent: tachycardia GI/Abdominal exam: Present: normal bowel sounds, soft. Absent: rebound, rigid, tenderness Extremities exam: Present: normal inspection. Absent: calf tenderness, pedal edema, tenderness Back exam: Absent: CVA tenderness (L), CVA tenderness (R) Neurological exam: Present: alert, oriented X3, strengths equal and symmetrical throughout. Absent: facial droop, speech deficit Psychiatric exam: Present: normal affect, normal mood - Assessment and Plan (1) Chest pain Current Visit: Yes Status: Acute Assessment and Plan: Will continue to monitor on telemetry. Troponin <0.03 x 3 EKG reviewed- Afib, HR @ 97, No acute ST , T changes noticed On ASA, Nitro PRN for pain. Resumed home med Metoprolol and Statin FLP reviewed and wnl pt had 1st part of her stress test this AM and second part in am. Pt requested for DNR / DNI code status (2) Atrial fibrillation Current Visit: No Status: Chronic Assessment and Plan: Chronic Afib rate controlled cont home med Metoprolol on Coumadin for anti coag (3) CAD (coronary artery disease) Current Visit: No Status: Chronic Assessment and Plan: CAD s/p CABG resumed all home meds Will f/u on stress test (4) GERD (gastroesophageal reflux disease) Current Visit: No Status: Chronic Assessment and Plan: on PPI (5) HTN (hypertension) Current Visit: No Status: Chronic Assessment and Plan: Stable BP on Metoprolol (6) HLD (hyperlipidemia) Current Visit: No Status: Chronic Assessment and Plan: Zocor (7) UTI (urinary tract infection) Current Visit: Yes Status: Acute Assessment and Plan: Her UA is abnormal concerning for UTI started on IV Rocephin. Urine culture showing gram neg katharine (8) Diabetes Current Visit: No Status: Chronic Assessment and Plan: ADA diet. On ISS. Will add Levemir 5 units QHS DVT Prophylaxis: Warfarin - Summary of Assessment and Plan Summary of Assessment and Plan: History of present illness: Ms. Diaz is a 88 year old female with known past medical history of Dementia, diastolic CHF chronic hypoxic respiratory failure on 2 lit oxygen at home, hypertension, hyperlipidemia, CAD status post PCI and CABG, DM2 and Chronic a fib on Coumadin for anti coag pt presented to ER with intermittent CP located sub sternally and radiating to her left side chest wall region. Her CP is sharp pain and relived with SL Nitro. She also c/o feeling weak and lethargic. She denied any SOB. She also mentioned some left flank pain. - Time Spent with Patient Total time spent is greater than 50% in coordination of care (as documented) at patient's floor/unit and/or counseling patient: less than 15 minutes Plan of Care Discussed with: patient Internal Medicine: Result - Labs CBC & Chem 7: 05/08/19 05:35 05/08/19 05:35 Labs: Short CBC 05/08/19 Range/Units 05:35 WBC 7.5 (4.3-11.1) K/mcL Hgb 12.3 (11.5-15.4) g/dL Hct 38.5 (35.3-44.9) % Plt Count 220 (140-400) K/mcL BMP 05/08/19 05:35 Sodium 142 Potassium 3.5 Chloride 103 Carbon Dioxide 28 BUN 14 Creatinine 0.67 Glucose 158 H Calcium 9.2 Cardiac Enzymes 05/07/19 05/07/19 Range/Units 17:00 22:36 Troponin I < 0.03 < 0.03 (< 0.04) ng/mL - ABG Interpretation ABG results: PT/INR, D-dimer PT 29.6 Seconds (9.4-12.1) H 05/08/19 05:35 Consult Discharge Plan - Plan Referrals: Virginia Diaz, COMPLIANCE CONSULTANT [Primary Care Provider] - (1) Chest pain Qualifiers: Chest pain type: unspecified Qualified Code(s): R07.9 - Chest pain, unspecified (2) Atrial fibrillation Qualifiers: Atrial fibrillation type: chronic Qualified Code(s): I48.2 - Chronic atrial fibrillation (3) CAD (coronary artery disease) Qualifiers: Coronary Disease-Associated Artery/Lesion type: unspecified vessel or lesion type [place] vs. transplanted heart: [place] heart Associated angina: angina presence unspecified Qualified Code(s): I25.10 - Atherosclerotic heart disease of [place] coronary artery without angina pectoris (4) GERD (gastroesophageal reflux disease) Qualifiers: Esophagitis presence: esophagitis presence not specified Qualified Code(s): K21.9 - Gastro-esophageal reflux disease without esophagitis (5) HTN (hypertension) Qualifiers: Hypertension type: essential hypertension Qualified Code(s): I10 - Essential (primary) hypertension (6) HLD (hyperlipidemia) Qualifiers: Hyperlipidemia type: pure hypercholesterolemia Qualified Code(s): E78.00 - Pure hypercholesterolemia, unspecified; E78.0 - Pure hypercholesterolemia (7) UTI (urinary tract infection) Qualifiers: Urinary tract infection type: site unspecified Hematuria presence: with hematuria Qualified Code(s): N39.0 - Urinary tract infection, site not specified; R31.9 - Hematuria, unspecified (8) Diabetes Qualifiers: Diabetes mellitus type: type 2 Diabetes mellitus technician terminal and repeater insulin use: without technician terminal and repeater use Diabetes mellitus complication status: without complication Qualified Code(s): E11.9 - Type 2 diabetes mellitus without complications
[2019-05-08] MEDS ORDERED: *HR* Warfarin 2 MG TABLET PO ONE (18:00)
[2019-05-08] MEDS: Insulin DETEMIR 100 UNIT/ML X5UNITS SQ SCH (20:09)
[2019-05-09 03:25] LABS: INR 2.1; Prothrombin Time 24.4 Seconds (9.4-12.1)
[2019-05-09] MEDS: Multivit/Ca/Min/Fe/FA 1 TAB TABLET PO SCH (08:33)
[2019-05-09] MEDS: cefTRIAXone 1,000 MG in Water for inj. (sterile) 10 ML IVP SCH (08:34)
[2019-05-09] MEDS: Insulin LISPRO 300 UNITS/3 ML VIAL SQ SCH ×4 (11:33→21:22)
--- NOTE | 2019-05-09 13:15 | Internal Med Progress Note ---
Hospitalist Progress Note - Encounter Date of Encounter: 05/09/19 Time of Encounter: 13:24 - Subjective Interval History: Pt's daughter requested she get ativan this am. She states she was concerned pt may have been a bit anxious this morning. Pt is prescribed ativan 0.5 mg TID PRN. Pt states she feels drowsy this am. She is alert and verbal. She does have underlying dementia so responses to questions are not always appropriate. She denies chest pain, or SOB. Has been afebrile. - Exam Vitals: Temp Pulse Resp BP Pulse Ox 98.3 F 95 18 133/78 99 05/09/19 10:59 05/09/19 10:59 05/09/19 10:59 05/09/19 10:59 05/09/19 10:59 Exam: General appearance: Present: A&O X 3, no acute distress, answers questions appropriately Exam: Head exam: Present: atraumatic, normal inspection Neck exam general surgery: Present: supple Respiratory exam: Present: decreased breath sounds. Absent: rales, respiratory distress, rhonchi, wheezes Cardiovascular exam: Present: RRR, +S1, +S2. Absent: tachycardia GI/Abdominal exam: Present: normal bowel sounds, soft. Absent: rebound, rigid, tenderness Extremities exam: Present: normal inspection. Absent: calf tenderness, pedal edema, tenderness Back exam: Absent: CVA tenderness (L), CVA tenderness (R) Neurological exam: Present: alert, oriented X3, strengths equal and symmetrical throughout. Absent: facial droop, speech deficit Psychiatric exam: Present: normal affect, normal mood - Assessment and Plan (1) Acute cystitis with hematuria Current Visit: Yes Status: Acute Assessment and Plan: Her UA was abnormal on admission Concerning for UTI Started on IV Rocephin due to urine culture showing gram neg katharine. Culture results showing ESBL. Pt started on Ertapenem 05/09/19 and Rocephin discontinued. Isolation precaution (2) Chest pain Current Visit: Yes Status: Acute Assessment and Plan: Will continue to monitor on telemetry. Troponin <0.03 x 3 EKG reviewed- Afib, HR @ 97, No acute ST , T changes noticed On ASA, Nitro PRN for pain. Resumed home med Metoprolol and Statin FLP reviewed and wnl pt's stress test was unremarkable. Pt requested for DNR CCA/ DNI code status (3) Atrial fibrillation Current Visit: No Status: Chronic Assessment and Plan: Chronic Afib rate controlled cont home med Metoprolol On Coumadin for anti coag (4) CAD (coronary artery disease) Current Visit: No Status: Chronic Assessment and Plan: CAD s/p CABG resumed all home meds Stress test reviewed and negative (5) GERD (gastroesophageal reflux disease) Current Visit: No Status: Chronic Assessment and Plan: on Omeprazole (6) HTN (hypertension) Current Visit: No Status: Chronic Assessment and Plan: Stable BP on Metoprolol (7) HLD (hyperlipidemia) Current Visit: No Status: Chronic Assessment and Plan: Zocor (8) Diabetes Current Visit: No Status: Chronic Assessment and Plan: ADA diet. On ISS. Will add Levemir 5 units QHS DVT Prophylaxis: Coumadin - Summary of Assessment and Plan Summary of Assessment and Plan: History of present illness: Dr. Groves Ms. Diaz is a 88 year old female with known past medical history of Dementia, diastolic CHF chronic hypoxic respiratory failure on 2 lit oxygen at home, hypertension, hyperlipidemia, CAD status post PCI and CABG, DM2 and Chronic a fib on Coumadin for anti coag pt presented to ER with intermittent CP located sub sternally and radiating to her left side chest wall region. Her CP is sharp pain and relived with SL Nitro. She also c/o feeling weak and lethargic. She denied any SOB. She also mentioned some left flank pain. - Time Spent with Patient Total time spent is greater than 50% in coordination of care (as documented) at patient's floor/unit and/or counseling patient: less than 15 minutes Plan of Care Discussed with: family Internal Medicine: Result - Labs CBC & Chem 7: 05/08/19 05:35 05/08/19 05:35 - ABG Interpretation ABG results: PT/INR, D-dimer PT 24.4 Seconds (9.4-12.1) H 05/09/19 02:38 - Impressions Impressions Echocardiogram 05/08/19 16:44 Impressions: LVEF 50-55%. Atypical septal motion consistent with post-operative status. Indeterminate diastolic function. Right ventricular size is not optimally visualized. Systolic function is low normal by Doppler. Bi-atrial enlargement. Mild-moderate mitral regurgitation. Mild tricuspid regurgitation. Mild pulmonary hypertension. Left Ventricular Wall Motion: Rest Echo Findings All wall segments showed normal motion. Findings: Study Quality * Technically adequate exam. ECG Findings * Atrial fibrillation/flutter. Left Ventricle * LVEF 50-55%. * Atypical septal motion consistent with post-operative status. * Indeterminate diastolic function. Right Ventricle * Right ventricular size is not optimally visualized. Systolic function is low normal by Doppler. Left Atrium * Moderately dilated left atrium. Right Atrium * Moderately dilated right atrium. Aortic Valve * No aortic regurgitation. * No aortic stenosis. * Trileaflet aortic valve. Mitral Valve * Normal mitral valve structure. * No mitral stenosis. * Mild-moderate mitral regurgitation. Tricuspid Valve * Tricuspid valve not well visualized. * Mild tricuspid regurgitation. * Estimated RA pressure is 8 mmHg. * Estimated RVSP is 39 mmHg. * Mild pulmonary hypertension. Pulmonic Valve * Pulmonic valve is not well visualized. * No pulmonic stenosis. * No pulmonic regurgitation. Pulmonary Artery * Pulmonary artery not well visualized. Aorta * Normally sized aortic root. Pericardium * There is no pericardial effusion present. Interatrial Septum * No evidence of PFO by color Doppler. IVC * The IVC is not dilated. * < 50% respiratory change. Consult Discharge Plan - Plan Referrals: Virginia Diaz, VIRTUAL ASSISTANT [Primary Care Provider] - (2) Chest pain Qualifiers: Chest pain type: unspecified Qualified Code(s): R07.9 - Chest pain, unspecified (3) Atrial fibrillation Qualifiers: Atrial fibrillation type: chronic Qualified Code(s): I48.2 - Chronic atrial fibrillation (4) CAD (coronary artery disease) Qualifiers: Coronary Disease-Associated Artery/Lesion type: unspecified vessel or lesion type [place] vs. transplanted heart: [place] heart Associated angina: angina presence unspecified Qualified Code(s): I25.10 - Atherosclerotic heart disease of [place] coronary artery without angina pectoris (5) GERD (gastroesophageal reflux disease) Qualifiers: Esophagitis presence: esophagitis presence not specified Qualified Code(s): K21.9 - Gastro-esophageal reflux disease without esophagitis (6) HTN (hypertension) Qualifiers: Hypertension type: essential hypertension Qualified Code(s): I10 - Essential (primary) hypertension (7) HLD (hyperlipidemia) Qualifiers: Hyperlipidemia type: pure hypercholesterolemia Qualified Code(s): E78.00 - Pure hypercholesterolemia, unspecified; E78.0 - Pure hypercholesterolemia (8) Diabetes Qualifiers: Diabetes mellitus type: type 2 Diabetes mellitus instant printer operator insulin use: without instant printer operator use Diabetes mellitus complication status: without complication Qualified Code(s): E11.9 - Type 2 diabetes mellitus without complications
[2019-05-09] MEDS: Ertapenem 1,000 MG in 0.9 % Sodium Chloride Mini Bag 100 ML IVPB SCH (15:03)
[2019-05-09 15:07] LABS: Basophils # 0.1 K/mcL (0.0-0.2); Basophils % 0.6 %; Eosinophils # 0.1 K/mcL (0.0-0.6); Eosinophils % 0.9 %; Hematocrit 38.2 % (35.3-44.9); Hemoglobin 12.4 g/dL (11.5-15.4); Immature Granulocytes % 0.8 % (0-4); Lymphocytes # 1.3 K/mcL (0.6-4.6); Lymphocytes % 12.8 %; Mean Corpuscular HGB Conc 32.5 g/dL (31.6-35.5); Mean Corpuscular Hemoglobin 29.9 pg (28.0-33.3); Mean Platelet Volume 9.8 fL (9.4-12.4); Monocytes % 9.2 %; Neutrophils # 7.9 K/mcL (1.6-8.9); Platelet Count 238 K/mcL (140-400); Red Blood Count 4.15 M/mcL (3.82-4.97); Red Cell Distribution Width 13.2 % (11.5-14.5); Segmented Neutrophils % 75.7 %; White Blood Count 10.4 K/mcL (4.3-11.1)
[2019-05-09 15:18] LABS: BUN/Creatinine Ratio 20 (6-26); Blood Urea Nitrogen 16 mg/dL (8-23); Calcium 9.5 mg/dL (8.6-10.3); Carbon Dioxide 28 mEq/L (23-29); Chloride 104 mEq/L (98-107); Glucose 154 mg/dL (70-105); Osmolality,Calculated 294 (280-300); Phosphorous 3.7 mg/dL (2.7-4.5); Potassium 4.3 mEq/L (3.5-5.1); Sodium 140 mEq/L (136-145); eGFR For African Americans > 60 (> 60); eGFR For Non-African Americans > 60 (> 60)
[2019-05-09] MEDS ORDERED: *HR* Warfarin 2 MG TABLET PO ONE (18:00)
[2019-05-09] MEDS: Insulin DETEMIR 100 UNIT/ML X5UNITS SQ SCH (21:23)
[2019-05-10 06:32] LABS: INR 2.1
--- NOTE | 2019-05-10 08:15 | Internal Med Progress Note ---
Hospitalist Progress Note - Encounter Date of Encounter: 05/10/19 Time of Encounter: 08:14 - Subjective Interval History: Pt denies fever, chills, N/V or diarrhea. She denies chest pain or SOB. She denies constipation. She is up in bed eating her breakfast. - Exam Vitals: Temp Pulse Resp BP Pulse Ox 97.8 F 108 17 117/70 92 05/10/19 03:47 05/10/19 03:47 05/10/19 03:47 05/10/19 03:47 05/10/19 03:47 Exam: General appearance: Present: A&O X 3, no acute distress, answers questions appropriately Exam: Head exam: Present: atraumatic, normal inspection Neck exam general surgery: Present: supple Respiratory exam: Present: decreased breath sounds. Absent: rales, respiratory distress, rhonchi, wheezes Cardiovascular exam: Present: RRR, +S1, +S2. Absent: tachycardia GI/Abdominal exam: Present: normal bowel sounds, soft. Absent: rebound, rigid, tenderness Extremities exam: Present: normal inspection. Absent: calf tenderness, pedal edema, tenderness Back exam: Absent: CVA tenderness (L), CVA tenderness (R) Neurological exam: Present: alert, oriented X3, strengths equal and symmetrical throughout. Absent: facial droop, speech deficit Psychiatric exam: Present: normal affect, normal mood - Assessment and Plan (1) Acute cystitis with hematuria Current Visit: Yes Status: Acute Assessment and Plan: Her UA was abnormal on admission Concerning for UTI Started on IV Rocephin due to urine culture showing gram neg katharine. Culture results showing ESBL. Pt started on Ertapenem 05/09/19 and Rocephin discontinued. Isolation precaution. Plan is to continue Ertapenem till Monday and give one time dose Fos on Monday. Orders in the computer (2) Chest pain Current Visit: Yes Status: Acute Assessment and Plan: Will continue to monitor on telemetry. Troponin <0.03 x 3 Echo unremarkable EKG reviewed- Afib, HR @ 97, No acute ST , T changes noticed On ASA, Nitro PRN for pain. Resumed home med Metoprolol and statin FLP reviewed and wnl. Pt's stress test was unremarkable. Pt requested for DNR CCA/ DNI code status (3) Atrial fibrillation Current Visit: No Status: Chronic Assessment and Plan: Chronic Afib rate controlled cont home med Metoprolol On Coumadin for anti coag (4) CAD (coronary artery disease) Current Visit: No Status: Chronic Assessment and Plan: CAD s/p CABG resumed all home meds Stress test reviewed and negative (5) GERD (gastroesophageal reflux disease) Current Visit: No Status: Chronic Assessment and Plan: on Omeprazole (6) HTN (hypertension) Current Visit: No Status: Chronic Assessment and Plan: Stable BP on Metoprolol (7) HLD (hyperlipidemia) Current Visit: No Status: Chronic Assessment and Plan: Zocor (8) Diabetes Current Visit: No Status: Chronic Assessment and Plan: ADA diet. On ISS. Will add Levemir 5 units QHS DVT Prophylaxis: Coumadin - Summary of Assessment and Plan Summary of Assessment and Plan: History of present illness: Dr. Groves Ms. Diaz is a 88 year old female with known past medical history of Dementia, diastolic CHF chronic hypoxic respiratory failure on 2 lit oxygen at home, hypertension, hyperlipidemia, CAD status post PCI and CABG, DM2 and Chronic a fib on Coumadin for anti coag pt presented to ER with intermittent CP located sub sternally and radiating to her left side chest wall region. Her CP is sharp pain and relived with SL Nitro. She also c/o feeling weak and lethargic. She denied any SOB. She also mentioned some left flank pain. - Time Spent with Patient Total time spent is greater than 50% in coordination of care (as documented) at patient's floor/unit and/or counseling patient: less than 15 minutes Plan of Care Discussed with: patient Internal Medicine: Result - Labs CBC & Chem 7: 05/09/19 13:28 05/09/19 14:45 Labs: Short CBC 05/09/19 Range/Units 13:28 WBC 10.4 (4.3-11.1) K/mcL Hgb 12.4 (11.5-15.4) g/dL Hct 38.2 (35.3-44.9) % Plt Count 238 (140-400) K/mcL Neutrophils # 7.9 (1.6-8.9) K/mcL BMP 05/09/19 14:45 Sodium 140 Potassium 4.3 Chloride 104 Carbon Dioxide 28 BUN 16 Creatinine 0.79 Glucose 154 H Calcium 9.5 Liver Function 05/09/19 Range/Units 14:45 Albumin 4.0 (3.5-5.7) g/dL - ABG Interpretation ABG results: PT/INR, D-dimer PT 24.0 Seconds (9.4-12.1) H 05/10/19 05:44 - Impressions Impressions Echocardiogram 05/08/19 16:44 Impressions: LVEF 50-55%. Atypical septal motion consistent with post-operative status. Indeterminate diastolic function. Right ventricular size is not optimally visualized. Systolic function is low normal by Doppler. Bi-atrial enlargement. Mild-moderate mitral regurgitation. Mild tricuspid regurgitation. Mild pulmonary hypertension. Left Ventricular Wall Motion: Rest Echo Findings All wall segments showed normal motion. Findings: Study Quality * Technically adequate exam. ECG Findings * Atrial fibrillation/flutter. Left Ventricle * LVEF 50-55%. * Atypical septal motion consistent with post-operative status. * Indeterminate diastolic function. Right Ventricle * Right ventricular size is not optimally visualized. Systolic function is low normal by Doppler. Left Atrium * Moderately dilated left atrium. Right Atrium * Moderately dilated right atrium. Aortic Valve * No aortic regurgitation. * No aortic stenosis. * Trileaflet aortic valve. Mitral Valve * Normal mitral valve structure. * No mitral stenosis. * Mild-moderate mitral regurgitation. Tricuspid Valve * Tricuspid valve not well visualized. * Mild tricuspid regurgitation. * Estimated RA pressure is 8 mmHg. * Estimated RVSP is 39 mmHg. * Mild pulmonary hypertension. Pulmonic Valve * Pulmonic valve is not well visualized. * No pulmonic stenosis. * No pulmonic regurgitation. Pulmonary Artery * Pulmonary artery not well visualized. Aorta * Normally sized aortic root. Pericardium * There is no pericardial effusion present. Interatrial Septum * No evidence of PFO by color Doppler. IVC * The IVC is not dilated. * < 50% respiratory change. Consult Discharge Plan - Plan Referrals: Virginia Diaz, BRICK TESTER [Primary Care Provider] - Prescriptions: Ertapenem [INVanz] 1,000 mg IVPB DAILY 5 Days #5 vial (2) Chest pain Qualifiers: Chest pain type: unspecified Qualified Code(s): R07.9 - Chest pain, u nspecified (3) Atrial fibrillation Qualifiers: Atrial fibrillation type: chronic Qualified Code(s): I48.2 - Chronic atrial fibrillation (4) CAD (coronary artery disease) Qualifiers: Coronary Disease-Associated Artery/Lesion type: unspecified vessel or lesion type [place] vs. transplanted heart: [place] heart Associated angina: angina presence unspecified Qualified Code(s): I25.10 - Atherosclerotic heart disease of [place] coronary artery without angina pectoris (5) GERD (gastroesophageal reflux disease) Qualifiers: Esophagitis presence: esophagitis presence not specified Qualified Code(s): K21.9 - Gastro-esophageal reflux disease without esophagitis (6) HTN (hypertension) Qualifiers: Hypertension type: essential hypertension Qualified Code(s): I10 - Essential (primary) hypertension (7) HLD (hyperlipidemia) Qualifiers: Hyperlipidemia type: pure hypercholesterolemia Qualified Code(s): E78.00 - Pure hypercholesterolemia, unspecified; E78.0 - Pure hypercholesterolemia (8) Diabetes Qualifiers: Diabetes mellitus type: type 2 Diabetes mellitus [facility] insulin use: without [facility] use Diabetes mellitus complication status: without complication Qualified Code(s): E11.9 - Type 2 diabetes mellitus without complications
[2019-05-10] MEDS: Insulin LISPRO 300 UNITS/3 ML VIAL SQ SCH ×4 (08:26→20:52)
[2019-05-10] MEDS: Ertapenem 1,000 MG in 0.9 % Sodium Chloride Mini Bag 100 ML IVPB SCH (08:27)
[2019-05-10] MEDS: Multivit/Ca/Min/Fe/FA 1 TAB TABLET PO SCH (08:27)
[2019-05-10] MEDS ORDERED: ALPRAZolam 0.25 MG TABLET PO PRN (10:54)
[2019-05-10] MEDS: *HR* Warfarin 2 MG TABLET PO SCH (18:45)
[2019-05-10] MEDS: Insulin DETEMIR 100 UNIT/ML X5UNITS SQ SCH (20:56)
[2019-05-11 07:30] LABS: Prothrombin Time 22.7 Seconds (9.4-12.1)
[2019-05-11 07:59] LABS: BUN/Creatinine Ratio 23 (6-26); Blood Urea Nitrogen 16 mg/dL (8-23); Calcium 9.1 mg/dL (8.6-10.3); Carbon Dioxide 27 mEq/L (23-29); Chloride 101 mEq/L (98-107); Glucose 125 mg/dL (70-105); Osmolality,Calculated 291 (280-300); Sodium 139 mEq/L (136-145); eGFR For African Americans > 60 (> 60); eGFR For Non-African Americans > 60 (> 60)
[2019-05-11 08:08] LABS: Basophils # 0.1 K/mcL (0.0-0.2); Basophils % 0.6 %; Eosinophils # 0.2 K/mcL (0.0-0.6); Eosinophils % 1.2 %; Hematocrit 38.7 % (35.3-44.9); Hemoglobin 12.2 g/dL (11.5-15.4); Immature Granulocytes % 0.5 % (0-4); Lymphocytes # 1.6 K/mcL (0.6-4.6); Lymphocytes % 12.4 %; Mean Corpuscular HGB Conc 31.5 g/dL (31.6-35.5); Mean Corpuscular Hemoglobin 29.6 pg (28.0-33.3); Mean Corpuscular Volume 93.9 fL (83.0-100.0); Mean Platelet Volume 9.9 fL (9.4-12.4); Monocytes # 1.2 K/mcL (0.0-1.3); Monocytes % 9.7 %; Neutrophils # 9.5 K/mcL (1.6-8.9); Platelet Count 214 K/mcL (140-400); Red Blood Count 4.12 M/mcL (3.82-4.97); Red Cell Distribution Width 13.2 % (11.5-14.5); Segmented Neutrophils % 75.6 %; White Blood Count 12.5 K/mcL (4.3-11.1)
[2019-05-11] MEDS: Insulin LISPRO 300 UNITS/3 ML VIAL SQ SCH ×4 (08:34→20:44)
[2019-05-11] MEDS: Multivit/Ca/Min/Fe/FA 1 TAB TABLET PO SCH (08:35)
[2019-05-11] MEDS: Ertapenem 1,000 MG in 0.9 % Sodium Chloride Mini Bag 100 ML IVPB SCH (08:35)
--- NOTE | 2019-05-11 12:44 | Internal Med Progress Note ---
Hospitalist Progress Note - Encounter Date of Encounter: 05/11/19 Time of Encounter: 12:41 - Subjective Interval History: Pt up in chair. She denies chest pain and SOB. She denies N/V or diarrhea. Denies abdominal pain. - Exam Vitals: Temp Pulse Resp BP Pulse Ox 98.2 F 93 16 140/82 94 05/11/19 12:31 05/11/19 12:31 05/11/19 12:31 05/11/19 12:31 05/11/19 12:31 Exam: General appearance: Present: A&O X 3, no acute distress, answers questions appropriately Exam: Head exam: Present: atraumatic, normal inspection Neck exam general surgery: Present: supple Respiratory exam: Present: CTABL. Absent: rales, respiratory distress, rhonchi, wheezes Cardiovascular exam: Present: RRR, +S1, +S2. Absent: tachycardia GI/Abdominal exam: Present: normal bowel sounds, soft. Absent: rebound, rigid, tenderness Extremities exam: Present: normal inspection. Absent: calf tenderness, pedal edema, tenderness Back exam: Absent: CVA tenderness (L), CVA tenderness (R) Neurological exam: Present: alert, oriented X3, strengths equal and symmetrical throughout. Absent: facial droop, speech deficit Psychiatric exam: Present: normal affect, normal mood - Assessment and Plan (1) Acute cystitis with hematuria Current Visit: Yes Status: Acute Assessment and Plan: Her UA was abnormal on admission Concerning for UTI Started on IV Rocephin due to urine culture showing gram neg katharine. Culture results showing ESBL. Pt started on Ertapenem 05/09/19 and Rocephin discontinued. Isolation precaution. Plan is to continue Ertapenem till Monday and give one time dose Fosfomycin on Monday. Orders in the computer. Possible DC in am (2) Chest pain Current Visit: Yes Status: Acute Assessment and Plan: Will continue to monitor on telemetry. Troponin <0.03 x 3 Echo unremarkable EKG reviewed- Afib, HR @ 97, No acute ST , T changes noticed On ASA, Nitro PRN for pain. Resumed home med Metoprolol and statin FLP reviewed and wnl. Pt's stress test was unremarkable. Pt requested for DNR CCA/ DNI code status (3) Atrial fibrillation Current Visit: No Status: Chronic Assessment and Plan: Chronic Afib, rate controlled continue home med Metoprolol On Coumadin for anti coagulation. (4) CAD (coronary artery disease) Current Visit: No Status: Chronic Assessment and Plan: CAD s/p CABG resumed all home meds Stress test reviewed and negative (5) GERD (gastroesophageal reflux disease) Current Visit: No Status: Chronic Assessment and Plan: on Omeprazole (6) HTN (hypertension) Current Visit: No Status: Chronic Assessment and Plan: Stable BP on Metoprolol (7) HLD (hyperlipidemia) Current Visit: No Status: Chronic Assessment and Plan: Zocor (8) Diabetes Current Visit: No Status: Chronic Assessment and Plan: ADA diet. On ISS. Will add Levemir 5 units QHS DVT Prophylaxis: Coumadin - Summary of Assessment and Plan Summary of Assessment and Plan: History of present illness: Dr. Groves Ms. Diaz is a 88 year old female with known past medical history of Dementia, diastolic CHF chronic hypoxic respiratory failure on 2 lit oxygen at home, hypertension, hyperlipidemia, CAD status post PCI and CABG, DM2 and Chronic a fib on Coumadin for anti coag pt presented to ER with intermittent CP located sub sternally and radiating to her left side chest wall region. Her CP is sharp pain and relived with SL Nitro. She also c/o feeling weak and lethargic. She denied any SOB. She also mentioned some left flank pain. - Time Spent with Patient Total time spent is greater than 50% in coordination of care (as documented) at patient's floor/unit and/or counseling patient: less than 15 minutes Plan of Care Discussed with: patient Internal Medicine: Result - Labs CBC & Chem 7: 05/11/19 06:23 05/11/19 06:23 Labs: Short CBC 05/11/19 Range/Units 06:23 WBC 12.5 H (4.3-11.1) K/mcL Hgb 12.2 (11.5-15.4) g/dL Hct 38.7 (35.3-44.9) % Plt Count 214 (140-400) K/mcL Neutrophils # 9.5 H (1.6-8.9) K/mcL BMP 05/11/19 06:23 Sodium 139 Potassium 4.0 Chloride 101 Carbon Dioxide 27 BUN 16 Creatinine 0.70 Glucose 125 H Calcium 9.1 - ABG Interpretation ABG results: PT/INR, D-dimer PT 22.7 Seconds (9.4-12.1) H 05/11/19 06:23 Consult Discharge Plan - Plan Referrals: Virginia Diaz, FIRE INFORMATION OFFICER [Primary Care Provider] - Prescriptions: Ertapenem [INVanz] 1,000 mg IVPB DAILY 5 Days #5 vial (2) Chest pain Qualifiers: Chest pain type: unspecified Qualified Code(s): R07.9 - Chest pain, unspecified (3) Atrial fibrillation Qualifiers: Atrial fibrillation type: chronic Qualified Code(s): I48.2 - Chronic atrial fibrillation (4) CAD (coronary artery disease) Qualifiers: Coronary Disease-Associated Artery/Lesion type: unspecified vessel or lesion type [place] vs. transplanted heart: [place] heart Associated angina: angina presence unspecified Qualified Code(s): I25.10 - Atherosclerotic heart disease of [place] coronary artery without angina pectoris (5) GERD (gastroesophageal reflux disease) Qualifiers: Esophagitis presence: esophagitis presence not specified Qualified Code(s): K21.9 - Gastro-esophageal reflux disease without esophagitis (6) HTN (hypertension) Qualifiers: Hypertension type: essential hypertension Qualified Code(s): I10 - Essential (primary) hypertension (7) HLD (hyperlipidemia) Qualifiers: Hyperlipidemia type: pure hypercholesterolemia Qualified Code(s): E78.00 - Pure hypercholesterolemia, unspecified; E78.0 - Pure hypercholesterolemia (8) Diabetes Qualifiers: Diabetes mellitus type: type 2 Diabetes mellitus half-way insulin use: wit hout half-way use Diabetes mellitus complication status: without complication Qualified Code(s): E11.9 - Type 2 diabetes mellitus without complications
[2019-05-11] MEDS: *HR* Warfarin 2 MG TABLET PO SCH (18:09)
[2019-05-11] MEDS: Insulin DETEMIR 100 UNIT/ML X5UNITS SQ SCH (20:44)
[2019-05-12 07:00] LABS: INR 2.1; Prothrombin Time 23.8 Seconds (9.4-12.1)
[2019-05-12] MEDS: Multivit/Ca/Min/Fe/FA 1 TAB TABLET PO SCH (08:18)
[2019-05-12] MEDS: Insulin LISPRO 300 UNITS/3 ML VIAL SQ SCH (08:19)
[2019-05-12] MEDS ORDERED: Fosfomycin Tromethamine 3 GM Packet PO ONE (09:00)
[2019-05-12 10:42] LABS: Basophils # 0.1 K/mcL (0.0-0.2); Basophils % 0.5 %; Eosinophils # 0.1 K/mcL (0.0-0.6); Eosinophils % 1.3 %; Hematocrit 37.2 % (35.3-44.9); Hemoglobin 12.1 g/dL (11.5-15.4); Immature Granulocytes % 0.4 % (0-4); Lymphocytes % 9.8 %; Mean Corpuscular HGB Conc 32.5 g/dL (31.6-35.5); Mean Corpuscular Hemoglobin 30.3 pg (28.0-33.3); Mean Corpuscular Volume 93.2 fL (83.0-100.0); Mean Platelet Volume 9.6 fL (9.4-12.4); Monocytes % 9.8 %; Neutrophils # 8.1 K/mcL (1.6-8.9); Platelet Count 210 K/mcL (140-400); Red Blood Count 3.99 M/mcL (3.82-4.97); Red Cell Distribution Width 13.2 % (11.5-14.5); Segmented Neutrophils % 78.2 %; White Blood Count 10.3 K/mcL (4.3-11.1)
[2019-05-12] MEDS: Ondansetron 4 MG/2 ML VIAL IVP PRN (10:42)
[2019-05-12 11:58] VITALS: BP 114/63
--- NOTE | 2019-05-12 12:10 | Discharge Summary ---
- NOTES TO OUTPATIENT PROVIDER Notes to Outpatient Provider: PCP in 5 to 7 days Orders not resulted at time of discharge: Pending orders 05/07/19 15:46 NM manju perf SPECT multi [NM] Routine 05/13/19 04:00 PT/INR [Prothrombin Time INR] [COAG] AM 0400 Date of Encounter: 05/12/19 Time of Encounter: 11:41 - Discharge Diagnosis (1) Acute cystitis with hematuria Priority: Primary Status: Acute Assessment and Plan: Due to ESBL Her UA was abnormal on admission Concerning for UTI. Started on IV Rocephin due to urine culture showing gram neg katharine. Culture results showing ESBL. Pt started on Ertapenem 05/09/19 and Rocephin discontinued. Isolation precaution ordered. Pt completed Ertapenem on 05/11/19, and was given one time dose Fosfomy handy on Monday05/12/19. Plan to DC today to follow up out pt with her PCP (2) Chest pain Priority: Secondary Status: Acute Assessment and Plan: Will continue to monitor on telemetry. Troponin <0.03 x 3 Echo unremarkable EKG reviewed- Afib, HR @ 97, No acute ST , T changes noticed On ASA, Nitro PRN for pain. Resumed home med Metoprolol and statin FLP reviewed and wnl. Pt's stress test was unremarkable. Pt requested for DNR CCA/ DNI code status Qualifiers: Chest pain type: unspecified Qualified Code(s): R07.9 - Chest pain, unspecified (3) Atrial fibrillation Priority: Secondary Status: Chronic Assessment and Plan: Chronic Afib, rate controlled continue home med Metoprolol On Coumadin for anti coagulation. Qualifiers: Atrial fibrillation type: chronic Qualified Code(s): I48.2 - Chronic atrial fibrillation (4) CAD (coronary artery disease) Priority: Secondary Status: Chronic Assessment and Plan: CAD s/p CABG Resumed all home meds Stress test reviewed and negative Qualifiers: Coronary Disease-Associated Artery/Lesion type: unspecified vessel or lesion type [place] vs. transplanted heart: [place] heart Associated angina: angina presence unspecified Qualified Code(s): I25.10 - Atherosclerotic heart disease of [place] coronary artery without angina pectoris (5) GERD (gastroesophageal reflux disease) Priority: Secondary Status: Chronic Assessment and Plan: On Omeprazole Qualifiers: Esophagitis presence: esophagitis presence not specified Qualified Code(s): K21.9 - Gastro-esophageal reflux disease without esophagitis (6) HTN (hypertension) Priority: Secondary Status: Chronic Assessment and Plan: Stable BP on Metoprolol Qualifiers: Hypertension type: essential hypertension Qualified Code(s): I10 - Essential (primary) hypertension (7) HLD (hyperlipidemia) Priority: Secondary Status: Chronic Assessment and Plan: Zocor Qualifiers: Hyperlipidemia type: pure hypercholesterolemia Qualified Code(s): E78.00 - Pure hypercholesterolemia, unspecified; E78.0 - Pure hypercholesterolemia (8) Diabetes Priority: Secondary Status: Chronic Assessment and Plan: ADA diet. Will Resume home medications Qualifiers: Diabetes mellitus type: type 2 Diabetes mellitus group home insulin use: without group home use Diabetes mellitus complication status: without complication Qualified Code(s): E11.9 - Type 2 diabetes mellitus without complications Hospital course: History of present illness: Dr. Groves Ms. Diaz is a 88 year old female with known past medical history of Dementia, diastolic CHF chronic hypoxic respiratory failure on 2 lit oxygen at home, hypertension, hyperlipidemia, CAD status post PCI and CABG, DM2 and Chronic a fib on Coumadin for anti coag pt presented to ER with intermittent CP located sub sternally and radiating to her left side chest wall region. Her CP is sharp pain and relived with SL Nitro. She also c/o feeling weak and lethargic. She denied any SOB. She also mentioned some left flank pain. Discharge discussed with: patient - Time Spent with Patient Total time spent providing and/or coordinating discharge services: Time spent: Greater than 30 minutes - Discharge Medications Prescriptions: Continued Simvastatin [Zocor] 20 mg PO HS Potassium Chloride [K-Tab ER] 20 meq PO DAILY Glimepiride [Amaryl] 2 mg PO DAILY Furosemide [Lasix] 40 mg PO BID Omeprazole [PriLOSEC] 40 mg PO DAILY Nitroglycerin [Nitrostat] 0.4 mg SL Q5M PRN PRN Reason: Chest Pain Ferrous Sulfate [Iron] 325 mg PO DAILY Oxygen 2 l NS HS Multivitamin [One Daily Multivitamin] 1 tab PO DAILY Albuterol Sulfate [Proair Hfa] 2 puff IH Q4H PRN PRN Reason: Shortness Of Breath HYDROcodone/Acet 7.5/325 mg [[place] 7.5-325 mg] 0.5 tab PO TID PRN 5 Days #15 tablet PRN Reason: Pain Fluticasone Propionate Nasal [Flonase] 1 spray IN BID PRN PRN Reason: Allergy Symptoms Warfarin [Coumadin] 2 mg PO DAILY Ranitidine HCl [Heartburn Relief] 150 mg PO BID DULoxetine [Cymbalta] 30 mg PO DAILY Metoprolol Succinate [Toprol Xl] 25 mg PO DAILY Mirabegron [Myrbetriq] 50 mg PO DAILY Acetaminophen [Tylenol Arthritis] 1,300 mg PO BID Home Medications: Ferrous Sulfate [Iron] 325 mg PO DAILY 10/23/17 [History] Furosemide [Lasix] 40 mg PO BID 10/23/17 [History] Glimepiride [Amaryl] 2 mg PO DAILY 10/23/17 [History] Nitroglycerin [Nitrostat] 0.4 mg SL Q5M PRN 10/23/17 [History] Omeprazole [PriLOSEC] 40 mg PO DAILY 10/23/17 [History] Potassium Chloride [K-Tab ER] 20 meq PO DAILY 10/23/17 [History] Simvastatin [Zocor] 20 mg PO HS 10/23/17 [History] Albuterol Sulfate [Proair Hfa] 2 puff IH Q4H PRN 01/29/18 [History] Multivitamin [One Daily Multivitamin] 1 tab PO DAILY 01/29/18 [History] Oxygen 2 l NS HS 01/29/18 [History] HYDROcodone/Acet 7.5/325 mg [[place] 7.5-325 mg] 0.5 tab PO TID PRN 5 Days #15 tablet 02/01/18 [Rx] Fluticasone Propionate Nasal [Flonase] 1 spray IN BID PRN 05/07/19 [History] Ranitidine HCl [Heartburn Relief] 150 mg PO BID 05/07/19 [History] Warfarin [Coumadin] 2 mg PO DAILY 05/07/19 [History] Acetaminophen [Tylenol Arthritis] 1,300 mg PO BID 05/08/19 [History] DULoxetine [Cymbalta] 30 mg PO DAILY 05/08/19 [History] Metoprolol Succinate [Toprol Xl] 25 mg PO DAILY 05/08/19 [History] Mirabegron [Myrbetriq] 50 mg PO DAILY 05/08/19 [History] Allergies/Adverse Reactions: Allergy/AdvReac Type Severity Reaction Status Date / Time Penicillins AdvReac Anaphylaxis Verified 05/08/19 08:37 Date of admission: 05/09/19 15:02 Primary care physician: Virginia Diaz CNP Consults: 05/07/19 14:28 Consult to Nutrition [CONS] Routine Comment: Consulting Provider: NUTRITION Reason for Dietary Consult: MST Score Consult to Pastoral Services [CONS] Routine Comment: Consult to Learning And Development Coordinator [CONS] Routine Reason for SW Consult: Patient lives at home alone. [facility] 05/09/19 11:26 Consult to Physical Therapy [CONS] Routine Comment: Evaluate, develop and implement POC Reason for Consult: weakness, deconditioning Does patient have active BEDREST order?: No Is patient medically & hemodynamically stable?: Yes Patient assessed for mobility or mobilized this visit?: No 05/09/19 11:27 Consult to Occupational Therapy [CONS] Routine Comment: Evaluate, develop and implement POC Reason for Consult: weakness, deconditioning Does patient have active BEDREST order?: No Is patient medically & hemodynamically stable?: Yes Patient assessed for mobility or mobilized this visit?: No 05/10/19 11:16 Consult to Invasive Line Access Team [CONS] Routine Reason for Consult: poor access Line Type: EPIV 05/10/19 12:20 Consult to Invasive Line Access Team [CONS] Routine Reason for Consult: group home IV atb use Line Type: EPIV Discharging clinician: Yue Boogie Anticipated date of discharge: 05/12/19 - Constitutional Vitals: Temp Pulse Resp BP Pulse Ox 97.9 F 101 18 139/65 97 05/12/19 07:56 05/12/19 07:56 05/12/19 07:56 05/12/19 07:56 05/12/19 08:04 General appearance: Present: A&O X 3, no acute distress, answers questions appro priately Exam: General appearance: Present: A&O X 3, no acute distress, answers questions appropriately Exam: Head exam: Present: atraumatic, normal inspection Neck exam general surgery: Present: supple Respiratory exam: Present: CTABL. Absent: rales, respiratory distress, rhonchi, wheezes Cardiovascular exam: Present: RRR, +S1, +S2. Absent: tachycardia GI/Abdominal exam: Present: normal bowel sounds, soft. Absent: rebound, rigid, tenderness Extremities exam: Present: normal inspection. Absent: calf tenderness, pedal edema, tenderness Back exam: Absent: CVA tenderness (L), CVA tenderness (R) Neurological exam: Present: alert, oriented X3, strengths equal and symmetrical throughout. Absent: facial droop, speech deficit Psychiatric exam: Present: normal affect, normal mood - Patient Status Disposition: Home, Self-Care Condition: Good Overall status at discharge: patient is back to baseline - Discharge Instructions Follow Up With: Virginia Diaz, ACCOUNTING/FINANCE TUTOR [Primary Care Provider] - - Diet and Activity Activity: increase activity as tolerated Diet: diabetic diet, low fat, low cholesterol, low salt diet
[2019-05-12] MEDS ORDERED: Furosemide 20 MG/2 ML VIAL IVP ONE (12:11)
== END 2019-05-12 14:08 | disposition home or self-care (01) | DRG 690 ==
LOC: 3ANU 07:42 → EMEROOARM 07:42 → 3ANU 12:56
PROVIDERS: ADMIT Internal Medicine Nephrology; ATTEND Internal Medicine Nephrology

== ENCOUNTER 2019-05-18 11:25 | Inpatient (IN) ==
[2019-05-18] MEDS ORDERED: 0.9 % Sodium Chloride 1,000 ML IVC ONE (11:30)
--- NOTE | 2019-05-18 11:32 | Emergency Department Note ---
Disposition Clinical Impression: C. difficile colitis, Elevated troponin Disposition: Admitted As Inpatient Condition: Fair Time of Disposition: 17:42 Weakness HPI - General Stated complaint: Dehydration Time Seen by Provider: 05/18/19 11:30 Nursing Notes Reviewed: Yes Vital Signs Reviewed: Yes - History of Present Illness HPI Narrative: 88-year-old female past medical history of CAD, CABG procedure, A. fib on Coumadin. Recent history of UTI as well as C. difficile identified on ou tpatient laboratories performed yesterday. Patient presenting for one week gradually progressive and worsening lower abdominal pain, diarrhea non-mucoid nonbloody. As well as generalized weakness. Patient has dementia at baseline has been living with her daughter for the past few months receiving 24-hour care. No other concerns or complaints at this time. Pt Subjective Complaint: generalized weakness/fatigue - Related Data Home Medications Medication Instructions Recorded Confirmed Ferrous Sulfate [Iron] 325 mg PO DAILY 10/23/17 05/18/19 Furosemide [Lasix] 40 mg PO BID 10/23/17 05/18/19 Glimepiride [Amaryl] 2 mg PO DAILY 10/23/17 05/18/19 Nitroglycerin [Nitrostat] 0.4 mg SL Q5M PRN 10/23/17 05/18/19 Potassium Chloride [K-Tab ER] 20 meq PO DAILY 10/23/17 05/18/19 Simvastatin [Zocor] 20 mg PO HS 10/23/17 05/18/19 Albuterol Sulfate [Proair Hfa] 2 puff IH Q4H PRN 01/29/18 05/18/19 Multivitamin [One Daily 1 tab PO DAILY 01/29/18 05/18/19 Multivitamin] Oxygen 2 l NS HS 01/29/18 05/18/19 Fluticasone Propionate Nasal 1 spray IN BID PRN 05/07/19 05/18/19 [Flonase] Ranitidine HCl [Heartburn Relief] 150 mg PO BID 05/07/19 05/18/19 Warfarin [Coumadin] 2 mg PO DAILY 05/07/19 05/18/19 Acetaminophen [Tylenol Arthritis] 1,300 mg PO BID 05/08/19 05/18/19 DULoxetine [Cymbalta] 30 mg PO DAILY 05/08/19 05/18/19 Metoprolol Succinate [Toprol Xl] 25 mg PO DAILY 05/08/19 05/18/19 Mirabegron [Myrbetriq] 50 mg PO DAILY 05/08/19 05/18/19 Omeprazole [PriLOSEC] 20 mg PO DAILY 05/18/19 05/18/19 Previous Rx's Medication Instructions Recorded HYDROcodone/Acet 7.5/325 mg [[place] 0.5 tab PO TID PRN 5 Days #15 02/01/18 7.5-325 mg] tablet Allergies Allergy/AdvReac Type Severity Reaction Status Date / Time Penicillins AdvReac Anaphylaxis Verified 05/08/19 08:37 Review of Systems: *See History of Present Illness for more detail Constitutional: Admits fever, chills Cardiovascular: Denies: chest pain Respiratory: Denies: dyspnea, cough, hemoptysis Gastrointestinal: Admits abdominal pain, nausea, vomiting, diarrhea, c denies: onstipation, hematemesis, melena, hematochezia Genitourinary: Denies: hematuria Musculoskeletal: Denies: back pain, neck pain Neurological: Admits to weakness. Denies: headache, lightheadedness/dizziness, numbness, paresthesias, difficulty with ambulation. Endocrine: Admits: fatigue All systems ED: reviewed and negative except as stated. Review of Systems: As Per HPI Past Medical History - Past Medical History Medical history: Reports: arthritis, asthma, atrial fibrillation, CHF, coronary artery disease, CVA, diabetes, GERD, hyperlipidemia, hypertension, myocardial infarction, TIA, other Surgical history: Reports: coronary bypass (CABG), hysterectomy Psychiatric history: Reports: no psych history PRESSER FIRST history: Reports: non-contributory - Social History Smoking Status: Never smoker Smokeless Tobacco Status: No Alcohol use: Reports: none Drug use: Reports: none Physical Exam Constitutional: No acute distress, alert, pleasantly demented, otherwise engaged to conversation, speech is fluid Neuro: GCS 15, no overt focal neurological deficits Head: Atraumatic, normocephalic Eyes: Pupils equal, round and reactive to light, no scleral icterus, no conjunctival injection Neck: Trachea midline without deviation. Anterior neck is supple without swelling. *Chest: Symmetric chest wall rise *Heart: Cardiac rhythm and rate are regular with S1 and S2 , no S3 or S4 appreciated, no murmurs, gallops, rubs, or clicks. *Lungs: Lungs are clear to auscultation bilaterally, without accessory muscle use or prolonged expiratory phase. No wheezes, rhonchi or stridor appreciated. Abdomen: Abdomen is flat, soft to palpation, normal bowel sounds. No abdominal bruit auscultated. Non-distended, non-rigid, no organomegaly, no ascites appreciated. No pulsatile mass, no tenderness or guarding to palpation in all four quadrants, no rebound Extremities: Normal capillary refill without evidence of pedal edema, joint swelling or erythema. Pulses/motor/sensory intact in all 4 extremities. Psychiatric exam: Patient displays a normal affect and mood for the environment. No overt signs of hallucination. Integumentary: warm, dry, intact, normal color. No rash, cyanosis, diaphoresis, erythema, or pallor - General Limitations: no limitations General appearance: alert, in no apparent distress Course Vital Signs Temperature 97.4 F L 05/18/19 11:38 Pulse Rate 92 05/18/19 11:38 Respiratory Rate 19 05/18/19 11:38 Blood Pressure 144/89 05/18/19 11:38 O2 Sat by Pulse Oximetry 97 05/18/19 11:38 Temperature 97.8 F 05/18/19 15:31 Pulse Rate 92 05/18/19 15:31 Respiratory Rate 16 05/18/19 15:31 Blood Pressure 126/82 05/18/19 15:31 O2 Sat by Pulse Oximetry 100 05/18/19 15:31 Oxygen Delivery Oxygen Delivery Nasal Cannula Weakness - MDM Narrative Medical decision making narrative: Patient with elevated troponin-likely demand ischemia given aspirin in the ED History of C. difficile given oral vancomycin in the ED. Patient admitted hospital medicine service for C. difficile and elevated troponin. Patient and daughter bedside verbalize understanding and agreement this plan. Dr. Barnes accepting admission to hospitalist medicine service. Chest X-Ray 05/18/19 11:30 IMPRESSION: 1. Stable small bilateral pleural effusions. 2. Stable findings suggesting COPD. D/ / Boogie Cristobal MD / Boogie Cristobal MD Interpreting Provider: Boogie Cristobal MD 1230 hrs.: Daughter states patient has C. difficile positive but they have not started on vancomycin yet so we will start that here. She went to see if she could eat something so we will order her a meal tray here also. Waiting on rest her labs and then reassess. Discussed chest x-ray with daughter. 1315 hrs. Her troponins elevated no chest pain here. We will start her on the vancomycin. We will bring her into the hospital for admission. Follow her troponins. She also has a leukocytosis which may be from elevation in her troponin could be from dehydration could be also from her C. difficile. She does not appear septic at this time. 1422 hrs.: Hospitalist as accepted patient for admission. - Lab Data Lab results reviewed: Yes I reviewed the patient's lab results. Result diagrams: 05/18/19 11:40 05/18/19 11:40 Lab Results 05/18/19 05/18/19 05/18/19 Range/Units 11:40 11:40 11:40 WBC 14.4 H (4.3-11.1) K/mcL RBC 4.44 (3.82-4.97) M/mcL Hgb 13.1 (11.5-15.4) g/dL Hct 40.4 (35.3-44.9) % MCV 91.0 (83.0-100.0) fL MCH 29.5 (28.0-33.3) pg MCHC 32.4 (31.6-35.5) g/dL RDW 13.2 (11.5-14.5) % Plt Count 240 (140-400) K/mcL MPV 9.6 (9.4-12.4) fL Immature Gran % 0.4 (0-4) % Seg Neutrophils % 81.7 % Lymphocytes % 8.1 % Monocytes % 8.4 % Eosinophils % 1.0 % Basophils % 0.4 % Neutrophils # 11.7 H (1.6-8.9) K/mcL Lymphocytes # 1.2 (0.6-4.6) K/mcL Monocytes # 1.2 (0.0-1.3) K/mcL Eosinophils # 0.1 (0.0-0.6) K/mcL Basophils # 0.1 (0.0-0.2) K/mcL PT 21.5 H (9.4-12.1) Seconds INR 1.9 Sodium 141 (136-145) mEq/L Potassium 3.3 L (3.5-5.1) mEq/L Chloride 99 (98-107) mEq/L Carbon Dioxide 28 (23-29) mEq/L BUN 7 L (8-23) mg/dL Creatinine 0.74 (0.60-1.20) mg/dL Est GFR ( Amer) > 60 (> 60) Est GFR (Non-Af Amer) > 60 (> 60) BUN/Creatinine Ratio 9 (6-26) Glucose 160 H (70-105) mg/dL Calculated Osmolality 293 (280-300) Lactic Acid (0.5-2.2) mmol/L Calcium 8.8 (8.6-10.3) mg/dL Total Bilirubin 0.8 (0.3-1.0) mg/dL Direct Bilirubin 0.2 (0.0-0.2) mg/dL Indirect Bilirubin 0.6 (0.0-1.2) mg/dL AST 16 (13-39) Units/L ALT 8 (7-52) Units/L Alkaline Phosphatase 81 (34-104) Units/L Troponin I 0.04 H* (< 0.04) ng/mL Serum Total Protein 6.2 L (6.4-8.9) g/dL Albumin 3.5 (3.5-5.7) g/dL Globulin 2.7 (2.4-3.5) g/dL Albumin/Globulin Ratio 1.3 (1.1-2.2) Lipase < 3 L (11-82) Units/L Urine Color (Yellow) Urine Clarity (Clear) Urine pH (5.0-8.0) pH Units Ur Specific [place] (1.010-1.025) Urine Protein (Neg-Trace) mg/dL Urine Glucose (UA) (Normal) mg/dL Urine Ketones (Negative) mg/dL Urine Blood (Negative) Urine Nitrite (Negative) Urine Bilirubin (Negative) Urine Urobilinogen (Normal) mg/dL Ur Leukocyte Esterase (Negative) Urine Microscopic RBC (0-3) per hpf Urine Microscopic WBC (0-3) per hpf Ur Squamous Epith Cells (None-Few) per lpf Urine Bacteria (None-Few) per hpf Ur Culture Indicated? (NO) 05/18/19 05/18/19 Range/Units 12:03 12:10 WBC (4.3-11.1) K/mcL RBC (3.82-4.97) M/mcL Hgb (11.5-15.4) g/dL Hct (35.3-44.9) % MCV (83.0-100.0) fL MCH (28.0-33.3) pg MCHC (31.6-35.5) g/dL RDW (11.5-14.5) % Plt Count (140-400) K/mcL MPV (9.4-12.4) fL Immature Gran % (0-4) % Seg Neutrophils % % Lymphocytes % % Monocytes % % Eosinophils % % Basophils % % Neutrophils # (1.6-8.9) K/mcL Lymphocytes # (0.6-4.6) K/mcL Monocytes # (0.0-1.3) K/mcL Eosinophils # (0.0-0.6) K/mcL Basophils # (0.0-0.2) K/mcL PT (9.4-12.1) Seconds INR Sodium (136-145) mEq/L Potassium (3.5-5.1) mEq/L Chloride (98-107) mEq/L Carbon Dioxide (23-29) mEq/L BUN (8-23) mg/dL Creatinine (0.60-1.20) mg/dL Est GFR ( Amer) (> 60) Est GFR (Non-Af Amer) (> 60) BUN/Creatinine Ratio (6-26) Glucose (70-105) mg/dL Calculated Osmolality (280-300) Lactic Acid 0.7 (0.5-2.2) mmol/L Calcium (8.6-10.3) mg/dL Total Bilirubin (0.3-1.0) mg/dL Direct Bilirubin (0.0-0.2) mg/dL Indirect Bilirubin (0.0-1.2) mg/dL AST (13-39) Units/L ALT (7-52) Units/L Alkaline Phosphatase (34-104) Units/L Troponin I (< 0.04) ng/mL Serum Total Protein (6.4-8.9) g/dL Albumin (3.5-5.7) g/dL Globulin (2.4-3.5) g/dL Albumin/Globulin Ratio (1.1-2.2) Lipase (11-82) Units/L Urine Color Yellow (Yellow) Urine Clarity Cloudy A (Clear) Urine pH 5.5 (5.0-8.0) pH Units Ur Specific [place] 1.017 (1.010-1.025) Urine Protein Negative (Neg-Trace) mg/dL Urine Glucose (UA) Normal (Normal) mg/dL Urine Ketones Negative (Negative) mg/dL Urine Blood Trace H (Negative) Urine Nitrite Negative (Negative) Urine Bilirubin Negative (Negative) Urine Urobilinogen Normal (Normal) mg/dL Ur Leukocyte Esterase Trace H (Negative) Urine Microscopic RBC 5-15 H (0-3) per hpf Urine Microscopic WBC 3-5 H (0-3) per hpf Ur Squamous Epith Cells Many H (None-Few) per lpf Urine Bacteria None Seen (None-Few) per hpf Ur Culture Indicated? YES A (NO) - Radiology Data Radiology results reviewed: Yes I reviewed the patient's radiology results. Chest X-Ray 05/18/19 11:30 IMPRESSION: 1. Stable small bilateral pleural effusions. 2. Stable findings suggesting COPD. D/ / Boogie Cristobal MD / Boogie Cristobal MD Interpreting Provider: Boogie Cristobal MD - EKG Data EKG attestation: Yes I reviewed and interpreted this EKG. EKG results narrative: Patient's EKG shows atrial fibrillation with a number incomplete left bundle branch block with a prolonged QT interval with a heart rate of 99 bpm, QRS duration of 110 ms, QT/QTc intervals 39/5 on 1 ms respectively. There are no significant ST segment elevations, depressions, pathologic Q waves, abnormal T- wave inversions, nor any other signs acute ischemic change. This EKG that was performed today is generally consistent with prior EKG was performed on 05/07/2019. Attestation Statement - Attestation Attestation: This documentation is done with the assistance of Dragon dictation. Despite efforts made to ensure accuracy, there may be inaccuracies in overedge sewer or spelling and typographical errors. I examined this patient and my medical decision-making was reviewed with the Resident Physician. I agree with the documented findings, disposition and treatment plan as described except to the extent set forth below. Patient was seen and evaluated by Dr. sims and myself, I agree with his evaluation and management plan, I supervised the care the patient throughout her stay. Patient presents from EMS from home. She has been dehydrated had some nausea vomiting diarrhea. Her primary care physician did labs either today or yesterday and called the family saying she needed to come in due to abnormal labs. I looked in our computer and I do not see anything that recent there some labs from the end of April but those look good. Sore repeat labs. Waiting on family to come and see if he gets more information from them. And then reassess. She does appear dry and may need admission. History of UTI and chest pain on previous admission. I reviewed the residents documentation and agree with the residents assessment and plan of care. I have personally had face to face time with the patient. (Brief History, Brief Exam, and MDM) I personally supervised and was present for the sherwood/critical portions of the following procedures completed by the resident: EKG was read and interpreted by the ER resident, under my supervision, I agree with her interpretation.
[2019-05-18 11:52] LABS: Basophils # 0.1 K/mcL (0.0-0.2); Basophils % 0.4 %; Eosinophils # 0.1 K/mcL (0.0-0.6); Hematocrit 40.4 % (35.3-44.9); Hemoglobin 13.1 g/dL (11.5-15.4); Immature Granulocytes % 0.4 % (0-4); Lymphocytes # 1.2 K/mcL (0.6-4.6); Lymphocytes % 8.1 %; Mean Corpuscular HGB Conc 32.4 g/dL (31.6-35.5); Mean Corpuscular Hemoglobin 29.5 pg (28.0-33.3); Mean Platelet Volume 9.6 fL (9.4-12.4); Monocytes # 1.2 K/mcL (0.0-1.3); Monocytes % 8.4 %; Neutrophils # 11.7 K/mcL (1.6-8.9); Platelet Count 240 K/mcL (140-400); Red Blood Count 4.44 M/mcL (3.82-4.97); Red Cell Distribution Width 13.2 % (11.5-14.5); Segmented Neutrophils % 81.7 %; White Blood Count 14.4 K/mcL (4.3-11.1)
[2019-05-18 12:29] LABS: Bilirubin,Urine Negative (Negative); Blood,Urine Trace (Negative); Clarity,Urine Cloudy (Clear); Color,Urine Yellow (Yellow); Glucose,Urine (UA) Normal (Normal); Ketones,Urine Negative (Negative); Leukocyte Esterase,Urine Trace (Negative); Nitrite,Urine Negative (Negative); PH,Urine 5.5 pH Units (5.0-8.0); Protein,Urine Negative (Neg-Trace); Specific Gravity,Urine 1.017 (1.010-1.025); Urobilinogen,Urine Normal (Normal)
[2019-05-18 12:30] LABS: Bacteria,Urine None Seen per hpf (None-Few); Squamous Epithelial Cell,Urine Many per lpf (None-Few)
[2019-05-18] MEDS ORDERED: Vancomycin Oral Soln 125 MG/2.5 ML UDC PO STA (12:32)
[2019-05-18 12:35] LABS: Alanine Aminotransferase 8 Units/L (7-52); Albumin 3.5 g/dL (3.5-5.7); Albumin/Globulin Ratio 1.3 (1.1-2.2); Alkaline Phosphatase 81 Units/L (34-104); Aspartate Amino Transferase 16 Units/L (13-39); Bilirubin,Direct 0.2 mg/dL (0.0-0.2); Bilirubin,Indirect 0.6 mg/dL (0.0-1.2); Bilirubin,Total 0.8 mg/dL (0.3-1.0); Globulin 2.7 g/dL (2.4-3.5); Lipase < 3 Units/L (11-82); Total Protein 6.2 g/dL (6.4-8.9); Troponin I 0.04 ng/mL (< 0.04)
[2019-05-18] MEDS ORDERED: Aspirin 81 MG TAB.CHEW PO ONE (13:15)
[2019-05-18 14:01] LABS: INR 1.9; Prothrombin Time 21.5 Seconds (9.4-12.1)
[2019-05-18 14:18] LABS: BUN/Creatinine Ratio 9 (6-26); Blood Urea Nitrogen 7 mg/dL (8-23); Calcium 8.8 mg/dL (8.6-10.3); Carbon Dioxide 28 mEq/L (23-29); Chloride 99 mEq/L (98-107); Glucose 160 mg/dL (70-105); Osmolality,Calculated 293 (280-300); Potassium 3.3 mEq/L (3.5-5.1); Sodium 141 mEq/L (136-145); eGFR For African Americans > 60 (> 60); eGFR For Non-African Americans > 60 (> 60)
[2019-05-18] MEDS ORDERED: traMADol 50 MG TABLET PO PRN (14:27)
[2019-05-18] MEDS ORDERED: *HR* OxyCODONE Immed Rel 5 MG TABLET PO PRN (14:27)
[2019-05-18] MEDS ORDERED: Naloxone 0.4 MG/ML INJ IVP PRN (14:27)
[2019-05-18] MEDS ORDERED: Ondansetron 4 MG/2 ML VIAL IVP PRN (14:27)
[2019-05-18] MEDS ORDERED: Nitroglycerin 0.4 MG TAB.SUBL SL PRN (16:31)
[2019-05-18] MEDS ORDERED: *HR* HYDROcodone/Acet 7.5/325 mg TABLET PO PRN ×2 (16:31→16:55)
--- NOTE | 2019-05-18 16:52 | Internal Med History&Physical ---
Date of Encounter: 05/18/19 Time of Encounter: 14:15 Internal Medicine - H&P: HPI Chief complaint: Generalized weakness, diarrhea Admitted From: Emergency Dept Plans for Post Hospital Care: Home History of present illness: Ms. Diaz is a 88 year old female with past medical history significant for Afib on chronic anticoagulation therapy with warfarin, prior myocardial infarction prior CVA, CHF and coronary artery disease status post CABG asthma GERD and hypertension. She presented to the ED to be evaluated for generalized weakness and malaise. She reports multiple loose bowel movement but denies any melena or hematochezia, nausea and vomiting. She stated that she has been unable to keep up with her oral intake. She does admit to some episode of chills but denies any fevers. According to the ED report was recently diagnosed with C. difficile associated diarrhea per outpatient lab work performed by her PCP. During her initial workup by the ED she was noted to have mildly elevated troponin, mild leukocytosis and mild hypokalemia. Other laboratory workup was a urinalysis which revealed trace blood and leukocytes esterase but negative nitrates but with many squamous epithelial cells. Her INR on presentation was 1.9 and a chest radiograph was unrevealing but suggestive of COPD Past Med Surg Social Fam HX - Past Medical History Medical history: arthritis, asthma, atrial fibrillation, CHF, coronary artery disease, CVA, diabetes, GERD, hyperlipidemia, hypertension, myocardial infarction, TIA, other Additional medical history: bilat knee replacement, basal and squamous cell carcinoma, right shouler shoulder replacement Psychiatric history: no psych history - Past Surgical History Surgical History: coronary bypass (CABG), hysterectomy - Social History Smoking Status: Never smoker Smokeless Tobacco Status: No Alcohol use: none Drug use: none - Family History Father Family Member Ethnicity: Non- Living Status: Hx Family Cancer: Yes (Lung) Mother Family Member Ethnicity: Non- Living Status: Hx Family Cardiac Disorders: Yes Brother Family Member Ethnicity: Non- Living Status: Hx Family Cardiac Disorders: Yes Sister Adopted: No Family Member Ethnicity: Non- Living Status: Hx Family Endocrine Disorder: Yes (DM) Hx Family Neurologic Disorders: Yes (Alzheimer's disease) Internal Medicine - H&P: Meds Ferrous Sulfate [Iron] 325 mg PO DAILY 10/23/17 [History] Furosemide [Lasix] 40 mg PO BID 10/23/17 [History] Glimepiride [Amaryl] 2 mg PO DAILY 10/23/17 [History] Nitroglycerin [Nitrostat] 0.4 mg SL Q5M PRN 10/23/17 [History] Potassium Chloride [K-Tab ER] 20 meq PO DAILY 10/23/17 [History] Simvastatin [Zocor] 20 mg PO HS 10/23/17 [History] Albuterol Sulfate [Proair Hfa] 2 puff IH Q4H PRN 01/29/18 [History] Multivitamin [One Daily Multivitamin] 1 tab PO DAILY 01/29/18 [History] Oxygen 2 l NS HS 01/29/18 [History] HYDROcodone/Acet 7.5/325 mg [[place] 7.5-325 mg] 0.5 tab PO TID PRN 5 Days #15 tablet 02/01/18 [Rx] Fluticasone Propionate Nasal [Flonase] 1 spray IN BID PRN 05/07/19 [History] Ranitidine HCl [Heartburn Relief] 150 mg PO BID 05/07/19 [History] Warfarin [Coumadin] 2 mg PO DAILY 05/07/19 [History] Acetaminophen [Tylenol Arthritis] 1,300 mg PO BID 05/08/19 [History] DULoxetine [Cymbalta] 30 mg PO DAILY 05/08/19 [History] Metoprolol Succinate [Toprol Xl] 25 mg PO DAILY 05/08/19 [History] Mirabegron [Myrbetriq] 50 mg PO DAILY 05/08/19 [History] Omeprazole [PriLOSEC] 20 mg PO DAILY 05/18/19 [History] Allergy/AdvReac Type Severity Reaction Status Date / Time Penicillins AdvReac Anaphylaxis Verified 05/08/19 08:37 All Systems PM: A 10-system review of systems was performed and is negative for pertinent findings except as documented above in the HPI. Review of systems: GENERAL: Denies fever, chills, or night sweats but report generalized weakness and malaise DERMATOLOGIC: Denies itch, rash or lesions HEENT: Denies headache, blurriness, diplopia or decreased visual acuity, ear pain, tinnitus, rhinorrhea, sinus tenderness or sore throat RESPIRATORY: Denies SOB, cough, hemoptysis or pleuritic chest pain CARDIOVASCULAR: Denies chest pain, LE edema, palpitation or syncope GASTRO INTESTINAL: admits to bilateral LQ abdominal cramps, some nausea but no vomiting. Reports diarrhea MUSCULOSKELATAL: reports generalized muscle weakness, denies joint tenderness/pain or swelling PSYCH: Denies worsening anxiety, or depression NEURO: Denies vertigo, dizziness, or ataxia GENITURINARY: Denies dysuria, nocturia but reports some urinary incontinence - Constitutional Vitals: Temp Pulse Resp BP Pulse Ox 97.8 F 92 16 126/82 100 05/18/19 15:31 05/18/19 15:31 05/18/19 15:31 05/18/19 15:31 05/18/19 15:31 Exam: GENERAL: NAD, A&O x3, pleasant and conversant SKIN: No skin lesions or rashes, non-jaundiced but thin, dry and warm EYES: EOMI, PERRLA, no sclera icterus HENT: Head atraumatic, no facial asymmetry, frontal and maxillary sinus non- tender, normal hearing, oropharynx and mucosa dry but without any exudates NECK: No cervical lymphadenopathy, trachea midline, thyroid is palpable does not appear enlarged LUNGS: vesicular breath sounds although somewhat diminished but appears clear to auscultation, no wheeze, rhonchi, rales or crackles. Non labored respirations HEART: Irregularly irregular rate and rhythm grade 2/6 systolic murmur appreciated ABDOMEN: soft, tender in bilateral lower quadrants although no rebound or guarding, ventral hernia noted. non-distended, bowel sounds x 4 normoactive EXTRMITIES: No LE asymmetry, No LE edema, pedal pulses 1+ and radial pulses 2 + and equal bilaterally NEURO: Speech and comprehension appears intact. PSYCH: Cooperative and cheerful, mood and affect is appropriate Internal Med - H&P Results - Labs CBC & Chem 7: 05/18/19 11:40 05/18/19 11:40 Labs: Short CBC 05/18/19 Range/Units 11:40 WBC 14.4 H (4.3-11.1) K/mcL Hgb 13.1 (11.5-15.4) g/dL Hct 40.4 (35.3-44.9) % Plt Count 240 (140-400) K/mcL Neutrophils # 11.7 H (1.6-8.9) K/mcL BMP 07/06/19 11:40 Sodium 141 Potassium 3.3 L Chloride 99 Carbon Dioxide 28 BUN 7 L Creatinine 0.74 Glucose 160 H Calcium 8.8 Cardiac Enzymes 05/18/19 Range/Units 11:40 Troponin I 0.04 H* (< 0.04) ng/mL Liver Function 05/18/19 Range/Units 11:40 Total Bilirubin 0.8 (0.3-1.0) mg/dL Direct Bilirubin 0.2 (0.0-0.2) mg/dL AST 16 (13-39) Units/L ALT 8 (7-52) Units/L Alkaline Phosphatase 81 (34-104) Units/L Albumin 3.5 (3.5-5.7) g/dL Urine 05/18/19 Range/Units 12:10 Urine Color Yellow (Yellow) Urine Clarity Cloudy A (Clear) Urine pH 5.5 (5.0-8.0) pH Units Ur Specific [place] 1.017 (1.010-1.025) Urine Protein Negative (Neg-Trace) mg/dL Urine Glucose (UA) Normal (Normal) mg/dL - Impressions ITS Impressions Chest X-Ray 05/18/19 11:30 IMPRESSION: 1. Stable small bilateral pleural effusions. 2. Stable findings suggesting COPD. D/ / Boogie Cristobal MD / Boogie Cristobal MD Interpreting Provider: Boogie Cristobal MD - Assessment and Plan (1) Clostridioides difficile diarrhea Current Visit: Yes Status: Acute Assessment and plan: Patient with documented C. difficile associated diarrhea per Outpatient lab gio ed 05/27/2018 C. difficile toxin B+. We will initiate patient on vancomycin orally. Her abdomen exam was relatively benign, leukocytosis is mildly elevated she is afebrile. We will initiate patient on IV resuscitation due to anticipated electrolyte abnormalities with her multiple bowel movement (2) Malaise and fatigue Current Visit: Yes Status: Acute Assessment and plan: Secondary to her C. difficile associated diarrhea and associated electrical abnormalities, poor oral intake anticipated to improve as this is addressed as stated above (3) Hypokalemia Current Visit: Yes Status: Acute Assessment and plan: As aforementioned she has been placed on electrolyte replacement intravenously given that GI absorption is likely compromise with her colitis (4) Troponin I above reference range Current Visit: Yes Status: Acute Assessment and plan: She has a significant cardiovascular history with prior [place] troponin is mildly elevated she denies any chest pain will monitor on telemetry, per ED physician troponin is being trended (5) Chronic anticoagulation Current Visit: Yes Status: Acute Assessment and plan: INR is slightly subtherapeutic at 1.9 will continue home dose of warfarin and make adjustment as deemed necessary given her colitis, daily INR (6) Atrial fibrillation Current Visit: No Status: Chronic Assessment and plan: She is rate controlled will continue on therapy with warfarin Qualifiers: Atrial fibrillation type: chronic Qualified Code(s): I48.2 - Chronic atrial fibrillation (7) Diabetes Current Visit: No Status: Chronic Assessment and plan: Home oral diabetic medications will be held given her acute state she will be managed with insulin per protocol Qualifiers: Diabetes mellitus type: type 2 Diabetes mellitus shelter insulin use: without terminal supervisor use Diabetes mellitus complication status: without complication Qualified Code(s): E11.9 - Type 2 diabetes mellitus without complications (8) GERD (gastroesophageal reflux disease) Current Visit: No Status: Chronic Assessment and plan: Given a diagnosis of C. difficile colitis will recommend patient have a PPI free trial due to the increased correlation of PPI therapy use with broad-spectrum antibiotic therapy increasing the likelihood of developing C. difficile colitis. We will hold her PPI omeprazole, she is already also on a history jose eduardo ranitidine which will be continued. Dual therapy not clinically indicated Qualifiers: Esophagitis presence: esophagitis presence not specified Qualified Code(s): K21.9 - Gastro-esophageal reflux disease without esophagitis (9) HTN (hypertension) Current Visit: No Status: Chronic Assessment and plan: She is normotensive and will continue home medication Qualifiers: Hypertension type: essential hypertension Qualified Code(s): I10 - Essential (primary) hypertension (10) DVT prophylaxis Current Visit: Yes Status: Acute Assessment and plan: She is already on anticoagulation on warfarin therapy INR is 1.9 - Time Spent With Patient Total time spent is greater than 50% in coordination of care (as documented) at patient's floor/unit and/or counseling patient:40 mins
[2019-05-18] MEDS ORDERED: *HR* Warfarin 2 MG TABLET PO SCH (18:00)
[2019-05-18] MEDS: Acetaminophen 325 MG TABLET PO PRN (18:42)
[2019-05-18] MEDS: Vancomycin Oral Soln 125 MG/2.5 ML UDC PO SCH ×2 (20:59→21:01)
[2019-05-18] MEDS: Famotidine 20 MG TABLET PO SCH (21:01)
[2019-05-19 04:01] LABS: Basophils % 0.2 %; Eosinophils # 0.1 K/mcL (0.0-0.6); Hematocrit 37.7 % (35.3-44.9); Hemoglobin 11.8 g/dL (11.5-15.4); Lymphocytes # 1.1 K/mcL (0.6-4.6); Lymphocytes % 8.4 %; Mean Corpuscular HGB Conc 31.3 g/dL (31.6-35.5); Mean Corpuscular Hemoglobin 29.5 pg (28.0-33.3); Mean Corpuscular Volume 94.3 fL (83.0-100.0); Mean Platelet Volume 9.8 fL (9.4-12.4); Monocytes # 1.3 K/mcL (0.0-1.3); Monocytes % 9.9 %; Platelet Count 220 K/mcL (140-400); Red Cell Distribution Width 13.2 % (11.5-14.5); Segmented Neutrophils % 79.5 %; White Blood Count 12.6 K/mcL (4.3-11.1)
[2019-05-19 04:04] LABS: INR 2.6; Prothrombin Time 29.7 Seconds (9.4-12.1)
[2019-05-19 04:15] LABS: BUN/Creatinine Ratio 9 (6-26); Blood Urea Nitrogen 6 mg/dL (8-23); Calcium 8.3 mg/dL (8.6-10.3); Carbon Dioxide 27 mEq/L (23-29); Chloride 104 mEq/L (98-107); Glucose 164 mg/dL (70-105); Magnesium 1.9 mg/dL (1.6-2.6); Osmolality,Calculated 289 (280-300); Potassium 2.9 mEq/L (3.5-5.1); Sodium 139 mEq/L (136-145); eGFR For African Americans > 60 (> 60); eGFR For Non-African Americans > 60 (> 60)
[2019-05-19] MEDS ORDERED: Potassium Chloride 40 MEQ, Lidocaine 1% 2 ML in D5% in Water 500 ML IVPB ONE (05:09)
[2019-05-19] MEDS: Multivit/Ca/Min/Fe/FA 1 TAB TABLET PO SCH (09:03)
[2019-05-19] MEDS: Metoprolol XL (24 HR) Succ 25 MG TAB.ER.24H PO SCH (09:03)
[2019-05-19] MEDS: Famotidine 20 MG TABLET PO SCH (09:03)
[2019-05-19] MEDS: Vancomycin Oral Soln 125 MG/2.5 ML UDC PO SCH ×4 (09:04→20:45)
[2019-05-19] MEDS: (Mirabegron [Myrbetriq] 50 MG) PO SCH (09:05)
[2019-05-19] MEDS ORDERED: Furosemide 20 MG/2 ML VIAL IVP ONE (12:54)
[2019-05-19] MEDS ORDERED: Vancomycin Oral Soln 125 MG/2.5 ML UDC PO ONE (14:00)
--- NOTE | 2019-05-19 14:21 | Internal Med Progress Note ---
Hospitalist Progress Note - Encounter Date of Encounter: 05/19/19 Time of Encounter: 12:00 - Subjective Interval History: Was notified by nursing staff that the patient's family-daughters would like to have a treatment plan and discussion. Met with daughters at the patient's room updated them on the patient's status. Her daughter requested that we be more aggressive with regard to treatment of her C. difficile colitis citing concerns for patient's being somewhat altered with regard to her mentation and being septic. She endorses a history of recent hospitalization and treatment for ESBL type on using UTI. Patient received 3 doses of Invanz and fosmycin one dose prior to diarrhea illness. Patient continues to have loose BMs but denies any fevers or chills or worsening abdominal pain - Exam Vitals: Temp Pulse Resp BP Pulse Ox 98.3 F 101 21 158/78 97 05/19/19 11:03 05/19/19 11:03 05/19/19 11:03 05/19/19 11:03 05/19/19 11:03 Exam: GENERAL: NAD, A&O x3, pleasant and conversant her daughters when the bedside SKIN: No skin lesions or rashes, non-jaundiced but thin, dry and warm EYES: EOMI, PERRLA, no sclera icterus HENT: Head atraumatic, no facial asymmetry, frontal and maxillary sinus non- tender, normal hearing, oropharynx and mucosa dry but without any exudates NECK: No cervical lymphadenopathy, trachea midline, LUNGS: diminished but appears clear to auscultation, but with rales and slight wheeze. Non labored respirations HEART: Irregularly irregular rate and rhythm grade 2/6 systolic murmur appreciated ABDOMEN: soft, tender in bilateral lower quadrants although no rebound or guarding, ventral hernia noted. non-distended, bowel sounds x 4 normoactive EXTRMITIES: No LE asymmetry, No LE edema, pedal pulses 1+ and radial pulses 2 + and equal bilaterally NEURO: Speech and comprehension appears intact. PSYCH: Cooperative and cheerful, mood and affect is appropriate - Assessment and Plan (1) Clostridioides difficile diarrhea Current Visit: Yes Status: Acute Assessment and Plan: Appears to be improving had WBC is trending down she is afebrile however continued to have loose stools which is anticipated given that she was just started on treatment yesterday afternoon. Per a treatment plan discussion with the patient's daughters will increase vancomycin to 250mg orally 4 times a day and add metronidazole IV 500 every 8. Educated daughter that addition of probiotics at this point, is not deemed necessary and there is concern for translocation of the lactobacillus given the colitis. She definitely will be a good idea candidate for probiotics with future antibiotics. Patient with documented C. difficile associated diarrhea per Outpatient lab dated 05/27/2018 C. difficile toxin B+. We will initiate patient on vancomycin orally. Her abdomen exam was relatively benign, leukocytosis is mildly elevated she is afebrile. We will initiate patient on IV resuscitation due to anticipated electrolyte abnormalities with her multiple bowel movement (2) Malaise and fatigue Current Visit: Yes Status: Acute Assessment and Plan: improving Secondary to her C. difficile associated diarrhea and associated electrical abnormalities, poor oral intake anticipated to improve as this is addressed as stated above (3) Hypokalemia Current Visit: Yes Status: Acute Assessment and Plan: resolved. As aforementioned she has been placed on electrolyte replacement intravenously given that GI absorption is likely compromise with her colitis (4) Troponin I above reference range Current Visit: Yes Status: Acute Assessment and Plan: She has a significant cardiovascular history with prior [place] troponin is mildly elevated she denies any chest pain will monitor on telemetry, per ED physician troponin is being trended and trended down 0.04, 0.03. (5) Chronic anticoagulation Current Visit: Yes Status: Acute Assessment and Plan: INR 2.6 today will hold warfarin because of anticipated rise with addition of flagyl. INR is slightly subtherapeutic at 1.9 at admission. daily INR (6) Atrial fibrillation Current Visit: No Status: Chronic Assessment and Plan: She is rate controlled will continue on therapy with warfarin (7) Diabetes Current Visit: No Status: Chronic Assessment and Plan: Home oral diabetic medications will be held given her acute state she will be managed with insulin per protocol, POC 127 - 164 (8) GERD (gastroesophageal reflux disease) Current Visit: No Status: Chronic Assessment and Plan: Given a diagnosis of C. difficile colitis will recommend patient have a PPI free trial due to the increased correlation of PPI therapy use with broad-spectrum antibiotic therapy increasing the likelihood of developing C. difficile colitis. We will hold her PPI omeprazole, she is already also on a history jose eduardo ranitidine which will be continued. Dual therapy not clinically indicated (9) HTN (hypertension) Current Visit: No Status: Chronic Assessment and Plan: She is normotensive and will continue home medication (10) DVT prophylaxis Current Visit: Yes Status: Acute Assessment and Plan: She is already on anticoagulation on warfarin therapy INR is 1.9 - Time Spent with Patient Total time spent is greater than 50% in coordination of care (as documented) at patient's floor/unit and/or counseling patient: Greater than 35 minutes Internal Medicine: Result - Labs CBC & Chem 7: 05/19/19 03:12 05/19/19 09:27 Labs: Short CBC 05/19/19 Range/Units 03:12 WBC 12.6 H (4.3-11.1) K/mcL Hgb 11.8 (11.5-15.4) g/dL Hct 37.7 (35.3-44.9) % Plt Count 220 (140-400) K/mcL Neutrophils # 10.0 H (1.6-8.9) K/mcL BMP 05/18/19 05/19/19 05/19/19 11:40 03:12 09:27 Sodium 141 139 Potassium 3.3 L 2.9 L 3.6 Chloride 99 104 Carbon Dioxide 28 27 BUN 7 L 6 L Creatinine 0.74 0.65 Glucose 160 H 164 H Calcium 8.8 8.3 L Cardiac Enzymes 05/19/19 Range/Units 05:28 Troponin I < 0.03 (< 0.04) ng/mL - ABG Interpretation ABG results: PT/INR, D-dimer PT 29.7 Seconds (9.4-12.1) H 05/19/19 03:12 Consult Discharge Plan - Plan Referrals: Virginia Diaz, QA ARCHITECT [Primary Care Provider] - (Follow up has been requested ) (6) Atrial fibrillation Qualifiers: Atrial fibrillation type: chronic Qualified Code(s): I48.2 - Chronic atrial fibrillation (7) Diabetes Qualifiers: Diabetes mellitus type: type 2 Diabetes mellitus retirement insulin use: without continuous churn buttermaker use Diabetes mellitus complication status: without complication Qualified Code(s): E11.9 - Type 2 diabetes mellitus without complications (8) GERD (gastroesophageal reflux disease) Qualifiers: Esophagitis presence: esophagitis presence not specified Qualified Code(s): K21.9 - Gastro-esophageal reflux disease without esophagitis (9) HTN (hypertension) Qualifiers: Hypertension type: essential hypertension Qualified Code(s): I10 - Essential (primary) hypertension
[2019-05-19] MEDS: MetroNIDAZOLE 500 MG/100 ML 500 MG/100 ML BAG IVPB SCH ×2 (14:50→20:46)
[2019-05-19] MEDS: Acetaminophen 325 MG TABLET PO PRN (20:45)
[2019-05-19] MEDS ORDERED: Vancomycin Oral Soln 125 MG/2.5 ML UDC PO SCH (21:00)
[2019-05-20 04:36] LABS: Basophils # 0.1 K/mcL (0.0-0.2); Basophils % 0.5 %; Eosinophils # 0.2 K/mcL (0.0-0.6); Eosinophils % 1.9 %; Hematocrit 38.6 % (35.3-44.9); Hemoglobin 12.3 g/dL (11.5-15.4); Immature Granulocytes % 0.4 % (0-4); Lymphocytes # 1.5 K/mcL (0.6-4.6); Mean Corpuscular HGB Conc 31.9 g/dL (31.6-35.5); Mean Corpuscular Hemoglobin 29.4 pg (28.0-33.3); Mean Corpuscular Volume 92.3 fL (83.0-100.0); Mean Platelet Volume 9.7 fL (9.4-12.4); Monocytes # 1.1 K/mcL (0.0-1.3); Monocytes % 10.3 %; Neutrophils # 7.7 K/mcL (1.6-8.9); Platelet Count 222 K/mcL (140-400); Red Blood Count 4.18 M/mcL (3.82-4.97); Red Cell Distribution Width 12.9 % (11.5-14.5); Segmented Neutrophils % 72.9 %; White Blood Count 10.6 K/mcL (4.3-11.1)
[2019-05-20 04:56] LABS: BUN/Creatinine Ratio 8 (6-26); Blood Urea Nitrogen 5 mg/dL (8-23); Calcium 8.5 mg/dL (8.6-10.3); Carbon Dioxide 26 mEq/L (23-29); Chloride 104 mEq/L (98-107); Glucose 171 mg/dL (70-105); Magnesium 1.7 mg/dL (1.6-2.6); Osmolality,Calculated 287 (280-300); Potassium 3.1 mEq/L (3.5-5.1); Sodium 138 mEq/L (136-145); eGFR For African Americans > 60 (> 60); eGFR For Non-African Americans > 60 (> 60)
[2019-05-20] MEDS: Potassium Chloride Elixir 20 MEQ/15 ML UDC PO SCH ×2 (05:24→10:20)
[2019-05-20] MEDS: MetroNIDAZOLE 500 MG/100 ML 500 MG/100 ML BAG IVPB SCH ×3 (05:27→22:24)
[2019-05-20] MEDS: Multivit/Ca/Min/Fe/FA 1 TAB TABLET PO SCH (08:22)
[2019-05-20] MEDS: Metoprolol XL (24 HR) Succ 25 MG TAB.ER.24H PO SCH (08:22)
[2019-05-20] MEDS: Famotidine 20 MG TABLET PO SCH (08:22)
[2019-05-20] MEDS: Vancomycin Oral Soln 125 MG/2.5 ML UDC PO SCH ×4 (08:23→21:23)
[2019-05-20] MEDS: (Mirabegron [Myrbetriq] 50 MG) PO SCH (09:00)
[2019-05-20] MEDS: Potassium Chloride 40 MEQ in D5% in 0.9% NACL 1,000 ML IVC SCH (11:54)
--- NOTE | 2019-05-20 12:08 | Internal Med Progress Note ---
Hospitalist Progress Note - Encounter Date of Encounter: 05/20/19 Time of Encounter: 09:30 - Subjective Interval History: Ms Diaz reports fatigue malaise and poor appetite. Her daughter who is at the bedside is concerned about a progress indicating that she is worsening. Clinically patient appears to be improving her fatigue is expected given the chronicity for diarrheal illness. Labs were otherwise leukocytosis has resolved vitals are stable. - Exam Vitals: Temp Pulse Resp BP Pulse Ox 97.6 F 101 18 151/90 98 05/20/19 10:45 05/20/19 10:45 05/20/19 10:45 05/20/19 10:45 05/20/19 10:45 Exam: GENERAL: NAD, A&O x3, pleasant and conversant her daughters when the bedside SKIN: No skin lesions or rashes, non-jaundiced but thin, dry and warm EYES: EOMI, PERRLA, no sclera icterus HENT: Head atraumatic, no facial asymmetry, frontal and maxillary sinus non- tender, normal hearing, oropharynx and mucosa dry but without any exudates NECK: No cervical lymphadenopathy, trachea midline, LUNGS: diminished but appears clear to auscultation, but with rales and slight wheeze. Non labored respirations HEART: Irregularly irregular rate and rhythm grade 2/6 systolic murmur appreciated ABDOMEN: soft, tender in bilateral lower quadrants although no rebound or guarding, ventral hernia noted. non-distended, bowel sounds x 4 normoactive EXTRMITIES: No LE asymmetry, No LE edema, pedal pulses 1+ and radial pulses 2 + and equal bilaterally NEURO: Speech and comprehension appears intact. PSYCH: Cooperative and cheerful, mood and affect is appropriate - Assessment and Plan (1) Clostridioides difficile diarrhea Current Visit: Yes Status: Acute Assessment and Plan: Appears to be improving WBC has normalized. Only 1 loose stools documented she is afebrile. Had generalized fatigue is anticipated given that she was just started on treatment yesterday afternoon. Although daughters requesting physical therapy patient clinically does not seem fit to be evaluated by physical therapy. Per a treatment plan discussion with the patient's daughters will increase vancomycin to 250mg orally 4 times a day and add metronidazole IV 500 every 8. Educated daughter that addition of probiotics at this point, is not deemed necessary and there is concern for translocation of the lactobacillus given the colitis. She definitely will be a good idea candidate for probiotics with future antibiotics. Patient with documented C. difficile associated diarrhea per Outpatient lab dated 05/27/2018 C. difficile toxin B+. We will initiate patient on vancomycin orally. Her abdomen exam was relatively benign, leukocytosis is mildly elevated she is afebrile. We will initiate patient on IV resuscitation due to anticipa brandee electrolyte abnormalities with her multiple bowel movement (2) Malaise and fatigue Current Visit: Yes Status: Acute Assessment and Plan: Expected Secondary to her C. difficile associated diarrhea and associated electrical abnormalities, poor oral intake anticipated to improve as this is addressed as stated above. Since her oral intake is poor will supplement intravenously slowly she has not been able to tolerate IV fluids (3) Hypokalemia Current Visit: Yes Status: Acute Assessment and Plan: Potassium 3.1, since maintenance fluids were discontinued, plan per above As aforementioned she has been placed on electrolyte replacement intravenously given that GI absorption is likely compromise with her colitis (4) Troponin I above reference range Current Visit: Yes Status: Acute Assessment and Plan: She has a significant cardiovascular history with prior [place] troponin is mildly elevated she denies any chest pain will monitor on telemetry, per ED physician troponin is being trended and trended down 0.04, 0.03. Appears she complained of chest pain again today and troponin was trended but mildly elevated. During the encounter today she denies any chest pain or being diaphoretic. No ACS workup is indicated (5) Chronic anticoagulation Current Visit: Yes Status: Acute Assessment and Plan: INR 2.6 today will hold warfarin because of anticipated rise with addition of flagyl. INR is slightly subtherapeutic at 1.9 at admission. daily INR (6) Atrial fibrillation Current Visit: No Status: Chronic Assessment and Plan: She is rate controlled will continue on therapy with warfarin (7) Diabetes Current Visit: No Status: Chronic Assessment and Plan: Home oral diabetic medications will be held given her acute state she will be managed with insulin per protocol, POC 164-171 (8) GERD (gastroesophageal reflux disease) Current Visit: No Status: Chronic Assessment and Plan: Given a diagnosis of C. difficile colitis will recommend patient have a PPI free trial due to the increased correlation of PPI therapy use with broad-spectrum antibiotic therapy increasing the likelihood of developing C. difficile colitis. We will hold her PPI omeprazole, she is already also on a history jose eduardo ranitidine which will be continued. Dual therapy not clinically indicated (9) HTN (hypertension) Current Visit: No Status: Chronic Assessment and Plan: She is normotensive for her age and will continue home medication (10) DVT prophylaxis Current Visit: Yes Status: Acute Assessment and Plan: She is already on anticoagulation on warfarin therapy INR is 2.6 yesterday today pending - Time Spent with Patient Total time spent is greater than 50% in coordination of care (as documented) at patient's floor/unit and/or counseling patient: Greater than 35 minutes Internal Medicine: Result - Labs CBC & Chem 7: 05/20/19 04:22 05/20/19 04:22 Labs: Short CBC 05/20/19 Range/Units 04:22 WBC 10.6 (4.3-11.1) K/mcL Hgb 12.3 (11.5-15.4) g/dL Hct 38.6 (35.3-44.9) % Plt Count 222 (140-400) K/mcL Neutrophils # 7.7 (1.6-8.9) K/mcL BMP 05/20/19 04:22 Sodium 138 Potassium 3.1 L Chloride 104 Carbon Dioxide 26 BUN 5 L Creatinine 0.65 Glucose 171 H Calcium 8.5 L Cardiac Enzymes 05/20/19 Range/Units 04:22 Troponin I 0.04 H* (< 0.04) ng/mL - ABG Interpretation ABG results: PT/INR, D-dimer PT 29.7 Seconds (9.4-12.1) H 05/19/19 03:12 Consult Discharge Plan - Plan Referrals: Virginia Diaz, FREIGHT TRUCKER [Primary Care Provider] - (Follow up has been requested ) (6) Atrial fibrillation Qualifiers: Atrial fibrillation type: chronic Qualified Code(s): I48.2 - Chronic atrial fibrillation (7) Diabetes Qualifiers: Diabetes mellitus type: type 2 Diabetes mellitus residential insulin use: without residential use Diabetes mellitus complication status: without complication Qualified Code(s): E11.9 - Type 2 diabetes mellitus without complications (8) GERD (gastroesophageal reflux disease) Qualifiers: Esophagitis presence: esophagitis presence not specified Qualified Code(s): K21.9 - Gastro-esophageal reflux disease without esophagitis (9) HTN (hypertension) Qualifiers: Hypertension type: essential hypertension Qualified Code(s): I10 - Essential (primary) hypertension
[2019-05-20 13:10] LABS: INR 3.2; Prothrombin Time 35.9 Seconds (9.4-12.1)
[2019-05-21 02:08] LABS: Basophils # 0.1 K/mcL (0.0-0.2); Basophils % 0.5 %; Eosinophils # 0.2 K/mcL (0.0-0.6); Eosinophils % 2.1 %; Hematocrit 37.8 % (35.3-44.9); Immature Granulocytes % 0.4 % (0-4); Lymphocytes # 1.4 K/mcL (0.6-4.6); Lymphocytes % 14.8 %; Mean Corpuscular HGB Conc 31.7 g/dL (31.6-35.5); Mean Corpuscular Hemoglobin 29.1 pg (28.0-33.3); Mean Corpuscular Volume 91.7 fL (83.0-100.0); Mean Platelet Volume 9.8 fL (9.4-12.4); Monocytes % 9.9 %; Neutrophils # 6.9 K/mcL (1.6-8.9); Platelet Count 231 K/mcL (140-400); Red Blood Count 4.12 M/mcL (3.82-4.97); Red Cell Distribution Width 12.9 % (11.5-14.5); Segmented Neutrophils % 72.3 %; White Blood Count 9.6 K/mcL (4.3-11.1)
[2019-05-21 02:16] LABS: INR 3.1
[2019-05-21 02:27] LABS: BUN/Creatinine Ratio 7 (6-26); Blood Urea Nitrogen 4 mg/dL (8-23); Calcium 8.8 mg/dL (8.6-10.3); Carbon Dioxide 25 mEq/L (23-29); Chloride 106 mEq/L (98-107); Glucose 157 mg/dL (70-105); Magnesium 1.8 mg/dL (1.6-2.6); Osmolality,Calculated 286 (280-300); Potassium 3.6 mEq/L (3.5-5.1); Sodium 138 mEq/L (136-145); eGFR For African Americans > 60 (> 60); eGFR For Non-African Americans > 60 (> 60)
[2019-05-21] MEDS: MetroNIDAZOLE 500 MG/100 ML 500 MG/100 ML BAG IVPB SCH ×3 (05:38→20:53)
[2019-05-21] MEDS: Vancomycin Oral Soln 125 MG/2.5 ML UDC PO SCH ×4 (10:42→20:53)
[2019-05-21] MEDS: (Mirabegron [Myrbetriq] 50 MG) PO SCH (10:43)
[2019-05-21] MEDS: Famotidine 20 MG TABLET PO SCH (10:43)
[2019-05-21] MEDS: Metoprolol XL (24 HR) Succ 25 MG TAB.ER.24H PO SCH (10:43)
[2019-05-21] MEDS: Multivit/Ca/Min/Fe/FA 1 TAB TABLET PO SCH (10:43)
[2019-05-21] MEDS: Potassium Chloride 40 MEQ in D5% in 0.9% NACL 1,000 ML IVC SCH (16:26)
--- NOTE | 2019-05-21 19:44 | Internal Med Progress Note ---
Hospitalist Progress Note - Encounter Date of Encounter: 05/21/19 Time of Encounter: 09:45 - Subjective Interval History: Ms. Diza reports feeling better she was able to partake in physical therapy. She is to have stool frequency is subsided - Exam Vitals: Temp Pulse Resp BP Pulse Ox 97.7 F 99 16 154/74 98 05/21/19 19:06 05/21/19 19:06 05/21/19 19:06 05/21/19 19:06 05/21/19 19:06 Exam: GENERAL: NAD, A&O x3, pleasant and conversant SKIN: No skin lesions or rashes, non-jaundiced but thin, dry and warm EYES: EOMI, PERRLA, no sclera icterus HENT: Head atraumatic, no facial asymmetry, frontal and maxillary sinus non- tender, normal hearing, oropharynx and mucosa dry but without any exudates NECK: No cervical lymphadenopathy, trachea midline, LUNGS: diminished but appears clear to auscultation, but with rales and slight wheeze. Non labored respirations HEART: Irregularly irregular rate and rhythm grade 2/6 systolic murmur a ppreciated ABDOMEN: soft, tender in bilateral lower quadrants although no rebound or guarding, ventral hernia noted. non-distended, bowel sounds x 4 normoactive EXTRMITIES: No LE asymmetry, No LE edema, pedal pulses 1+ and radial pulses 2 + and equal bilaterally NEURO: Speech and comprehension appears intact. PSYCH: Cooperative and cheerful, mood and affect is appropriate - Assessment and Plan (1) Clostridioides difficile diarrhea Current Visit: Yes Status: Acute Assessment and Plan: Appears to be improving WBC has normalized. No formed stools yet. she is afebrile. Had generalized fatigue is anticipated given that she was just started on treatment yesterday afternoon. Although daughters requesting physical therapy patient clinically does not seem fit to be evaluated by physical therapy. Per a treatment plan discussion with the patient's daughters will increase vancomycin to 250mg orally 4 times a day and add metronidazole IV 500 every 8. Educated daughter that addition of probiotics at this point, is not deemed necessary and there is concern for translocation of the lactobacillus given the colitis. She definitely will be a good idea candidate for probiotics with future antibiotics. Patient with documented C. difficile associated diarrhea per Outpatient lab dated 05/27/2018 C. difficile toxin B+. We will initiate patient on vancomycin orally. Her abdomen exam was relatively benign, leukocytosis is mildly elevated she is afebrile. We will initiate patient on IV resuscitation due to anticipated electrolyte abnormalities with her multiple bowel movement (2) Malaise and fatigue Current Visit: Yes Status: Acute Assessment and Plan: Improving Expected Secondary to her C. difficile associated diarrhea and associated electrical abnormalities, poor oral intake anticipated to improve as this is addressed as stated above. Since her oral intake is poor will supplement intravenously slowly she has not been able to tolerate IV fluids (3) Hypokalemia Current Visit: Yes Status: Acute Assessment and Plan: Resolved As aforementioned she has been placed on electrolyte replacement intravenously slow infusion, can be discontinued tomorrow if tolerating takes improve given that GI absorption is likely compromise with her colitis (4) Troponin I above reference range Current Visit: Yes Status: Acute Assessment and Plan: Denies chest pain She has a significant cardiovascular history with prior [place] troponin is mildly elevated she denies any chest pain will monitor on telemetry, per ED physician troponin is being trended and trended down 0.04, 0.03. During the encounter today she denies any chest pain or being diaphoretic. No ACS workup is indicate d (5) Chronic anticoagulation Current Visit: Yes Status: Acute Assessment and Plan: INR 3.1 today will hold warfarin because of anticipated rise with addition of flagyl. INR is slightly subtherapeutic at 1.9 at admission. daily INR (6) Atrial fibrillation Current Visit: No Status: Chronic Assessment and Plan: She is rate controlled warfarin on hold inr therapeutic (7) Diabetes Current Visit: No Status: Chronic Assessment and Plan: Home oral diabetic medications will be held given her acute state she will be managed with insulin per protocol, POC at goal (8) GERD (gastroesophageal reflux disease) Current Visit: No Status: Chronic Assessment and Plan: Given a diagnosis of C. difficile colitis will recommend patient have a PPI free trial due to the increased correlation of PPI therapy use with broad-spectrum antibiotic therapy increasing the likelihood of developing C. difficile colitis. We will hold her PPI omeprazole, she is already also on a history jose eduardo ranitidine which will be continued. Dual therapy not clinically indicated (9) HTN (hypertension) Current Visit: No Status: Chronic Assessment and Plan: She is normotensive for her age and will continue home medication (10) DVT prophylaxis Current Visit: Yes Status: Acute Assessment and Plan: She is already on anticoagulation on warfarin therapy INR is 3.1 and therapeutic - Time Spent with Patient Total time spent is greater than 50% in coordination of care (as documented) at patient's floor/unit and/or counseling patient: Internal Medicine: Result - Labs CBC & Chem 7: 05/21/19 01:28 05/21/19 01:28 Labs: Short CBC 05/21/19 Range/Units 01:28 WBC 9.6 (4.3-11.1) K/mcL Hgb 12.0 (11.5-15.4) g/dL Hct 37.8 (35.3-44.9) % Plt Count 231 (140-400) K/mcL Neutrophils # 6.9 (1.6-8.9) K/mcL BMP 05/21/19 01:28 Sodium 138 Potassium 3.6 Chloride 106 Carbon Dioxide 25 BUN 4 L Creatinine 0.59 L Glucose 157 H Calcium 8.8 - ABG Interpretation ABG results: PT/INR, D-dimer PT 35.0 Seconds (9.4-12.1) H 05/21/19 01:28 Consult Discharge Plan - Plan Referrals: Virginia Diaz, ROOFING APPLICATOR [Primary Care Provider] - (Follow up has been requested ) (6) Atrial fibrillation Qualifiers: Atrial fibrillation type: chronic Qualified Code(s): I48.2 - Chronic atrial fibrillation (7) Diabetes Qualifiers: Diabetes mellitus type: type 2 Diabetes mellitus penitentiary insulin use: without superintendent container terminal use Diabetes mellitus complication status: without complication Qualified Code(s): E11.9 - Type 2 diabetes mellitus without complications (8) GERD (gastroesophageal reflux disease) Qualifiers: Esophagitis presence: esophagitis presence not specified Qualified Code(s): K21.9 - Gastro-esophageal reflux disease without esophagitis (9) HTN (hypertension) Qualifiers: Hypertension type: essential hypertension Qualified Code(s): I10 - Essential (primary) hypertension
[2019-05-22 01:38] LABS: INR 2.8; Prothrombin Time 31.9 Seconds (9.4-12.1)
[2019-05-22] MEDS: MetroNIDAZOLE 500 MG/100 ML 500 MG/100 ML BAG IVPB SCH ×3 (05:05→22:27)
[2019-05-22] MEDS: Multivit/Ca/Min/Fe/FA 1 TAB TABLET PO SCH (09:45)
[2019-05-22] MEDS: Metoprolol XL (24 HR) Succ 25 MG TAB.ER.24H PO SCH (09:45)
[2019-05-22] MEDS: Potassium Chloride 40 MEQ in D5% in 0.9% NACL 1,000 ML IVC SCH (09:45)
[2019-05-22] MEDS: Famotidine 20 MG TABLET PO SCH (09:45)
[2019-05-22] MEDS: (Mirabegron [Myrbetriq] 50 MG) PO SCH (09:46)
[2019-05-22] MEDS: Vancomycin Oral Soln 125 MG/2.5 ML UDC PO SCH ×4 (09:46→22:27)
[2019-05-22] MEDS: Nitrofurantoin (BID) 100 MG CAPSULE PO SCH ×2 (09:54→18:07)
--- NOTE | 2019-05-22 13:35 | Internal Med Progress Note ---
Hospitalist Progress Note - Encounter Date of Encounter: 05/22/19 Time of Encounter: 09:40 - Subjective Interval History: Patient continues to have loose stools although the frequency appears to be improving. She states that she was able to eat this morning after several days. Denies any chest pain or palpitations. No significant abdominal pain. Lying in bed comfortably. - Exam Vitals: Temp Pulse Resp BP Pulse Ox 97.5 F L 102 16 126/68 96 05/22/19 11:48 05/22/19 11:48 05/22/19 11:48 05/22/19 11:48 05/22/19 11:48 Exam: General: Patient is alert, mild distress, oriented x 3 ENT: Mucous membranes moist Respiratory: Good respiratory effort. Normal breath sounds. No wheezing or crackles. Cardiovascular: Regular rate and rhythm. s1 and s2 normal No clicks, rubs, gallops, or murmurs. No pedal edema Abdomen: Abdomen is soft, mild generalized tenderness. Bowel sounds are present Musculoskeletal: Spontaneously moving all extremities Skin: warm, dry, intact. Neuro: Alert oriented x 3 normal cranial nerves, no focal deficits - Assessment and Plan (1) Clostridioides difficile diarrhea Current Visit: Yes Status: Acute (2) Atrial fibrillation Current Visit: Yes Status: Chronic (3) GERD (gastroesophageal reflux disease) Current Visit: No Status: Chronic (4) HTN (hypertension) Current Visit: No Status: Chronic (5) Diabetes Current Visit: Yes Status: Chronic (6) Malaise and fatigue Current Visit: Yes Status: Acute (7) Hypokalemia Current Visit: Yes Status: Acute (8) Troponin I above reference range Current Visit: Yes Status: Acute (9) Chronic anticoagulation Current Visit: Yes Status: Acute (10) DVT prophylaxis Current Visit: Yes Status: Acute DVT Prophylaxis: On Coumadin - Summary of Assessment and Plan Summary of Assessment and Plan: C. difficile diarrhea/colitis: Continue oral vancomycin. Symptomatic treatment. Atrial fibrillation: Chronic. Continue metoprolol. On anticoagulation with Coumadin. UTI: Urine culture positive for enterococcus faecium. Sensitive to Macrobid. We will complete 5 day course. Generalized weakness, malaise and fatigue: Continue physical therapy. Placement to skilled rehabilitation when medically stable. Essential hypertension: Well controlled. If patient's status continues to improve and diarrhea continues to improve, pos sible discharge tomorrow if able to obtain shelter rehabilitation placement. - Time Spent with Patient Total time spent is greater than 50% in coordination of care (as documented) at patient's floor/unit and/or counseling patient: Internal Medicine: Result - Labs CBC & Chem 7: 05/21/19 01:28 05/21/19 01:28 - ABG Interpretation ABG results: PT/INR, D-dimer PT 31.9 Seconds (9.4-12.1) H 05/22/19 00:52 Consult Discharge Plan - Plan Referrals: Virginia Diaz, WAFER MOUNTER [Primary Care Provider] - (Follow up has been requested ) _ (2) Atrial fibrillation Qualifiers: Atrial fibrillation type: chronic Qualified Code(s): I48.2 - Chronic atrial fibrillation (3) GERD (gastroesophageal reflux disease) Qualifiers: Esophagitis presence: esophagitis presence not specified Qualified Code(s): K21.9 - Gastro-esophageal reflux disease without esophagitis (4) HTN (hypertension) Qualifiers: Hypertension type: essential hypertension Qualified Code(s): I10 - Essential (primary) hypertension (5) Diabetes Qualifiers: Diabetes mellitus type: type 2 Diabetes mellitus ad terminal makeup operator insulin use: without ad terminal makeup operator use Diabetes mellitus complication status: without complication Qualified Code(s): E11.9 - Type 2 diabetes mellitus without complications
[2019-05-22] MEDS ORDERED: Warfarin perPT PO PRN (18:00)
[2019-05-22] MEDS ORDERED: *HR* Warfarin 1 MG TABLET PO ONE (18:00)
[2019-05-23] MEDS: MetroNIDAZOLE 500 MG/100 ML 500 MG/100 ML BAG IVPB SCH (05:03)
[2019-05-23 06:29] LABS: INR 2.6; Prothrombin Time 29.8 Seconds (9.4-12.1)
[2019-05-23] MEDS: Famotidine 20 MG TABLET PO SCH (08:12)
[2019-05-23] MEDS: Metoprolol XL (24 HR) Succ 25 MG TAB.ER.24H PO SCH (08:12)
[2019-05-23] MEDS: (Mirabegron [Myrbetriq] 50 MG) PO SCH (08:12)
[2019-05-23] MEDS: Vancomycin Oral Soln 125 MG/2.5 ML UDC PO SCH ×2 (08:12→13:26)
[2019-05-23] MEDS: Nitrofurantoin (BID) 100 MG CAPSULE PO SCH (08:12)
[2019-05-23] MEDS: Multivit/Ca/Min/Fe/FA 1 TAB TABLET PO SCH (08:12)
[2019-05-23 10:54] VITALS: BP 149/91
--- NOTE | 2019-05-23 11:32 | Discharge Summary ---
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 difficile colitis/diarrhea. She was placed on oral vancomycin and Flagyl with slow improvement in her symptoms. She is now doing much better and is clinically stable for discharge to skilled rehabilitation. She will continue to take oral vancomycin to complete treatment for C. difficile. Orders not resulted at time of discharge: Pending orders 05/18/19 11:29 EKG [ECG 12 lead ECG] [ECG] Stat 05/24/19 04:00 PT/INR [Prothrombin Time INR] [COAG] AM 0400 05/25/19 04:00 PT/INR [Prothrombin Time INR] [COAG] AM 0400 05/26/19 04:00 PT/INR [Prothrombin Time INR] [COAG] AM 0400 05/27/19 04:00 PT/INR [Prothrombin Time INR] [COAG] AM 0400 Date of Encounter: 05/23/19 Time of Encounter: 09:00 - Discharge Diagnosis (1) Clostridioides difficile diarrhea Priority: Primary Status: Acute (2) Atrial fibrillation Priority: Secondary Status: Chronic Qualifiers: Atrial fibrillation type: chronic Qualified Code(s): I48.2 - Chronic atrial fibrillation (3) GERD (gastroesophageal reflux disease) Priority: Secondary Status: Chronic Qualifiers: Esophagitis presence: esophagitis presence not specified Qualified Code(s): K21.9 - Gastro-esophageal reflux disease without esophagitis (4) HTN (hypertension) Priority: Secondary Status: Chronic Qualifiers: Hypertension type: essential hypertension Qualified Code(s): I10 - Essential (primary) hypertension (5) Diabetes Priority: Secondary Status: Chronic Qualifiers: Diabetes mellitus type: type 2 Diabetes mellitus assisted insulin use: without assisted use Diabetes mellitus complication status: without complication Qualified Code(s): E11.9 - Type 2 diabetes mellitus without complications (6) Malaise and fatigue Priority: Secondary Status: Acute (7) Hypokalemia Priority: Secondary Status: Acute (8) Troponin I above reference range Priority: Secondary Status: Acute (9) Chronic anticoagulation Priority: Secondary Status: Acute (10) DVT prophylaxis Priority: Secondary Status: Acute Hospital course: Ms. Diaz is a 88 year old female Discharge discussed with: patient, nurse - Time Spent with Patient Total time spent providing and/or coordinating discharge services: Time spent: Greater than 30 minutes (35 min) - Discharge Medications Prescriptions: New Vancomycin Oral Soln [Firvanq] 250 mg PO QID 11 Days udc Nitrofurantoin (BID) [Macrobid] 100 mg PO BIDWM #7 capsule Continued Simvastatin [Zocor] 20 mg PO HS Potassium Chloride [K-Tab ER] 20 meq PO DAILY Glimepiride [Amaryl] 2 mg PO DAILY Furosemide [Lasix] 40 mg PO BID Nitroglycerin [Nitrostat] 0.4 mg SL Q5M PRN PRN Reason: Chest Pain Ferrous Sulfate [Iron] 325 mg PO DAILY Oxygen 2 l NS HS Multivitamin [One Daily Multivitamin] 1 tab PO DAILY Albuterol Sulfate [Proair Hfa] 2 puff IH Q4H PRN PRN Reason: Shortness Of Breath Fluticasone Propionate Nasal [Flonase] 1 spray IN BID PRN PRN Reason: Allergy Symptoms Warfarin [Coumadin] 2 mg PO DAILY Ranitidine HCl [Heartburn Relief] 150 mg PO BID DULoxetine [Cymbalta] 30 mg PO DAILY Metoprolol Succinate [Toprol Xl] 25 mg PO DAILY Mirabegron [Myrbetriq] 50 mg PO DAILY Acetaminophen [Tylenol Arthritis] 1,300 mg PO BID Omeprazole [PriLOSEC] 20 mg PO DAILY HYDROcodone/Acet 7.5/325 mg [[place] 7.5-325 mg] 0.5 tab PO TID PRN 5 Days #15 tablet PRN Reason: Pain Home Medications: Ferrous Sulfate [Iron] 325 mg PO DAILY 10/23/17 [History] Furosemide [Lasix] 40 mg PO BID 10/23/17 [History] Glimepiride [Amaryl] 2 mg PO DAILY 10/23/17 [History] Nitroglycerin [Nitrostat] 0.4 mg SL Q5M PRN 10/23/17 [History] Potassium Chloride [K-Tab ER] 20 meq PO DAILY 10/23/17 [History] Simvastatin [Zocor] 20 mg PO HS 10/23/17 [History] Albuterol Sulfate [Proair Hfa] 2 puff IH Q4H PRN 01/29/18 [History] Multivitamin [One Daily Multivitamin] 1 tab PO DAILY 01/29/18 [History] Oxygen 2 l NS HS 01/29/18 [History] Fluticasone Propionate Nasal [Flonase] 1 spray IN BID PRN 05/07/19 [History] Ranitidine HCl [Heartburn Relief] 150 mg PO BID 05/07/19 [History] Warfarin [Coumadin] 2 mg PO DAILY 05/07/19 [History] Acetaminophen [Tylenol Arthritis] 1,300 mg PO BID 05/08/19 [History] DULoxetine [Cymbalta] 30 mg PO DAILY 05/08/19 [History] Metoprolol Succinate [Toprol Xl] 25 mg PO DAILY 05/08/19 [History] Mirabegron [Myrbetriq] 50 mg PO DAILY 05/08/19 [History] Omeprazole [PriLOSEC] 20 mg PO DAILY 05/18/19 [History] HYDROcodone/Acet 7.5/325 mg [[place] 7.5-325 mg] 0.5 tab PO TID PRN 5 Days #15 tablet 05/23/19 [Rx] Nitrofurantoin (BID) [Macrobid] 100 mg PO BIDWM #7 capsule 05/23/19 [Rx] Vancomycin Oral Soln [Firvanq] 250 mg PO QID 11 Days udc 05/23/19 [Rx] Allergies/Adverse Reactions: Allergy/AdvReac Type Severity Reaction Status Date / Time Penicillins AdvReac Anaphylaxis Verified 05/08/19 08:37 Date of admission: 05/21/19 14:34 Primary care physician: Virginia Diaz CNP Consults: 05/18/19 16:46 Consult to [employer] [CONS] Routine Reason for SW Consult: possible needs regarding nursing, PT, and OT at D/C 05/20/19 05:38 Consult to Occupational Therapy [CONS] Routine Comment: Evaluate, develop and implement POC Reason for Consult: weakness Does patient have active BEDREST order?: Yes Is patient medically & hemodynamically stable?: Yes Patient assessed for mobility or mobilized this visit?: Yes Consult to Physical Therapy [CONS] Routine Comment: Evaluate, develop and implement POC Reason for Consult: weakness Does patient have active BEDREST order?: Yes Is patient medically & hemodynamically stable?: Yes Patient assessed for mobility or mobilized this visit?: Yes Discharging clinician: Venessa Yañez Anticipated date of discharge: 05/23/19 - Constitutional Vitals: Temp Pulse Resp BP Pulse Ox 98.5 F 104 18 149/91 96 05/23/19 10:51 05/23/19 10:51 05/23/19 10:51 05/23/19 10:51 05/23/19 10:51 General appearance: Present: cooperative, A&O X 3, pleasant, no acute distress, answers questions appropriately Exam: General: Patient is alert, no acute distress, oriented x 3 Respiratory: Normal breath sounds. No wheezing or crackles. Cardiovascular: Regular rate and rhythm. s1 and s2 normal No clicks, rubs, gallops, or murmurs. No pedal edema Abdomen: Abdomen is soft, nontender. Bowel sounds are present Musculoskeletal: Spontaneously moving all extremities Skin: warm, dry, intact. Neuro: Alert oriented x 3 normal cranial nerves, no focal deficits - Patient Status Disposition: Transfer SNF Condition: Fair Functional capacity at discharge: uses cane/walker Overall status at discharge: patient is progressing back to baseline - Discharge Instructions Instructions: Atrial Fibrillation (DC), Diabetes Mellitus Type 2 in Adults (DC) Follow Up With: Virginia Diaz, [employer] [Primary Care Provider] - (Follow up has been requested ) Forms: ED Satisfaction Letter - Diet and Activity Activity: increase activity as tolerated Diet: diabetic diet, low fat, low cholesterol, low salt diet
--- NOTE | 2019-05-23 11:38 | Physician Discharge Referral ---
ExtendedCare Referral Info Provider in Charge after Transfer: PCP Institutional Level of Care: Skilled - Diagnosis (1) Clostridioides difficile diarrhea Priority: Primary Status: Acute (2) Atrial fibrillation Priority: Secondary Status: Chronic (3) GERD (gastroesophageal reflux disease) Priority: Secondary Status: Chronic (4) HTN (hypertension) Priority: Secondary Status: Chronic (5) Diabetes Priority: Secondary Status: Chronic (6) Malaise and fatigue Priority: Secondary Status: Acute (7) Hypokalemia Priority: Secondary Status: Acute (8) Troponin I above reference range Priority: Secondary Status: Acute (9) Chronic anticoagulation Priority: Secondary Status: Acute (10) DVT prophylaxis Priority: Secondary Status: Acute Prognosis: Fair Aware of Diagnosis: Patient, Family Aware of Prognosis: Patient, Family - Transfer Medications Prescriptions: Nitrofurantoin (BID) [Macrobid] 100 mg PO BIDWM #7 capsule HYDROcodone/Acet 7.5/325 mg [[place] 7.5-325 mg] 0.5 tab PO TID PRN 5 Days #15 tablet PRN Reason: Pain Home Medications: Ferrous Sulfate [Iron] 325 mg PO DAILY 10/23/17 [History] Furosemide [Lasix] 40 mg PO BID 10/23/17 [History] Glimepiride [Amaryl] 2 mg PO DAILY 10/23/17 [History] Nitroglycerin [Nitrostat] 0.4 mg SL Q5M PRN 10/23/17 [History] Potassium Chloride [K-Tab ER] 20 meq PO DAILY 10/23/17 [History] Simvastatin [Zocor] 20 mg PO HS 10/23/17 [History] Albuterol Sulfate [Proair Hfa] 2 puff IH Q4H PRN 01/29/18 [History] Multivitamin [One Daily Multivitamin] 1 tab PO DAILY 01/29/18 [History] Oxygen 2 l NS HS 01/29/18 [History] Fluticasone Propionate Nasal [Flonase] 1 spray IN BID PRN 05/07/19 [History] Ranitidine HCl [Heartburn Relief] 150 mg PO BID 05/07/19 [History] Warfarin [Coumadin] 2 mg PO DAILY 05/07/19 [History] Acetaminophen [Tylenol Arthritis] 1,300 mg PO BID 05/08/19 [History] DULoxetine [Cymbalta] 30 mg PO DAILY 05/08/19 [History] Metoprolol Succinate [Toprol Xl] 25 mg PO DAILY 05/08/19 [History] Mirabegron [Myrbetriq] 50 mg PO DAILY 05/08/19 [History] Omeprazole [PriLOSEC] 20 mg PO DAILY 05/18/19 [History] HYDROcodone/Acet 7.5/325 mg [[place] 7.5-325 mg] 0.5 tab PO TID PRN 5 Days #15 tablet 05/23/19 [Rx] Nitrofurantoin (BID) [Macrobid] 100 mg PO BIDWM #7 capsule 05/23/19 [Rx] Vancomycin Oral Soln [Firvanq] 250 mg PO QID 11 Days udc 05/23/19 [Rx] Allergies/Adverse Reactions: Allergy/AdvReac Type Severity Reaction Status Date / Time Penicillins AdvReac Anaphylaxis Verified 05/08/19 08:37 - Respiratory Orders Oxygen / L per min (Keep sats greater than 88%) Smoking Cessation: Smoking cessation has been advised. For more information, call the [employer] Tobacco Quit Line at 5-941-YZXW-NOW. - Advance Directives Code Status: DNR-Arrest - Mobility Orders Ambulate (per PT) - Rehabiliation Orders Rehab Potential: Fair Rehab Orders: Evaluation for Physical Therapy, Evaluation for Occupational Therapy - Diet Orders Cardiac House Supplement per Dietary: Ensure 1-2 cans 3 times a day CERTIFICATION: I certify that the transfer of the above named patient to an Extended Care Facility is necessary for the continuing treatment of the diagnosis listed. The above information is true and accurate reflection of patient's current condition. Confidential - Redisclosure prohibited without a patient's written consent.
[2019-05-23] MEDS ORDERED: *HR* Warfarin 2 MG TABLET PO ONE (18:00)
== END 2019-05-23 16:21 | DRG 372 ==
LOC: SUATTDRO → 3BNU 11:25 → EMEROOARM 11:25 → SUATTDRO 14:18 → 3BNU 15:30 → SUATTDRO 05-21 14:34
PROVIDERS: ADMIT Pharmacist; ATTEND Internal Medicine

== ENCOUNTER 2019-06-21 20:55 | Inpatient (IN) ==
[2019-06-21] MEDS ORDERED: Nitroglycerin 0.4 MG TAB.SUBL SL PRN (23:22)
[2019-06-22 00:38] LABS: Basophils % 0.2 %; Red Cell Distribution Width 13.8 % (11.5-14.5)
[2019-06-22 00:40] LABS: Basophils # 0.1 K/mcL (0.0-0.2); Eosinophils % 0.1 %; Hematocrit 42.7 % (35.3-44.9); Hemoglobin 13.9 g/dL (11.5-15.4); Immature Granulocytes % 1.1 % (0-4); Lymphocytes # 0.6 K/mcL (0.6-4.6); Mean Corpuscular HGB Conc 32.6 g/dL (31.6-35.5); Mean Corpuscular Hemoglobin 28.9 pg (28.0-33.3); Mean Corpuscular Volume 88.8 fL (83.0-100.0); Mean Platelet Volume 9.8 fL (9.4-12.4); Monocytes # 0.8 K/mcL (0.0-1.3); Monocytes % 2.7 %; Platelet Count 241 K/mcL (140-400); Red Blood Count 4.81 M/mcL (3.82-4.97); Segmented Neutrophils % 93.9 %; White Blood Count 28.7 K/mcL (4.3-11.1)
[2019-06-22 00:57] LABS: BUN/Creatinine Ratio 20 (6-26); Blood Urea Nitrogen 14 mg/dL (8-23); Calcium 9.3 mg/dL (8.6-10.3); Carbon Dioxide 29 mEq/L (23-29); Chloride 97 mEq/L (98-107); Glucose 222 mg/dL (70-105); Osmolality,Calculated 293 (280-300); Potassium 3.7 mEq/L (3.5-5.1); Sodium 138 mEq/L (136-145); eGFR For African Americans > 60 (> 60); eGFR For Non-African Americans > 60 (> 60)
[2019-06-22 01:06] LABS: Platelet Estimate Normal (Normal)
[2019-06-22] MEDS: Vancomycin Oral Soln 125 MG/2.5 ML UDC PO SCH ×5 (02:56→21:36)
[2019-06-22] MEDS ORDERED: GlipiZIDE 5 MG TABLET PO SCH (08:00)
[2019-06-22] MEDS: Venlafaxine XR (24 HR) 37.5 MG CAP.ER.24H PO SCH (10:32)
[2019-06-22] MEDS: MetroNIDAZOLE 500 MG/100 ML 500 MG/100 ML BAG IVPB SCH ×3 (10:32→23:24)
[2019-06-22] MEDS: Famotidine 20 MG TABLET PO SCH ×2 (10:32→18:04)
[2019-06-22] MEDS: Metoprolol XL (24 HR) Succ 25 MG TAB.ER.24H PO SCH (10:33)
[2019-06-22] MEDS: *HR* HYDROcodone/Acet 7.5/325 mg TABLET PO PRN ×2 (10:45→21:36)
[2019-06-22] MEDS: Insulin LISPRO 300 UNITS/3 ML VIAL SQ SCH ×2 (12:37→17:51)
[2019-06-22] MEDS ORDERED: *HR* OxyCODONE Immed Rel 5 MG TABLET PO ONE (13:30)
[2019-06-22] MEDS: *HR* Rivaroxaban 10 MG TABLET PO SCH (17:51)
[2019-06-23] MEDS: Vancomycin Oral Soln 125 MG/2.5 ML UDC PO SCH ×4 (08:08→20:48)
[2019-06-23] MEDS: *HR* HYDROcodone/Acet 7.5/325 mg TABLET PO PRN ×2 (08:08→17:53)
[2019-06-23] MEDS: Famotidine 20 MG TABLET PO SCH ×2 (08:08→17:00)
[2019-06-23] MEDS: MetroNIDAZOLE 500 MG/100 ML 500 MG/100 ML BAG IVPB SCH ×2 (08:08→16:55)
[2019-06-23] MEDS: Venlafaxine XR (24 HR) 37.5 MG CAP.ER.24H PO SCH (08:08)
[2019-06-23] MEDS: Metoprolol XL (24 HR) Succ 25 MG TAB.ER.24H PO SCH (08:08)
[2019-06-23] MEDS: Insulin LISPRO 300 UNITS/3 ML VIAL SQ SCH ×3 (08:09→17:00)
[2019-06-23 10:35] LABS: Hematocrit 39.4 % (35.3-44.9); Hemoglobin 12.5 g/dL (11.5-15.4); Mean Corpuscular HGB Conc 31.7 g/dL (31.6-35.5); Mean Corpuscular Hemoglobin 28.3 pg (28.0-33.3); Mean Corpuscular Volume 89.3 fL (83.0-100.0); Mean Platelet Volume 9.8 fL (9.4-12.4); Platelet Count 197 K/mcL (140-400); Red Blood Count 4.41 M/mcL (3.82-4.97); Red Cell Distribution Width 13.7 % (11.5-14.5)
[2019-06-23 10:59] LABS: BUN/Creatinine Ratio 22 (6-26); Blood Urea Nitrogen 16 mg/dL (8-23); Calcium 8.7 mg/dL (8.6-10.3); Carbon Dioxide 22 mEq/L (23-29); Chloride 99 mEq/L (98-107); Glucose 208 mg/dL (70-105); Osmolality,Calculated 283 (280-300); Potassium 3.5 mEq/L (3.5-5.1); Sodium 133 mEq/L (136-145); eGFR For African Americans > 60 (> 60); eGFR For Non-African Americans > 60 (> 60)
[2019-06-23] MEDS: Promethazine 25 MG in 0.9 % Sodium Chloride 50 ML IVPB PRN (12:55)
[2019-06-23] MEDS: *HR* Rivaroxaban 10 MG TABLET PO SCH (17:00)
[2019-06-24] MEDS: MetroNIDAZOLE 500 MG/100 ML 500 MG/100 ML BAG IVPB SCH ×2 (00:05→10:34)
[2019-06-24] MEDS: Vancomycin Oral Soln 125 MG/2.5 ML UDC PO SCH ×5 (10:10→21:10)
[2019-06-24] MEDS: Insulin LISPRO 300 UNITS/3 ML VIAL SQ SCH ×3 (10:10→17:41)
[2019-06-24] MEDS: Famotidine 20 MG TABLET PO SCH ×2 (10:10→17:49)
[2019-06-24] MEDS: Venlafaxine XR (24 HR) 37.5 MG CAP.ER.24H PO SCH (10:11)
[2019-06-24] MEDS: *HR* HYDROcodone/Acet 7.5/325 mg TABLET PO PRN ×2 (10:11→17:46)
[2019-06-24] MEDS: Metoprolol XL (24 HR) Succ 25 MG TAB.ER.24H PO SCH (10:11)
[2019-06-24] MEDS: Promethazine 25 MG in 0.9 % Sodium Chloride 50 ML IVPB PRN (12:20)
[2019-06-24] MEDS: *HR* Rivaroxaban 10 MG TABLET PO SCH (17:48)
[2019-06-25] MEDS: Venlafaxine XR (24 HR) 37.5 MG CAP.ER.24H PO SCH (08:02)
[2019-06-25] MEDS: Famotidine 20 MG TABLET PO SCH ×2 (08:02→16:34)
[2019-06-25] MEDS: Metoprolol XL (24 HR) Succ 25 MG TAB.ER.24H PO SCH (08:02)
[2019-06-25] MEDS: Vancomycin Oral Soln 125 MG/2.5 ML UDC PO SCH ×4 (08:03→20:00)
[2019-06-25] MEDS: Insulin LISPRO 300 UNITS/3 ML VIAL SQ SCH ×3 (08:03→16:35)
[2019-06-25] MEDS ORDERED: Dextrose Gel 15 GM/37.5 ML TUBE PO PRN ×2 (09:35)
[2019-06-25] MEDS ORDERED: *HR* Dextrose 50 % in Water (Syg) 50 ML SYRINGE IVP PRN (09:35)
[2019-06-25] MEDS ORDERED: D5% in Water 1,000 ML IVC PRN (09:35)
[2019-06-25] MEDS: *HR* Rivaroxaban 10 MG TABLET PO SCH (16:34)
[2019-06-26] MEDS: Famotidine 20 MG TABLET PO SCH ×2 (07:36→16:31)
[2019-06-26] MEDS: Vancomycin Oral Soln 125 MG/2.5 ML UDC PO SCH ×4 (07:37→20:06)
[2019-06-26] MEDS: Insulin LISPRO 300 UNITS/3 ML VIAL SQ SCH ×3 (07:37→16:32)
[2019-06-26] MEDS: Metoprolol XL (24 HR) Succ 25 MG TAB.ER.24H PO SCH (07:37)
[2019-06-26] MEDS: Venlafaxine XR (24 HR) 37.5 MG CAP.ER.24H PO SCH (07:37)
[2019-06-26 12:16] LABS: Hematocrit 35.3 % (35.3-44.9); Hemoglobin 11.5 g/dL (11.5-15.4); Mean Corpuscular HGB Conc 32.6 g/dL (31.6-35.5); Mean Corpuscular Volume 89.1 fL (83.0-100.0); Platelet Count 261 K/mcL (140-400); Red Blood Count 3.96 M/mcL (3.82-4.97); Red Cell Distribution Width 13.6 % (11.5-14.5); White Blood Count 10.4 K/mcL (4.3-11.1)
[2019-06-26 12:38] LABS: BUN/Creatinine Ratio 13 (6-26); Blood Urea Nitrogen 7 mg/dL (8-23); Calcium 8.7 mg/dL (8.6-10.3); Carbon Dioxide 29 mEq/L (23-29); Chloride 103 mEq/L (98-107); Glucose 168 mg/dL (70-105); Osmolality,Calculated 292 (280-300); Potassium 3.3 mEq/L (3.5-5.1); Sodium 140 mEq/L (136-145); eGFR For African Americans > 60 (> 60); eGFR For Non-African Americans > 60 (> 60)
[2019-06-26] MEDS: *HR* Rivaroxaban 10 MG TABLET PO SCH (16:31)
[2019-06-27] MEDS: Metoprolol XL (24 HR) Succ 25 MG TAB.ER.24H PO SCH (08:35)
[2019-06-27] MEDS: Venlafaxine XR (24 HR) 37.5 MG CAP.ER.24H PO SCH (08:35)
[2019-06-27] MEDS: Vancomycin Oral Soln 125 MG/2.5 ML UDC PO SCH ×4 (08:35→21:21)
[2019-06-27] MEDS: Insulin LISPRO 300 UNITS/3 ML VIAL SQ SCH ×3 (08:35→17:22)
[2019-06-27] MEDS: Famotidine 20 MG TABLET PO SCH ×2 (08:35→17:22)
[2019-06-27] MEDS: Furosemide 40 MG TABLET PO SCH (17:22)
[2019-06-27] MEDS: *HR* Rivaroxaban 10 MG TABLET PO SCH (17:22)
[2019-06-28] MEDS: Vancomycin Oral Soln 125 MG/2.5 ML UDC PO SCH ×4 (08:28→22:30)
[2019-06-28] MEDS: Famotidine 20 MG TABLET PO SCH ×2 (08:28→17:31)
[2019-06-28] MEDS: Metoprolol XL (24 HR) Succ 25 MG TAB.ER.24H PO SCH (08:28)
[2019-06-28] MEDS: Venlafaxine XR (24 HR) 37.5 MG CAP.ER.24H PO SCH (08:28)
[2019-06-28] MEDS: Furosemide 40 MG TABLET PO SCH ×2 (08:29→17:31)
[2019-06-28] MEDS: GlipiZIDE 5 MG TABLET PO SCH (08:29)
[2019-06-28] MEDS: Insulin LISPRO 300 UNITS/3 ML VIAL SQ SCH ×3 (08:29→17:31)
[2019-06-28] MEDS: *HR* Rivaroxaban 10 MG TABLET PO SCH (17:31)
[2019-06-29] MEDS: Famotidine 20 MG TABLET PO SCH ×2 (08:38→17:17)
[2019-06-29] MEDS: Metoprolol XL (24 HR) Succ 25 MG TAB.ER.24H PO SCH (08:38)
[2019-06-29] MEDS: GlipiZIDE 5 MG TABLET PO SCH (08:38)
[2019-06-29] MEDS: Furosemide 40 MG TABLET PO SCH ×2 (08:38→17:17)
[2019-06-29] MEDS: Venlafaxine XR (24 HR) 37.5 MG CAP.ER.24H PO SCH (08:38)
[2019-06-29] MEDS: Vancomycin Oral Soln 125 MG/2.5 ML UDC PO SCH ×4 (08:39→21:32)
[2019-06-29] MEDS: Insulin LISPRO 300 UNITS/3 ML VIAL SQ SCH ×3 (08:45→17:18)
[2019-06-29] MEDS: *HR* Rivaroxaban 10 MG TABLET PO SCH (17:17)
[2019-06-29] MEDS: *HR* HYDROcodone/Acet 7.5/325 mg TABLET PO PRN (18:57)
[2019-06-30] MEDS: *HR* HYDROcodone/Acet 7.5/325 mg TABLET PO PRN ×2 (01:57→18:15)
[2019-06-30] MEDS: Venlafaxine XR (24 HR) 37.5 MG CAP.ER.24H PO SCH (10:41)
[2019-06-30] MEDS: Famotidine 20 MG TABLET PO SCH ×2 (10:41→17:11)
[2019-06-30] MEDS: Vancomycin Oral Soln 125 MG/2.5 ML UDC PO SCH ×4 (10:41→22:20)
[2019-06-30] MEDS: Furosemide 40 MG TABLET PO SCH ×2 (10:42→17:11)
[2019-06-30] MEDS: GlipiZIDE 5 MG TABLET PO SCH (10:42)
[2019-06-30] MEDS: Insulin LISPRO 300 UNITS/3 ML VIAL SQ SCH ×3 (10:42→17:13)
[2019-06-30] MEDS: Metoprolol XL (24 HR) Succ 25 MG TAB.ER.24H PO SCH (10:42)
[2019-06-30] MEDS: *HR* Rivaroxaban 10 MG TABLET PO SCH (17:11)
[2019-07-01] MEDS: Vancomycin Oral Soln 125 MG/2.5 ML UDC PO SCH ×4 (08:38→20:29)
[2019-07-01] MEDS: Furosemide 40 MG TABLET PO SCH ×2 (08:39→15:46)
[2019-07-01] MEDS: Metoprolol XL (24 HR) Succ 25 MG TAB.ER.24H PO SCH (08:39)
[2019-07-01] MEDS: GlipiZIDE 5 MG TABLET PO SCH (08:39)
[2019-07-01] MEDS: Venlafaxine XR (24 HR) 37.5 MG CAP.ER.24H PO SCH (08:39)
[2019-07-01] MEDS: *HR* HYDROcodone/Acet 7.5/325 mg TABLET PO PRN (08:39)
[2019-07-01] MEDS: Famotidine 20 MG TABLET PO SCH ×2 (08:39→15:46)
[2019-07-01] MEDS: Insulin LISPRO 300 UNITS/3 ML VIAL SQ SCH ×3 (08:41→15:47)
[2019-07-01] MEDS: *HR* Rivaroxaban 10 MG TABLET PO SCH (15:46)
[2019-07-02] MEDS: GlipiZIDE 5 MG TABLET PO SCH (08:06)
[2019-07-02] MEDS: Famotidine 20 MG TABLET PO SCH (08:06)
[2019-07-02] MEDS: Metoprolol XL (24 HR) Succ 25 MG TAB.ER.24H PO SCH (08:07)
[2019-07-02] MEDS: Venlafaxine XR (24 HR) 37.5 MG CAP.ER.24H PO SCH (08:07)
[2019-07-02] MEDS: Vancomycin Oral Soln 125 MG/2.5 ML UDC PO SCH ×2 (08:07→11:58)
[2019-07-02] MEDS: Furosemide 40 MG TABLET PO SCH (08:07)
[2019-07-02] MEDS: Insulin LISPRO 300 UNITS/3 ML VIAL SQ SCH ×2 (08:08→11:58)
[2019-07-02 11:51] VITALS: BP 130/90
[2019-07-08] MEDS ORDERED: Vancomycin Oral Soln 125 MG/2.5 ML UDC PO SCH (09:00)
[2019-07-15] MEDS ORDERED: Vancomycin Oral Soln 125 MG/2.5 ML UDC PO SCH (09:00)
[2019-07-22] MEDS ORDERED: Vancomycin Oral Soln 125 MG/2.5 ML UDC PO SCH (09:00)
== END 2019-07-02 13:52 | disposition hospice, inpatient (51) | DRG 372 ==
LOC: 2ANU 21:51
PROVIDERS: ADMIT Internal Medicine Hospice and Palliative Medicine; ATTEND Internal Medicine Hospice and Palliative Medicine

== ENCOUNTER 2019-09-05 16:19 | Inpatient (IN) ==
[2019-09-05 16:46] LABS: Hemoglobin 14.1 g/dL (11.5-15.4); Mean Corpuscular HGB Conc 34.4 g/dL (31.6-35.5); Mean Corpuscular Hemoglobin 30.3 pg (28.0-33.3); Platelet Count 212 K/mcL (140-400); Red Blood Count 4.66 M/mcL (3.82-4.97); Red Cell Distribution Width 14.1 % (11.5-14.5); White Blood Count 7.9 K/mcL (4.3-11.1)
[2019-09-05 16:51] LABS: VBG HCO3 29 mEq/L (21-27); VBG PCO2 43 mmHg (41-51); VBG PH 7.45 pH Units (7.32-7.42); VBG PO2 35 mmHg (25-50)
[2019-09-05 16:53] LABS: INR 2.8; Prothrombin Time 31.4 Seconds (9.4-12.1)
[2019-09-05 16:55] LABS: Activated Partial Thrombo Time 40.2 Seconds (26.0-36.0)
[2019-09-05] MEDS ORDERED: Isovue-370 500 ML BOTTLE IVP ONE (17:10)
[2019-09-05 17:17] LABS: BUN/Creatinine Ratio 17 (6-26); Blood Urea Nitrogen 15 mg/dL (8-23); Calcium 9.4 mg/dL (8.6-10.3); Carbon Dioxide 29 mEq/L (23-29); Chloride 97 mEq/L (98-107); Glucose 606 mg/dL (70-105); Magnesium 1.9 mg/dL (1.6-2.6); Osmolality,Calculated 307 (280-300); Potassium 4.4 mEq/L (3.5-5.1); Sodium 134 mEq/L (136-145); eGFR For African Americans > 60 (> 60); eGFR For Non-African Americans > 60 (> 60)
[2019-09-05 17:30] LABS: Troponin I 0.03 ng/mL (< 0.04)
[2019-09-05] MEDS ORDERED: Insulin Human Regular 10 UNIT in 0.9 % Sodium Chloride 10 ML IV ONE (17:47)
[2019-09-05] MEDS ORDERED: 0.9 % Sodium Chloride 1,000 ML IVC ONE (17:47)
[2019-09-05] MEDS: 0.9 % Sodium Chloride 1,000 ML IVC SCH ×2 (18:20→19:34)
[2019-09-05 19:07] LABS: Bilirubin,Urine Negative (Negative); Blood,Urine Trace-lysed (Negative); Clarity,Urine Clear (Clear); Color,Urine Yellow (Yellow); Glucose,Urine (UA) >=1000 mg/dL (Normal); Ketones,Urine Negative (Negative); Leukocyte Esterase,Urine Trace (Negative); Nitrite,Urine Negative (Negative); Protein,Urine Negative (Neg-Trace); Urobilinogen,Urine Normal (Normal)
[2019-09-05 19:14] LABS: RBC,Urine 0-3 per hpf (0-3); Squamous Epithelial Cell,Urine Few per lpf (None-Few)
[2019-09-05 19:15] LABS: Bacteria,Urine Few per hpf (None-Few); Yeast,Urine Moderate per hpf (None Seen)
[2019-09-05] MEDS ORDERED: Insulin LISPRO 300 UNITS/3 ML VIAL SQ ONE (20:32)
[2019-09-05] MEDS ORDERED: Insulin Regular, Human 100 UNIT/ML SQ ONE (20:44)
[2019-09-05] MEDS ORDERED: Acetaminophen 325 MG TABLET PO PRN (21:49)
[2019-09-05] MEDS ORDERED: Naloxone 0.4 MG/ML INJ IVP PRN (21:49)
[2019-09-05] MEDS ORDERED: Ondansetron 4 MG/2 ML VIAL IVP PRN (21:49)
[2019-09-05] MEDS ORDERED: *HR* Dextrose 50 % in Water (Syg) 50 ML SYRINGE IVP PRN (21:51)
[2019-09-05] MEDS ORDERED: D5% in Water 1,000 ML IVC PRN (21:51)
[2019-09-05] MEDS ORDERED: Dextrose Gel 15 GM/37.5 ML TUBE PO PRN ×2 (21:51)
[2019-09-05] MEDS ORDERED: 0.9 % Sodium Chloride 1,000 ML IVC SCH (22:00)
[2019-09-05] MEDS: Insulin DETEMIR 100 UNIT/ML X5UNITS SQ SCH (23:14)
[2019-09-05] MEDS: Insulin LISPRO 300 UNITS/3 ML VIAL SQ SCH (23:59)
[2019-09-06 04:52] LABS: Basophils % 0.5 %; Eosinophils # 0.1 K/mcL (0.0-0.6); Eosinophils % 1.5 %; Hematocrit 39.6 % (35.3-44.9); Hemoglobin 13.5 g/dL (11.5-15.4); Immature Granulocytes % 0.6 % (0-4); Lymphocytes # 1.6 K/mcL (0.6-4.6); Lymphocytes % 18.9 %; Mean Corpuscular HGB Conc 34.1 g/dL (31.6-35.5); Mean Corpuscular Hemoglobin 29.8 pg (28.0-33.3); Mean Corpuscular Volume 87.4 fL (83.0-100.0); Monocytes # 0.8 K/mcL (0.0-1.3); Monocytes % 9.3 %; Neutrophils # 5.7 K/mcL (1.6-8.9); Platelet Count 207 K/mcL (140-400); Red Blood Count 4.53 M/mcL (3.82-4.97); Segmented Neutrophils % 69.2 %; White Blood Count 8.3 K/mcL (4.3-11.1)
[2019-09-06] MEDS: Insulin LISPRO 300 UNITS/3 ML VIAL SQ SCH ×4 (04:54→17:57)
[2019-09-06 04:56] LABS: INR 1.7; Prothrombin Time 19.3 Seconds (9.4-12.1)
[2019-09-06 04:59] LABS: Activated Partial Thrombo Time 31.5 Seconds (26.0-36.0)
[2019-09-06 05:13] LABS: Alanine Aminotransferase 7 Units/L (7-52); Albumin 3.2 g/dL (3.5-5.7); Albumin/Globulin Ratio 1.3 (1.1-2.2); Alkaline Phosphatase 69 Units/L (34-104); Aspartate Amino Transferase 12 Units/L (13-39); BUN/Creatinine Ratio 21 (6-26); Bilirubin,Total 0.7 mg/dL (0.3-1.0); Blood Urea Nitrogen 11 mg/dL (8-23); Calcium 8.9 mg/dL (8.6-10.3); Carbon Dioxide 27 mEq/L (23-29); Chloride 106 mEq/L (98-107); Globulin 2.5 g/dL (2.4-3.5); Glucose 100 mg/dL (70-105); Osmolality,Calculated 291 (280-300); Phosphorous 3.1 mg/dL (2.7-4.5); Potassium 3.2 mEq/L (3.5-5.1); Sodium 141 mEq/L (136-145); Total Protein 5.7 g/dL (6.4-8.9); eGFR For African Americans > 60 (> 60); eGFR For Non-African Americans > 60 (> 60)
[2019-09-06] MEDS: Nystatin POWDER 30 GM BOTTLE TP SCH ×4 (05:52→21:42)
[2019-09-06] MEDS: D5% in 0.45% NACL 1,000 ML IVC SCH (06:46)
[2019-09-06 09:10] LABS: Estimated Average Glucose 280 mg/dl
[2019-09-06] MEDS ORDERED: Isovue-370 500 ML BOTTLE IVP ONE (09:41)
[2019-09-06] MEDS: Potassium Chloride Elixir 20 MEQ/15 ML UDC PO SCH ×2 (11:27→15:27)
[2019-09-06] MEDS: Venlafaxine XR (24 HR) 37.5 MG CAP.ER.24H PO SCH (11:28)
[2019-09-06] MEDS: Metoprolol XL (24 HR) Succ 25 MG TAB.ER.24H PO SCH (11:28)
[2019-09-06] MEDS ORDERED: Potassium Chloride Elixir 20 MEQ/15 ML UDC PO SCH (14:00)
[2019-09-06] MEDS: *HR* Rivaroxaban 10 MG TABLET PO SCH (17:56)
[2019-09-06] MEDS ORDERED: *HR* Rivaroxaban 10 MG TABLET PO SCH (18:00)
[2019-09-06] MEDS ORDERED: Haloperidol Lactate 5 MG/ML VIAL IVP PRN (18:59)
[2019-09-06] MEDS ORDERED: *HR* Promethazine 25 MG/ML VIAL IVP ONE (20:17)
[2019-09-06] MEDS: Insulin DETEMIR 100 UNIT/ML X5UNITS SQ SCH (20:33)
[2019-09-06] MEDS ORDERED: *HR* Metoprolol 5 MG/5 ML VIAL IVP ONE (23:27)
[2019-09-07] MEDS: D5% in 0.45% NACL 1,000 ML IVC SCH (03:34)
[2019-09-07] MEDS ORDERED: *HR* Metoprolol 5 MG/5 ML VIAL IVP ONE (03:47)
[2019-09-07] MEDS ORDERED: Potassium Chloride 20 MEQ, Lidocaine 1% 2 ML in 0.9 % Sodium Chloride 250 ML IVPB ONE (03:49)
[2019-09-07] MEDS ORDERED: Insulin Human Regular 10 UNIT in 0.9 % Sodium Chloride 10 ML IV ONE (03:50)
[2019-09-07] MEDS ORDERED: levoFLOXacin 750 MG/150 ML 750 MG/150 ML BAG IVPB SCH (06:15)
[2019-09-07 07:01] LABS: Basophils % 0.3 %; Eosinophils # 0.1 K/mcL (0.0-0.6); Eosinophils % 0.5 %; Hematocrit 42.6 % (35.3-44.9); Hemoglobin 13.8 g/dL (11.5-15.4); Immature Granulocytes % 0.6 % (0-4); Lymphocytes # 1.9 K/mcL (0.6-4.6); Lymphocytes % 14.4 %; Mean Corpuscular HGB Conc 32.4 g/dL (31.6-35.5); Mean Corpuscular Hemoglobin 29.6 pg (28.0-33.3); Mean Corpuscular Volume 91.2 fL (83.0-100.0); Mean Platelet Volume 10.3 fL (9.4-12.4); Monocytes # 1.5 K/mcL (0.0-1.3); Monocytes % 11.4 %; Neutrophils # 9.7 K/mcL (1.6-8.9); Platelet Count 214 K/mcL (140-400); Red Blood Count 4.67 M/mcL (3.82-4.97); Red Cell Distribution Width 14.6 % (11.5-14.5); Segmented Neutrophils % 72.8 %
[2019-09-07 07:02] LABS: White Blood Count 13.3 K/mcL (4.3-11.1)
[2019-09-07] MEDS ORDERED: 0.9 % Sodium Chloride Mini Bag 100 ML ONE (12:51)
[2019-09-07 20:09] LABS: Alanine Aminotransferase 7 Units/L (7-52); Albumin 3.3 g/dL (3.5-5.7); Albumin/Globulin Ratio 1.3 (1.1-2.2); Alkaline Phosphatase 73 Units/L (34-104); Aspartate Amino Transferase 16 Units/L (13-39); BUN/Creatinine Ratio 13 (6-26); Bilirubin,Total 0.7 mg/dL (0.3-1.0); Blood Urea Nitrogen 10 mg/dL (8-23); Calcium 9.2 mg/dL (8.6-10.3); Carbon Dioxide 22 mEq/L (23-29); Chloride 106 mEq/L (98-107); Globulin 2.6 g/dL (2.4-3.5); Glucose 102 mg/dL (70-105); Osmolality,Calculated 285 (280-300); Potassium 4.4 mEq/L (3.5-5.1); Sodium 138 mEq/L (136-145); Total Protein 5.9 g/dL (6.4-8.9); eGFR For African Americans > 60 (> 60); eGFR For Non-African Americans > 60 (> 60)
[2019-09-07] MEDS: Nystatin POWDER 30 GM BOTTLE TP SCH ×3 (20:15→20:25)
[2019-09-07] MEDS: Venlafaxine XR (24 HR) 37.5 MG CAP.ER.24H PO SCH (20:25)
[2019-09-07] MEDS: Metoprolol XL (24 HR) Succ 25 MG TAB.ER.24H PO SCH (20:26)
[2019-09-07] MEDS: Insulin LISPRO 300 UNITS/3 ML VIAL SQ SCH ×3 (20:26→20:28)
[2019-09-07] MEDS: Loratadine 10 MG TABLET PO SCH (20:29)
[2019-09-07] MEDS ORDERED: Insulin DETEMIR 100 UNIT/ML X5UNITS SQ SCH (21:00)
[2019-09-08] MEDS: *HR* Rivaroxaban 10 MG TABLET PO SCH ×2 (01:14→18:27)
[2019-09-08] MEDS: Insulin LISPRO 300 UNITS/3 ML VIAL SQ SCH ×5 (05:56→21:19)
[2019-09-08] MEDS: Ertapenem 1,000 MG in 0.9 % Sodium Chloride Mini Bag 100 ML IVPB SCH (09:08)
[2019-09-08] MEDS: Loratadine 10 MG TABLET PO SCH (09:09)
[2019-09-08] MEDS: Venlafaxine XR (24 HR) 37.5 MG CAP.ER.24H PO SCH (09:09)
[2019-09-08] MEDS: Metoprolol XL (24 HR) Succ 25 MG TAB.ER.24H PO SCH (09:09)
[2019-09-08] MEDS: Nystatin POWDER 30 GM BOTTLE TP SCH ×3 (09:09→21:28)
[2019-09-08 09:33] LABS: Hematocrit 42.4 % (35.3-44.9); Hemoglobin 14.5 g/dL (11.5-15.4); Mean Corpuscular HGB Conc 34.2 g/dL (31.6-35.5); Mean Corpuscular Hemoglobin 29.8 pg (28.0-33.3); Mean Corpuscular Volume 87.1 fL (83.0-100.0); Mean Platelet Volume 10.5 fL (9.4-12.4); Platelet Count 203 K/mcL (140-400); Red Blood Count 4.87 M/mcL (3.82-4.97); Red Cell Distribution Width 14.6 % (11.5-14.5); White Blood Count 11.1 K/mcL (4.3-11.1)
[2019-09-08 13:22] LABS: Adenovirus Not Detected (Not Detect); Bordetella Pertussis Not Detected (Not Detect); Chlamydophila pneumoniae Not Detected (Not Detect); Coronavirus 229E Not Detected (Not Detect); Coronavirus HKU1 Not Detected (Not Detect); Coronavirus NL63 Not Detected (Not Detect); Coronavirus OC43 Not Detected (Not Detect); Human Metapneumovirus Not Detected (Not Detect); Human Rhinovirus/Enterovirus Not Detected (Not Detect); Influenza A Subtype 2009 H1 Not Detected (Not Detect); Influenza A Untypeable Not Detected (Not Detect); Influenza B Not Detected (Not Detect); Mycoplasma pneumoniae Not Detected (Not Detect); Parainfluenza Virus 1 Not Detected (Not Detect); Parainfluenza Virus 2 Not Detected (Not Detect); Parainfluenza Virus 3 Not Detected (Not Detect); Parainfluenza Virus 4 Not Detected (Not Detect); Respiratory Syncytial Virus Not Detected (Not Detect)
[2019-09-08] MEDS ORDERED: Insulin DETEMIR 100 UNIT/ML X5UNITS SQ SCH (21:00)
[2019-09-09 07:00] LABS: Basophils % 0.6 %; Eosinophils # 0.1 K/mcL (0.0-0.6); Eosinophils % 1.8 %; Hematocrit 39.8 % (35.3-44.9); Immature Granulocytes % 0.6 % (0-4); Lymphocytes # 1.5 K/mcL (0.6-4.6); Lymphocytes % 21.4 %; Mean Corpuscular HGB Conc 32.4 g/dL (31.6-35.5); Mean Corpuscular Hemoglobin 29.7 pg (28.0-33.3); Mean Corpuscular Volume 91.7 fL (83.0-100.0); Neutrophils # 4.2 K/mcL (1.6-8.9); Platelet Count 159 K/mcL (140-400); Red Blood Count 4.34 M/mcL (3.82-4.97); Red Cell Distribution Width 14.3 % (11.5-14.5); Segmented Neutrophils % 61.6 %; White Blood Count 6.8 K/mcL (4.3-11.1)
[2019-09-09 07:15] LABS: Hemoglobin 12.9 g/dL (11.5-15.4)
[2019-09-09 07:30] LABS: BUN/Creatinine Ratio 18 (6-26); Blood Urea Nitrogen 11 mg/dL (8-23); Calcium 8.6 mg/dL (8.6-10.3); Carbon Dioxide 24 mEq/L (23-29); Chloride 106 mEq/L (98-107); Glucose 86 mg/dL (70-105); Osmolality,Calculated 285 (280-300); Sodium 138 mEq/L (136-145); eGFR For African Americans > 60 (> 60); eGFR For Non-African Americans > 60 (> 60)
[2019-09-09] MEDS: Insulin LISPRO 300 UNITS/3 ML VIAL SQ SCH ×4 (11:23→20:33)
[2019-09-09] MEDS: Ertapenem 1,000 MG in 0.9 % Sodium Chloride Mini Bag 100 ML IVPB SCH (11:32)
[2019-09-09] MEDS: Loratadine 10 MG TABLET PO SCH (11:32)
[2019-09-09] MEDS: Metoprolol XL (24 HR) Succ 25 MG TAB.ER.24H PO SCH (11:32)
[2019-09-09] MEDS: Venlafaxine XR (24 HR) 37.5 MG CAP.ER.24H PO SCH (11:32)
[2019-09-09] MEDS: Nystatin POWDER 30 GM BOTTLE TP SCH ×3 (11:36→20:37)
[2019-09-09] MEDS: *HR* Rivaroxaban 10 MG TABLET PO SCH (18:13)
[2019-09-09] MEDS ORDERED: Insulin DETEMIR 100 UNIT/ML X5UNITS SQ SCH (21:00)
[2019-09-10] MEDS: Insulin LISPRO 300 UNITS/3 ML VIAL SQ SCH ×4 (07:23→22:23)
[2019-09-10] MEDS: Venlafaxine XR (24 HR) 37.5 MG CAP.ER.24H PO SCH (08:55)
[2019-09-10] MEDS: Loratadine 10 MG TABLET PO SCH (08:55)
[2019-09-10] MEDS: Nystatin POWDER 30 GM BOTTLE TP SCH ×3 (08:56→22:26)
[2019-09-10] MEDS: Ertapenem 1,000 MG in 0.9 % Sodium Chloride Mini Bag 100 ML IVPB SCH (08:56)
[2019-09-10] MEDS: Metoprolol XL (24 HR) Succ 25 MG TAB.ER.24H PO SCH (08:56)
[2019-09-10] MEDS: *HR* Rivaroxaban 10 MG TABLET PO SCH (17:07)
[2019-09-11] MEDS: Insulin LISPRO 300 UNITS/3 ML VIAL SQ SCH ×2 (07:34→11:33)
[2019-09-11] MEDS: Venlafaxine XR (24 HR) 37.5 MG CAP.ER.24H PO SCH (09:23)
[2019-09-11] MEDS: Metoprolol XL (24 HR) Succ 25 MG TAB.ER.24H PO SCH (09:24)
[2019-09-11] MEDS: Loratadine 10 MG TABLET PO SCH (09:24)
[2019-09-11] MEDS: Ertapenem 1,000 MG in 0.9 % Sodium Chloride Mini Bag 100 ML IVPB SCH (09:27)
[2019-09-11 10:40] VITALS: BP 130/73
[2019-09-11] MEDS: Nystatin POWDER 30 GM BOTTLE TP SCH (11:37)
== END 2019-09-11 14:00 | disposition hospice, inpatient (51) | DRG 637 ==
LOC: EMEROOARM 16:19 → 2NENU 16:19 → 2ANU 16:19 → SUATTDRO 21:20 → 2ANU 22:26
PROVIDERS: ADMIT Internal Medicine; ATTEND Internal Medicine

== ENCOUNTER 2019-09-11 09:34 | Inpatient (IN) ==
[2019-09-11] MEDS ORDERED: Dextrose Gel 15 GM/37.5 ML TUBE PO PRN ×2 (14:49)
[2019-09-11] MEDS ORDERED: D5% in Water 1,000 ML IVC PRN (14:49)
[2019-09-11] MEDS ORDERED: rOPINIRole 0.25 MG TABLET PO PRN ×2 (14:49→14:53)
[2019-09-11] MEDS ORDERED: *HR* Dextrose 50 % in Water (Syg) 50 ML SYRINGE IVP PRN (14:49)
[2019-09-11] MEDS ORDERED: risperiDONE 0.25 MG TABLET PO PRN (15:02)
[2019-09-11] MEDS ORDERED: Insulin LISPRO 300 UNITS/3 ML VIAL SQ SCH (16:30)
[2019-09-11] MEDS: Insulin LISPRO 300 UNITS/3 ML VIAL SQ SCH (17:01)
[2019-09-11] MEDS: Nystatin POWDER 30 GM BOTTLE TP SCH ×2 (17:02→22:11)
[2019-09-11] MEDS: *HR* Rivaroxaban 10 MG TABLET PO SCH (17:07)
[2019-09-11] MEDS ORDERED: Morphine Sulfate Oral CONC 10 MG/0.5 ML ORAL.SYG SL PRN (17:32)
[2019-09-11] MEDS: Morphine Sulfate Oral CONC 10 MG/0.5 ML ORAL.SYG SL PRN (21:03)
[2019-09-12] MEDS: Morphine Sulfate Oral CONC 10 MG/0.5 ML ORAL.SYG SL PRN (01:39)
[2019-09-12] MEDS: Loratadine 10 MG TABLET PO SCH (07:37)
[2019-09-12] MEDS: Metoprolol XL (24 HR) Succ 25 MG TAB.ER.24H PO SCH (07:37)
[2019-09-12] MEDS: Venlafaxine XR (24 HR) 37.5 MG CAP.ER.24H PO SCH (07:37)
[2019-09-12] MEDS: Insulin LISPRO 300 UNITS/3 ML VIAL SQ SCH ×3 (07:42→17:23)
[2019-09-12] MEDS: Nystatin POWDER 30 GM BOTTLE TP SCH ×4 (07:42→22:59)
[2019-09-12] MEDS ORDERED: *HR* HYDROcodone/Acet 7.5/325 mg TABLET PO PRN (11:11)
[2019-09-12] MEDS: *HR* Rivaroxaban 10 MG TABLET PO SCH (17:27)
[2019-09-13] MEDS: Loratadine 10 MG TABLET PO SCH (10:25)
[2019-09-13] MEDS: Metoprolol XL (24 HR) Succ 25 MG TAB.ER.24H PO SCH (10:25)
[2019-09-13] MEDS: Venlafaxine XR (24 HR) 37.5 MG CAP.ER.24H PO SCH (10:25)
[2019-09-13] MEDS: Nystatin POWDER 30 GM BOTTLE TP SCH ×2 (10:26→15:22)
[2019-09-13] MEDS: Insulin LISPRO 300 UNITS/3 ML VIAL SQ SCH ×3 (10:27→17:43)
[2019-09-13] MEDS: *HR* Rivaroxaban 10 MG TABLET PO SCH (17:48)
[2019-09-14] MEDS: Nystatin POWDER 30 GM BOTTLE TP SCH ×4 (07:43→19:57)
[2019-09-14] MEDS: Metoprolol XL (24 HR) Succ 25 MG TAB.ER.24H PO SCH (10:06)
[2019-09-14] MEDS: Insulin LISPRO 300 UNITS/3 ML VIAL SQ SCH ×3 (10:06→16:41)
[2019-09-14] MEDS: Venlafaxine XR (24 HR) 37.5 MG CAP.ER.24H PO SCH (10:06)
[2019-09-14] MEDS: Loratadine 10 MG TABLET PO SCH (10:06)
[2019-09-14] MEDS: *HR* Rivaroxaban 10 MG TABLET PO SCH (17:12)
[2019-09-15] MEDS: Loratadine 10 MG TABLET PO SCH (09:03)
[2019-09-15] MEDS: Nystatin POWDER 30 GM BOTTLE TP SCH ×3 (09:03→20:41)
[2019-09-15] MEDS: Insulin LISPRO 300 UNITS/3 ML VIAL SQ SCH ×3 (09:03→17:19)
[2019-09-15] MEDS: Venlafaxine XR (24 HR) 37.5 MG CAP.ER.24H PO SCH (09:03)
[2019-09-15] MEDS: Metoprolol XL (24 HR) Succ 25 MG TAB.ER.24H PO SCH (09:03)
[2019-09-15] MEDS: Albuterol 2.5 MG/3 ML NEBULIZER IH PRN (13:15)
[2019-09-15] MEDS: *HR* Rivaroxaban 10 MG TABLET PO SCH (17:19)
[2019-09-16 07:57] VITALS: BP 126/82
[2019-09-16] MEDS: Venlafaxine XR (24 HR) 37.5 MG CAP.ER.24H PO SCH (10:02)
[2019-09-16] MEDS: Loratadine 10 MG TABLET PO SCH (10:02)
[2019-09-16] MEDS: Metoprolol XL (24 HR) Succ 25 MG TAB.ER.24H PO SCH (10:02)
[2019-09-16] MEDS: Nystatin POWDER 30 GM BOTTLE TP SCH (10:03)
[2019-09-16] MEDS: Insulin LISPRO 300 UNITS/3 ML VIAL SQ SCH (10:03)
[2019-09-16] MEDS: Albuterol 2.5 MG/3 ML NEBULIZER IH PRN (10:04)
[2019-09-16] MEDS ORDERED: FLU Vac QV 19-20 (6Month+)/PF 0.5 ML SYRINGE IM ONE (10:23)
== END 2019-09-16 12:15 | disposition hospice, inpatient (51) | DRG 951 ==
LOC: 2ANU 14:18
PROVIDERS: ADMIT Internal Medicine Hospice and Palliative Medicine; ATTEND Internal Medicine Hospice and Palliative Medicine